=== PATIENT | female | born 1990 | race Caucasian/White ===

== ENCOUNTER 2016-03-27 20:04 | Inpatient (IN) | payer SELFPAY ==
[~2016-03-27] VITALS: Ht 165.1 cm; Wt 87.0 kg
[~2016-03-27 20:04] MED LIST: METO-157 PO
[2016-03-27 21:12] LABS: BASO % 0.1 %; BASO ABS # 0.01 K/uL (0-0.2); COMPLETE YES; EOS % 0.6 %; HEMATOCRIT 40.3 % (37-47); IG% 0.2 %; LYMPH % 26.2 %; LYMPH ABS # 2.97 K/uL (1.2-3.4); MEAN CELL VOLUME 86.7 fL (80-100); MEAN CORPUSCULAR HEMOGLOBIN 30.8 pg (25-34); MEAN CORPUSCULAR HGB CONC 35.5 g/dl (32-36); MEAN PLATELET VOLUME 11.1 fL (7.4-10.4); MONO % 4.3 %; NEUT % 68.6 %; PLATELET COUNT 214 K/uL (130-400); RED BLOOD COUNT 4.65 M/uL (4.2-5.4); WHITE BLOOD COUNT 11.33 K/uL (4.8-10.8)
--- NOTE | 2016-03-27 21:14 | EMERGENCY ROOM VISIT NOTE ---
History Report prepared by Ananya: Jake West Under the Supervision of: Dr. Dahiana Carrera M.D. First contact with patient: 20:34 Chief Complaint: OVERDOSE (INTENTIONAL) Stated Complaint: OVERDOSE History of Present Illness The patient is a 25 year old female who presents to the Emergency Room with complaints of an acute overdose that occurred earlier this evening. The patient took 4 -200mg Seroquel tabs at 7:45pm that she is prescribed in an attempt to fall asleep. She states that she filled her bathtub up to take a quick bath before going to sleep. The patient states that she has been unable to sleep due to stress and work. She has been working 10-12 hours per day for the past 10 days at [employer]. She has been stressed over a recent break up, her lease ending, and needing a new car. The patient called an ambulance because she started to feel palpitations which made her nervous. Upon arrival, EMS found a note on the patient's mirror that said "I'm sorry I wasn't good enough, you won' t be seeing me in 2017." The patient states that the note was meant for her ex who she is currently cohabitating with. She denies suicidality, and states that the note meant that she is moving to [place] in 2017. The patient did not take any other medications or alcohol. She does not cut herself. The patient gets her Seroquel prescription from Dr. Graves at [facility]. She was admitted for mental health at [place] in September 2013. At that time, she was dealing with her children being taken away from her. She was also homeless. The patient has a history of bipolar disorder, anxiety, and ADHD. Source of History: patient Onset: this evening Position: other (global) Quality: other (overdose (Seroquel)) Timing: other (acute) Modifying Factors (Worsening): other (lack of sleep, stress) Review of Systems See HPI for pertinent positives & negatives. A total of 10 systems reviewed and were otherwise negative. Past Medical & Surgical Medical Problems: (1) ASTHMA, UNSPECIFIED (2) ATTN DEFICIT W HYPERACT (3) BIPOLAR DISORDER, UNSPECIFIED (4) Borderline personality disorder (5) Cannabis abuse (6) Chronic abdominal pain (7) Depressive disorder (8) Gallstone (9) GERD (gastroesophageal reflux disease) (10) Hypokalemia (11) Migraine (12) Ovarian cyst (13) Palpitations (14) Pelvic pain (15) Tobacco abuse (16) TOBACCO USE DISORDER Surgical Problems: (1) History of cholecystectomy (2) S/p pin of distal finger fracture Family History Asthma MOTHER Blood clots MATERNAL GRANDMOTHER Diabetes mellitus FH: cancer MATERNAL GRANDMOTHER (lung CA) FH: heart disease MATERNAL GRANDMOTHER MATERNAL GRANDFATHER FH: lung disease Gallbladder disease Hypertension MATERNAL GRANDMOTHER Kidney disease Kidney stones Stroke MATERNAL GRANDFATHER Social History Smoking Status: Current Every Day Smoker Alcohol Use: none Drug Use: none Marital Status: in relationship Housing Status: other Occupation Status: employed Current/Historical Medications No Active Prescriptions or Reported Meds Allergies Coded Allergies: Nitrofurantoin (Verified Allergy, Severe, ANAPHYLAXIS, 03/27/16) Mometasone (Verified Adverse Reaction, Severe, migraines, 03/27/16) Physical Exam Vital Signs Date Time Temp Pulse Resp B/P Pulse Ox O2 Delivery O2 Flow Rate FiO2 03/28/16 00:23 75 03/27/16 23:16 98 14 112/62 97 Room Air 03/27/16 20:22 116 03/27/16 20:19 36.7 157 20 143/86 95 Room Air Physical Exam Vital signs reviewed. General: Somnolent, disheveled-appearing female. HEENT: No scleral icterus, PERRLA, neck supple. Atraumatic. Cardiovascular: Tachycardic, regular rhythm, no extra sounds. Pulmonary: Clear to auscultation bilaterally, normal work of breathing. Abdomen: Soft, nontender, nondistended, positive bowel sounds. Musculoskeletal: Atraumatic, no peripheral edema. Neurologic: Patient somnolent but arousable. Answers questions appropriately. Patient does follow commands. Skin: Warm, dry, no rash. Atraumatic. Psych: Patient denies suicidal ideations or homicidal ideations. Medical Decision & Procedures Laboratory Results Test 03/27/16 20:15 03/27/16 20:57 Urine Color YELLOW Urine Appearance CLEAR (CLEAR) Urine pH 6.5 (4.5-7.5) Urine Specific Dow 1.000 (1.000-1.030) Urine Protein NEG (NEG) Urine Glucose (UA) NEG (NEG) Urine Ketones NEG (NEG) Urine Occult Blood NEG (NEG) Urine Nitrite NEG (NEG) Urine Bilirubin NEG (NEG) Urine Urobilinogen NEG (NEG) Urine Leukocyte Esterase NEG (NEG) Urine Test NEG (NEG) Urine Opiates Screen NEG (NEG) Urine Methadone, Qualitative NEG (NEG) Urine Barbiturates NEG (NEG) Urine Phencyclidine (PCP) Level NEG (NEG) Ur Amphetamine/Methamphetamine NEG (NEG) MDMA (Ecstasy) Screen NEG (NEG) Urine Benzodiazepines Screen NEG (NEG) Urine Cocaine Metabolite NEG (NEG) Urine Marijuana (THC) POS (NEG) Activated Partial Thromboplast Time 25.0 SECONDS (21.0-31.0) Partial Thromboplastin Ratio 1.0 D-Dimer 530 ug/L FEU (0-500) Magnesium Level 1.8 mg/dl (1.8-2.4) Total Bilirubin 0.5 mg/dl (0.2-1) Direct Bilirubin 0.1 mg/dl (0-0.2) Aspartate Amino Transf (AST/SGOT) 20 U/L (15-37) Alanine Aminotransferase (ALT/SGPT) 18 U/L (12-78) Alkaline Phosphatase 88 U/L (45-117) Total Creatine Kinase 94 U/L (26-192) Creatine Kinase MB 0.5 ng/ml (0.5-3.6) Creatine Kinase MB Ratio 0.5 (0-3.0) Total Protein 7.3 gm/dl (6.4-8.2) Albumin 4.0 gm/dl (3.4-5.0) Thyroid Stimulating Hormone (TSH) 0.747 uIu/ml (0.300-4.500) Salicylates Level 2.7 mg/dl (2.8-20) Acetaminophen Level < 2 ug/ml (10-30) Ethyl Alcohol mg/dL < 3.0 mg/dl (0-3) Laboratory results per my review. Medications Administered Medications (Trade) Dose Ordered Sig/Tamra Route Start Time Stop Time Status Last Admin Dose Admin Potassium Chloride 20 meq 20 meq NOW STAT IV 03/27/16 22:06 03/27/16 22:08 DC 03/27/16 22:23 20 MEQ Sodium Chloride 1,000 ml @ 999 mls/hr Q1H1M STAT IV 03/27/16 22:23 03/27/16 23:23 DC 03/27/16 22:32 999 MLS/HR Sodium Chloride (Nss 1000ml) 1,000 ml @ 125 mls/hr Q8H STAT IV 03/27/16 22:23 03/27/16 22:36 DC 03/27/16 22:32 125 MLS/HR Potassium Chloride (Klor-Con M10) 60 meq NOW STAT PO 03/27/16 23:01 03/27/16 23:11 DC 03/27/16 23:17 60 MEQ ECG Indication: other (Overdose) Rate (beats per minute): 122 Rhythm: sinus tachycardia Findings: nonspecific-ST abn (Inferior), Q waves (Inferior), ST depression ( Lateral), T-wave inversion, other (QTC 464) Change: ST/T wave abnormalities are new in the inferior and lateral leads. ED Course 2056: Past medical records reviewed. The patient was evaluated in room C12b. A complete history and physical examination was performed. 6: Potassium Chloride 20 meq IV. 2215: Discussed the case with Poison Control. 2223: NSS 1000 ml @ 125 mls/hr, NSS 1000 ml @ 999 mls/hr. 2225: The patient took a picture of the pills before she ingested them. 2229: Spoke with Dr. Redman, [facility]. The patient will be evaluated. Medical Decision Etiologies such as mood disorder, infection, hypoglycemia, electrolyte abnormalities, cardiac sources, intracerebral event, toxicologic, neurologic, as well as others were entertained. This patient was evaluated and appeared to be in no significant distress. Physical examination is consistent with medication overdose. She is tachycardic but hemodynamically stable otherwise. She was hydrated with normal saline solution with some improvement. EKG reveals a borderline QTC. Poison control was contacted. The patient was unclear as to whether or not this was extended release or immediate release Seroquel. She needs to be observed on the athletic monitor for 6-12 hours after the ingestion. Patient has multiple psychosocial stressors including 3 children that haven't opted out through [employer], financial strain and long work hours, and a recent relationship loss. The patient with left a note concerning for suicidal statements, she took a picture of the pills and symptom to her friend prior to ingesting, and she had a bathtub full of water. Although she denies any suicidal ideation and states she just wanted to sleep, I'm concerned about the circumstances surrounding the incident. A 302 statement has been filed by EMS. At this time she will be medically admitted through the hospitalist service. Psychiatric consultation will be needed. Consults Time Called: 2219 Consulting Physician: Jama Johnson Hospitalist Returned Call: [phone]: Spoke with Jama Johnson. The patient will be evaluated. Impression Primary Impression: Medication overdose Scribe Attestation The scribe's documentation has been prepared under my direction and personally reviewed by me in its entirety. I confirm that the note above accurately reflects all work, treatment, procedures, and medical decision making performed by me. Departure Information Dispostion Being Evaluated By Hospitalist Prescriptions No Active Prescriptions or Reported Meds Referrals No Doctor, Assigned (PCP) Patient Instructions A Signature Page, My [facility]
[2016-03-27 21:22] LABS: URINE APPEARANCE CLEAR (CLEAR); URINE BILIRUBIN NEG (NEG); URINE COLOR YELLOW; URINE NITRITE NEG (NEG); URINE PH 6.5 (4.5-7.5); UROBILINOGEN NEG (NEG); ZZUR CULT IF INDIC CLEAN CATCH NO
[2016-03-27 21:31] LABS: BUN/CREATININE RATIO 9.1 (10-20); CREATININE 0.85 mg/dl (0.60-1.20); POTASSIUM 2.7 mmol/L (3.5-5.1)
[2016-03-27 21:33] LABS: MANUAL MICROSCOPIC REQUIRED? NO; REVIEW REQ? NO
[2016-03-27 21:33] LABS: ACETAMINOPHEN < 2 ug/ml (10-30)
[2016-03-27 21:39] LABS: BENZODIAZEPINE, URINE NEG (NEG); COCAINE,URINE NEG (NEG); PHENCYCLIDINE, URINE NEG (NEG)
[2016-03-27] MEDS ORDERED: POTASSIUM CHLORIDE 10 MEQ / 100ML WTR IV STA (22:06)
[2016-03-27] MEDS ORDERED: SODIUM CHLORIDE 0.9% 1000ML 1,000 ML IV STA ×2 (22:23)
[2016-03-27] MEDS ORDERED: LACTATED RINGER'S 1000ML 1,000 ML IV SCH (22:45)
[2016-03-27] MEDS ORDERED: POTASSIUM CHLORIDE 10 MEQ TABCR PO STA (23:01)
[2016-03-27 23:03] LABS: CKMB/CK RATIO 0.5 (0-3.0); MAGNESIUM 1.8 mg/dl (1.8-2.4)
[2016-03-27] MEDS ORDERED: OPTIRAY 320 IV PRN (23:45)
[2016-03-28] VITALS (8 sets, daily range): BP systolic 109–141; BP diastolic 71–90; PULSE 55–88; TEMP 36.3–36.8; O2SAT 92–100; Ht 165.1 cm; Wt 87.0 kg
[2016-03-28] MEDS ORDERED: KETOROLAC TROMETHAMINE 30 MG/ML VIAL IV PRN (01:45)
[2016-03-28] MEDS ORDERED: NITROGLYCERIN 0.4 MG SL PER TAB CHARGE SL PRN (01:45)
[2016-03-28] MEDS ORDERED: ONDANSETRON INJ 2 MG/ML 2 ML VIAL IV PRN (01:45)
[2016-03-28] MEDS ORDERED: TRAMADOL HCL 50 MG TAB PO PRN (01:45)
[2016-03-28] MEDS ORDERED: LACTATED RINGER'S 1000ML 1,000 ML IV ONE (01:45)
[2016-03-28] MEDS ORDERED: ACETAMINOPHEN 325 MG TAB PO PRN (01:45)
[2016-03-28] MEDS ORDERED: IBUPROFEN 200 MG TAB PO PRN (01:45)
[2016-03-28 06:55] LABS: BASO % 0.3 %; BASO ABS # 0.03 K/uL (0-0.2); COMPLETE YES; EOS % 3.2 %; HEMATOCRIT 36.8 % (37-47); IG% 0.2 %; LYMPH % 46.1 %; LYMPH ABS # 4.75 K/uL (1.2-3.4); MEAN CELL VOLUME 87.6 fL (80-100); MEAN CORPUSCULAR HEMOGLOBIN 29.8 pg (25-34); MONO % 6.1 %; NEUT % 44.1 %; PLATELET COUNT 182 K/uL (130-400); WHITE BLOOD COUNT 10.31 K/uL (4.8-10.8)
--- NOTE | 2016-03-28 07:24 | DIAGNOSTIC IMAGING REPORT ---
CT ANGIOGRAM OF THE CHEST CLINICAL HISTORY: Palpitations. Overdose. COMPARISON STUDY: Chest CT scans dated 07/19/2015 and 09/29/2013. TECHNIQUE: Following the IV administration of 94 cc of Optiray 320, CT angiogram of the chest was performed from the upper abdomen to the thoracic inlet utilizing the pulmonary embolus protocol. Images are reviewed in the axial, sagittal, and coronal planes. 3-D MIPS images are created and assessed. IV contrast was administered without complication. CT DOSE: 355.83 mGy.cm FINDINGS: Thyroid: Imaged portions of the thyroid gland are normal in size and attenuation. Thoracic aorta: The thoracic aorta is normal in caliber and demonstrates standard 3-vessel arch anatomy. No dissection is seen. Pulmonary vasculature: The pulmonary trunk is normal in caliber. There are no filling defects identified in main, lobar, or segmental pulmonary branches to suggest pulmonary embolus. Heart: The heart is normal in size and configuration, and without pericardial effusion. Lungs and pleural spaces: There are trace pleural effusions with dependent consolidation. The trachea and central airways are clear. Mediastinum: There is no mediastinal lymphadenopathy. Nenita: Clear. Axillae: There is no axillary lymphadenopathy. Upper abdomen: The liver is enlarged and steatotic. Cholecystectomy clips are noted. More focal fatty infiltration is seen adjacent to the falciform ligament. Skeletal structures: No lytic or blastic bony lesions are seen. IMPRESSION: 1. There is no evidence of pulmonary embolus in the main, lobar, or segmental pulmonary arteries. 2. There are trace pleural effusions with dependent airspace consolidation. This could represent atelectasis, aspiration pneumonitis, and/or pneumonia. Clinical correlation will be required. 3. Hepatic steatosis. Electronically signed by: Uriel Lopez M.D. 03/28/2016 7:22 AM
[2016-03-28 07:26] LABS: BUN/CREATININE RATIO 6.2 (10-20); CALCIUM 8.4 mg/dl (8.5-10.1); CREATININE 0.78 mg/dl (0.60-1.20); POTASSIUM 3.5 mmol/L (3.5-5.1)
[2016-03-28] MEDS ORDERED: INFLUENZA ADMINISTRATION CHARGE ONE (08:00)
[2016-03-28] MEDS ORDERED: INFLUENZA VIRUS QUAD VACCINE 0.5 ML SYR IM. ONE (08:00)
--- NOTE | 2016-03-28 08:36 | HISTORY & PHYSICAL EXAMINATION ---
DATE OF ADMISSION: 03/28/2016 PRIMARY CARE DOCTOR: Dr. Brand. Hx obtained from px and records. CHIEF COMPLAINT: Intentional drug overdose. HISTORY OF PRESENT ILLNESS: Medical history significant for bipolar, asthma, borderline personality disorder , fibromyalgia as per records, ongoing tobacco abuse, migraines, chronic abdominal pain/diarrhea secondary to IBS. Recent confinement February 2015 for vasovagal syncope. As per patient, the patient overwhelmed with stress at work. Bothered by fast heartbeat. no sob. She wanted to sleep and make heartbeat settle down. She claims she took 1 tablet each of Ativan, Topamax and Seroquel. Patient became distressed over chest discomfort from persistent palpitations. She called EMS. Patient noted to be very lethargic at home. Patient denies suicidality. As per EMS account however, there was a note on the patient's room mirror addressed to the patient's ex-partner saying "I'm sorry I wasn't good enough... you won't be seeing me in 2017." Patient currently in the Emergency Room. MEDICAL HISTORY: As above. Denies suicidality. SURGERIES: Finger fracture surgery, cholecystectomy. HOME MEDICATIONS: Include Seroquel (from Dr. Graves at [facility]) Topamax, lorazepam, sumatriptan, dicyclomine, gabapentin, duloxetine. ALLERGIES: MOMETASONE. FAMILY HISTORY: High blood pressure. PERSONAL AND SOCIAL HISTORY: Pack daily. No ETOH intake. [employer] employee. REVIEW OF SYSTEMS: As per HPI, all other ROS negative. PHYSICAL EXAMINATION: VITAL SIGNS: Blood pressure was noted to be 140/85, later 130/62, initially pulse rate 150 later 98, RR 20, temperature 37, sats 95 on room air. GENERAL: Noted to be lethargic, obese. No respiratory distress. Appropriate answers. SKIN : normal color HEENT: [place] palpebral conjunctivae, dry mucosa. NECK: Supple. Short neck. CHEST: CTA, no anterior chest wall tenderness. HEART: Regular rate and rhythm. ABDOMEN: Soft. EXTREMITIES: No edema. no tenderness NEUROLOGIC: lethargy. LABORATORIES: Hemoglobin 14, hematocrit 40, white cell count is 11.3, platelets 214. Sodium 140, potassium 2.7, chloride 102, CO2 of 24, BUN 8, creatinine 1, glucose 112. ddimer abn, trop 0 EKG rate 125, sinus tachy, TW flat lat leads CT chest initial read, no PE. Urine toxicology positive for marijuana. Alcohol level was negative. ASSESSMENT: 1. Palpitations secondary to sinus tachycardia multifactorial : hypokalemia, mild clinical dehydration (chronic diarrhea, hx IBS as per records) polysubstance overdose (although intentional, px denies suicidality) anxiety 2. Lethargy 2 to drug overdose 3. Bipolar DSO as per records mood could be better as per px Denies suicidality. 4. borderline personality DSO as per records 5. fibromyalgia as per records 6. ongoing tobacco abuse PLAN: PCU. Replace potassium. IVF Psych consult RE possible suicidality. Hold home neuro-psychotropics until patient more awake and until px seen by Psychiatry nicotine patch DVT prophylaxis, SCDs. Full code. MTDD
[2016-03-28] MEDS: NICOTINE 21 MG/24 HR TDSY TD SCH ×2 (09:00→19:48)
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
[2016-03-28 18:14] LABS: PREG INTERNAL NEGATIVE QC NEG CLEAR BACKGROUND; PREG INTERNAL POSITIVE QC POS CONTROL LINE
--- NOTE | 2016-03-28 18:22 | Discharge Instructions ---
Discharge Instructions Admission Reason for Admission: Hypokalemia, Palpitations Discharge Discharge Diagnosis / Problem: Bipolar depression Discharge Goals Goal(s): Prevent Disease Progression Activity Recommendations Activity Limitations: as noted below (per receiving facility) . Instructions / Follow-Up Instructions / Follow-Up Please ensure you see your PCP within one week of discharge from the receiving facility to ensure they are aware of all the recent events. I strongly recommend stopping smoking; methods to help quit can be given through your PCP. It was a pleasure taking care of you! Call if you have any questions or problems. You can reach a [facility] hospitalist on duty at [facility] 24 hours a day by calling [phone]. Take care of yourself. Leanna Gannon, [facility] Center[facility] Current Hospital Diet Patient's current hospital diet: Low Lactose Diet Discharge Diet Recommended Diet: Regular Diet Procedures Procedures Performed: None Pending Studies Studies pending at discharge: yes List of pending studies: Urine marajuana THC level Medical Emergencies . Who to Call and When: Medical Emergencies: If at any time you feel your situation is an emergency, please call 911 immediately. . Non-Emergent Contact Non-Emergency issues call your: Primary Care Provider, Specialist (Mental Health Provider) . . "Provider Documentation" section prepared by Leanna Gannon. VTE Core Measure Inpt VTE Proph given/why not?: SCD's (pt ambulatory)
[2016-03-28] MEDS ORDERED: NICOTINE POLACRILEX 2 MG GUM MT PRN (20:45)
--- NOTE | 2016-03-28 20:58 | Progress Note ---
Medicine Progress Note Date & Time of Visit: Mar 28, 2016 at 17:28. Subjective 25 yo F called EMS after feeling her heart race after taking 4 times the regular dosage of Seroquel that she is on. She reports to me that she has no suicidal intention and states that she is feeling well physically. She states that the note left on her mirror was for her ex whom she lives with, and was to let him know that she was moving away to [place]. It read something to the effect that she was sorry she wasn't good enough and he doesn't have to worry about seeing her anymore in 2017. When EMS arrived on the scene they found this note and a bathtub full of water. Per psych she hasn't reliably seen her case checker in over a month. Per the patient, she hasn't taken her "meds" in 6 months because of financial hardship including Ativan 2mg qHS (she said this was recently changed, even though she "hasn't been on her meds."), Topamax and Imitrex injections, Seroquel and Neurontin. She is upset and defensive when she is telling me all of this. She runs on to say how she was just trying to sleep because she hasn't had any sleep for the last 3 nights. When I asked her why she felt that it might have been stress keeping her up. Denies chest pain, shortness of breath, pain, nausea, vomiting, headache, diarrhea or any other symptoms at this time. Objective Last 8 Hrs Date Time Temp Pulse Resp B/P Pulse Ox O2 Delivery O2 Flow Rate FiO2 03/28/16 15:53 36.8 61 18 127/82 92 Room Air 03/28/16 12:00 Room Air 03/28/16 11:06 36.4 74 16 109/71 98 Room Air Physical Exam: GEN: WNWD, in no acute distress, alert and appropriate HEENT: NC/AT, PERRL, normal sclerae CARDIO: reg rate, S1/2 heard without m/g/r LUNGS: CTA bilaterally, no crackles, rales or wheezes, good diaphragmatic excursion ABD: soft, non-tender, non-distended, no rebound or guarding EXTREMITY: RP and DP palpable 2+ bilat, no LE swelling or edema, extremities are warm and well-perfused NEURO: CN 2-12 grossly intact, sensation intact throughout, no gross focal deficits. MUSC: 5/5 strength throughout, no gross focal deficits SKIN: warm and dry Laboratory Results: Last 24 Hours Test 03/27/16 20:15 03/27/16 20:57 03/28/16 06:12 Urine Color YELLOW Urine Appearance CLEAR Urine pH 6.5 Urine Specific [place] 1.000 Urine Protein NEG Urine Glucose (UA) NEG Urine Ketones NEG Urine Occult Blood NEG Urine Nitrite NEG Urine Bilirubin NEG Urine Urobilinogen NEG Urine Leukocyte Esterase NEG Urine Opiates Screen NEG Urine Methadone, Qualitative NEG Urine Barbiturates NEG Urine Phencyclidine (PCP) Level NEG Ur Amphetamine/Methamphetamine NEG MDMA (Ecstasy) Screen NEG Urine Benzodiazepines Screen NEG Urine Cocaine Metabolite NEG Urine Marijuana (THC) POS White Blood Count 11.33 K/uL 10.31 K/uL Red Blood Count 4.65 M/uL 4.20 M/uL Hemoglobin 14.3 g/dL 12.5 g/dL Hematocrit 40.3 % 36.8 % Mean Corpuscular Volume 86.7 fL 87.6 fL Mean Corpuscular Hemoglobin 30.8 pg 29.8 pg Mean Corpuscular Hemoglobin Concent 35.5 g/dl 34.0 g/dl Platelet Count 214 K/uL 182 K/uL Mean Platelet Volume 11.1 fL 11.0 fL Neutrophils (%) (Auto) 68.6 % 44.1 % Lymphocytes (%) (Auto) 26.2 % 46.1 % Monocytes (%) (Auto) 4.3 % 6.1 % Eosinophils (%) (Auto) 0.6 % 3.2 % Basophils (%) (Auto) 0.1 % 0.3 % Neutrophils # (Auto) 7.77 K/uL 4.55 K/uL Lymphocytes # (Auto) 2.97 K/uL 4.75 K/uL Monocytes # (Auto) 0.49 K/uL 0.63 K/uL Eosinophils # (Auto) 0.07 K/uL 0.33 K/uL Basophils # (Auto) 0.01 K/uL 0.03 K/uL RDW Standard Deviation 41.8 fL 42.8 fL RDW Coefficient of Variation 13.2 % 13.3 % Immature Granulocyte % (Auto) 0.2 % 0.2 % Immature Granulocyte # (Auto) 0.02 K/uL 0.02 K/uL Activated Partial Thromboplast Time 25.0 SECONDS Partial Thromboplastin Ratio 1.0 D-Dimer 530 ug/L FEU Sodium Level 144 mmol/L 144 mmol/L Potassium Level 2.7 mmol/L 3.5 mmol/L Chloride Level 107 mmol/L 111 mmol/L Carbon Dioxide Level 24 mmol/L 25 mmol/L Anion Gap 13.0 mmol/L 8.0 mmol/L Blood Urea Nitrogen 8 mg/dl 5 mg/dl Creatinine 0.85 mg/dl 0.78 mg/dl Est Creatinine Clear Calc Drug Dose 103.6 ml/min 118.0 ml/min Estimated GFR () 108.8 120.8 Estimated GFR (Non- 93.9 104.2 BUN/Creatinine Ratio 9.1 6.2 Random Glucose 116 mg/dl 77 mg/dl Calcium Level 9.0 mg/dl 8.4 mg/dl Magnesium Level 1.8 mg/dl Total Bilirubin 0.5 mg/dl Direct Bilirubin 0.1 mg/dl Aspartate Amino Transf (AST/SGOT) 20 U/L Alanine Aminotransferase (ALT/SGPT) 18 U/L Alkaline Phosphatase 88 U/L Total Creatine Kinase 94 U/L Creatine Kinase MB 0.5 ng/ml Creatine Kinase MB Ratio 0.5 Troponin I < 0.015 ng/ml 0.022 ng/ml Total Protein 7.3 gm/dl Albumin 4.0 gm/dl Thyroid Stimulating Hormone (TSH) 0.747 uIu/ml Salicylates Level 2.7 mg/dl Acetaminophen Level < 2 ug/ml Ethyl Alcohol mg/dL < 3.0 mg/dl Assessment & Plan 25 yo F with bipolar depression and h/o hospitalization for attempted suicide admitted for concern for intentional overdose 1. Tachycardia likely 2/2 dehydration- resolved 2. Hypokalemia-replaced 3. seroquel overdose-medically stable, urine tox was only pos for MJ, ETOH level was negative, ASA level negative. EKG unremarkable. 4. Bipolar depression 5. borderline personality DSO as per records 6. ongoing tobacco abuse-Nicotine replacement DVT prophylaxis, SCDs. Full code. In front of me I am seeing a distressed woman with a h/o suicidal intentions and hospitalization for this in 2013 who has a known h/o bipolar disorder and no demonstrated ability to use resources available to her to cope with the hardships she is going through. For this reason, I feel she is at high risk for suicidal ideations and possibly intent if she leaves here. Therefore,a 302 petition was filed for inpatient mental health services. Leanna Gannon DO [facility] Hospitalist Current Inpatient Medications: Current Inpatient Medications Medications (Trade) Dose Ordered Sig/Tamra Route Start Time Stop Time Status Last Admin Dose Admin Ioversol (Optiray 320) 100 ml UD PRN IV 03/27/16 23:45 03/31/16 23:44 Acetaminophen (Tylenol Tab) 650 mg Q4H PRN PO 03/28/16 01:45 04/27/16 01:44 Nitroglycerin (Nitrostat Tab) 0.4 mg UD PRN SL 03/28/16 01:45 04/27/16 01:44 Ketorolac Tromethamine (Toradol Inj) 30 mg Q6H PRN IV 03/28/16 01:45 04/02/16 01:44 Ibuprofen (Advil Tab) 400 mg Q6H PRN PO 03/28/16 01:45 04/27/16 01:44 Tramadol HCl (Ultram Tab) 25 mg Q6H PRN PO 03/28/16 01:45 04/27/16 01:44 Ondansetron HCl (Zofran Inj) 4 mg Q6H PRN IV 03/28/16 01:45 04/27/16 01:44 Nicotine (Nicoderm Cq 21MG Patch) 1 patch QAM TD 03/28/16 09:00 04/27/16 08:59 Miscellaneous (Remove Nicoderm Patch) 1 ea HS N/A 03/28/16 21:00 04/27/16 20:59
--- NOTE | 2016-03-31 14:08 | Discharge Summary ---
Discharge Summary Admission Date: Mar 28, 2016 at 01:02 Discharge Date: Mar 28, 2016 Discharge Disposition: Acute care mental health Principal Diagnosis: Medication overdose with h/o suicidal ideations h/o Bipolar Depression Procedures: none. Vaccinations: Flu 03/28 Consultations: Psychiatry Medication Reconciliation Medication Profile: No Active Prescriptions or Reported Meds Admission Information HPI (per Admitting provider): HISTORY OF PRESENT ILLNESS: Medical history significant for bipolar, asthma, borderline personality disorder , fibromyalgia as per records, ongoing tobacco abuse, migraines, chronic abdominal pain/diarrhea secondary to IBS. Recent confinement February 2015 for vasovagal syncope. As per patient, the patient overwhelmed with stress at work. Bothered by fast heartbeat. no sob. She wanted to sleep and make heartbeat settle down. She claims she took 1 tablet each of Ativan, Topamax and Seroquel. Patient became distressed over chest discomfort from persistent palpitations. She called EMS. Patient noted to be very lethargic at home. Patient denies suicidality. As per EMS account however, there was a note on the patient's room mirror addressed to the patient's ex-partner saying "I'm sorry I wasn't good enough... you won't be seeing me in 2017." Physical Exam (per Admitting): PHYSICAL EXAMINATION: VITAL SIGNS: Blood pressure was noted to be 140/85, later 130/62, initially pulse rate 150 later 98, RR 20, temperature 37, sats 95 on room air. GENERAL: Noted to be lethargic, obese. No respiratory distress. Appropriate answers. SKIN : normal color HEENT: [place] palpebral conjunctivae, dry mucosa. NECK: Supple. Short neck. CHEST: CTA, no anterior chest wall tenderness. HEART: Regular rate and rhythm. ABDOMEN: Soft. EXTREMITIES: No edema. no tenderness NEUROLOGIC Hospital Course 25 yo F with bipolar depression and h/o hospitalization for attempted suicide admitted for concern for intentional overdose 1. Tachycardia likely 2/2 dehydration- resolved 2. Hypokalemia-replaced 3. seroquel overdose-medically stable, urine tox was only pos for MJ, ETOH level was negative, ASA level negative. EKG unremarkable. 4. Bipolar depression 5. borderline personality DSO as per records 6. ongoing tobacco abuse-Nicotine replacement DVT prophylaxis, SCDs. Full code. In front of me I am seeing a distressed woman with a h/o suicidal intentions and hospitalization for this in 2013 who has a known h/o bipolar disorder and no demonstrated ability to use resources available to her to cope with the hardships she is going through. Per EMS, a note was found taped to her mirror that was telling her ex, "sorry I wasn't good enough, you won't be seeing me in 2017." Also, there was a bathtub full of water despite her admission that she took 4 times the amount of her prescription Seroquel "in order to just get some sleep." For this reason, I feel she is at high risk for suicidal ideations and possibly intent if she leaves here. Therefore,a 302 petition was filed for inpatient mental health services. Dr. Wallace with psychiatry feels that inpatient psychiatric care is appropriate. The patient was transferred directly to an inpatient facility for further treatment. DO Enrique Ruffin Conchita Total time spent on discharge = 60 minutes This includes examination of the patient, discharge planning, medication reconciliation, and communication with other providers. Discharge Instructions Discharge Instructions Admission Reason for Admission: Hypokalemia, Palpitations Discharge Discharge Diagnosis / Problem: Bipolar depression Discharge Goals Goal(s): Prevent Disease Progression Activity Recommendations Activity Limitations: as noted below (per receiving facility) . Instructions / Follow-Up Instructions / Follow-Up Please ensure you see your PCP within one week of discharge from the receiving facility to ensure they are aware of all the recent events. I strongly recommend stopping smoking; methods to help quit can be given through your PCP. It was a pleasure taking care of you! Call if you have any questions or problems. You can reach a [facility] hospitalist on duty at [facility] 24 hours a day by calling [phone]. Take care of yourself. DO Enrique Ruffin Conchita Current Hospital Diet Patient's current hospital diet: Low Lactose Diet Discharge Diet Recommended Diet: Regular Diet Procedures Procedures Performed: None Pending Studies Studies pending at discharge: yes List of pending studies: Urine [place] THC level Medical Emergencies . Who to Call and When: Medical Emergencies: If at any time you feel your situation is an emergency, please call 911 immediately. . Non-Emergent Contact Non-Emergency issues call your: Primary Care Provider, Specialist (Mental Health Provider) . . "Provider Documentation" section prepared by Leanna Gannon. VTE Core Measure Inpt VTE Proph given/why not?: SCD's (pt ambulatory)
== END 2016-03-28 22:30 | DRG 918 ==
LOC: ENRESERVDT → ENRESERVTM → EDBD 20:04 → C.EDC 20:05 → C.2T 03-28 01:02
PROVIDERS: ADMIT Internal Medicine; ATTEND Hospitalist
DX: T43.592A Poisoning by other antipsychotics and neuroleptics, intentional self-harm, initial encounter (principal); F31.9 Bipolar disorder, unspecified; F12.10 Cannabis abuse, uncomplicated; E86.0 Dehydration; R00.0 Tachycardia, unspecified; R00.2 Palpitations; E87.6 Hypokalemia; F41.9 Anxiety disorder, unspecified; J45.909 Unspecified asthma, uncomplicated; K58.0 Irritable bowel syndrome with diarrhea; M79.7 Fibromyalgia; F60.3 Borderline personality disorder; F17.200 Nicotine dependence, unspecified, uncomplicated; Z62.810 Personal history of physical and sexual abuse in childhood; Z91.19 Patient's noncompliance with other medical treatment and regimen; Z82.5 Family history of asthma and other chronic lower respiratory diseases; Z83.3 Family history of diabetes mellitus; Z80.1 Family history of malignant neoplasm of trachea, bronchus and lung; Z82.3 Family history of stroke; Z82.49 Family history of ischemic heart disease and other diseases of the circulatory system; Z79.899 Other long term (current) drug therapy

== ENCOUNTER 2016-05-21 23:29 | Emergency (ER) | payer SELFPAY ==
[~2016-05-21] VITALS: Ht 162.6 cm; Wt 89.3 kg
[2016-05-21 23:34] VITALS: Ht 162.6 cm; Wt 89.3 kg
--- NOTE | 2016-05-22 00:39 | EMERGENCY ROOM VISIT NOTE ---
History Report prepared by Ananya: Jake West Under the Supervision of: Dr. Len Bateman M.D. First contact with patient: 00:33 Chief Complaint: HEADACHE Stated Complaint: MIGRAINE FOR 3 DAYS History of Present Illness The patient is a 25 year old female who presents to the Emergency Room with complaints of a persistent migraine headache for the past three days. The headache is located behind both eyes. She has tried taking Imitrex and Excedrin , which have not relieved the headache. The patient can usually control her migraines with Imitrex. The patient also complains of photophobia and nausea. She also has some neck pain. She has been experiencing migraines for the past 20 years. The patient denies weakness or numbness. She does not have any sick contacts. The patient has a history of bipolar disorder. She has not had any suicidal thoughts recently and has been compliant with her medications. Source of History: patient, family Onset: three days Position: head Quality: other (migraine) Timing: other (persistent) Associated Symptoms: + nausea, + neck pain, No numbness, No weakness Review of Systems See HPI for pertinent positives & negatives. A total of 10 systems reviewed and were otherwise negative. Past Medical & Surgical Medical Problems: (1) ASTHMA, UNSPECIFIED (2) ATTN DEFICIT W HYPERACT (3) BIPOLAR DISORDER, UNSPECIFIED (4) Borderline personality disorder (5) Cannabis abuse (6) Chronic abdominal pain (7) Depressive disorder (8) Gallstone (9) GERD (gastroesophageal reflux disease) (10) Hypokalemia (11) Migraine (12) Ovarian cyst (13) Palpitations (14) Pelvic pain (15) Tobacco abuse (16) TOBACCO USE DISORDER Surgical Problems: (1) History of cholecystectomy (2) S/p pin of distal finger fracture Old medical records were reviewed. Nurse's notes were reviewed and I agree with. Family History Asthma MOTHER Blood clots MATERNAL GRANDMOTHER Diabetes mellitus FH: cancer MATERNAL GRANDMOTHER (lung CA) FH: heart disease MATERNAL GRANDMOTHER MATERNAL GRANDFATHER FH: lung disease Gallbladder disease Hypertension MATERNAL GRANDMOTHER Kidney disease Kidney stones Stroke MATERNAL GRANDFATHER Social History Smoking Status: Current Every Day Smoker Alcohol Use: none Drug Use: none Marital Status: in relationship Housing Status: other Occupation Status: employed Current/Historical Medications Scheduled PRN Zbrfmpi-Fgfpopaoiqcxx-Qgfaqfau (Excedrin Migraine), 1 DOSE PO UD PRN for Migraine Sumatriptan Succinate (Imitrex), 1 DOSE PO UD PRN for Migraine Allergies Coded Allergies: Nitrofurantoin (Verified Allergy, Severe, ANAPHYLAXIS, 03/27/16) Mometasone (Verified Adverse Reaction, Severe, migraines, 03/27/16) Physical Exam Vital Signs Date Time Temp Pulse Resp B/P Pulse Ox O2 Delivery O2 Flow Rate FiO2 05/22/16 01:09 36.8 78 18 117/73 97 05/22/16 00:55 78 18 117/73 97 Room Air 05/21/16 23:34 36.8 91 18 116/76 98 Room Air Physical Exam General: Mildly uncomfortable young female complaining of headache but otherwise in no acute distress. Mild photophobia. HEENT: Normal cephalic atraumatic. Pupils are equal round and reactive to light. Extraocular movements are intact. Oropharynx is pink with moist mucous membranes. No swelling of the mouth lips or tongue. Neck: Supple with a midline trachea. No meningeal signs or stiffness, no JVD or bruits. No Stridor. Chest: Clear to auscultation bilaterally. No wheezes or rhonchi. No increased work of breathing. Heart: regular rate and rhythm. Abdomen: Soft nontender, nondistended without rebound guarding or rigidity. Extremities: No cyanosis clubbing or edema. No calf tenderness or assymetry Spine/Back. Non tender to palpation. No CVA tenderness Skin: Good turgor without rashes. Neurologic exam: Cranial nerves two through 12 are intact. Motor and sensation are intact and symmetrical throughout. Medical Decision & Procedures Medications Administered Medications (Trade) Dose Ordered Sig/Tamra Route Start Time Stop Time Status Last Admin Dose Admin Hydromorphone HCl (Dilaudid Inj) 1 mg NOW STAT IM 05/22/16 00:42 05/22/16 00:44 DC 05/22/16 00:51 1 MG Promethazine HCl (Phenergan Inj) 25 mg NOW STAT IM 05/22/16 00:42 05/22/16 00:44 DC 05/22/16 00:51 25 MG ED Course 0034: Past medical records reviewed. The patient was evaluated in room A2, and a complete history and physical examination were performed. 0042: Phenergan 25 mg IM, Dilaudid 1 mg IM. 0050: The patient is ready for discharge. Medical Decision Differential diagnosis includes acute migraine and toxicologic process. This patient's comes in having a headache that is similar to previous migraines. She is not driving. She has a normal neurologic exam. She has nothing to suggest trauma or meningitis or encephalitis. I have reviewed her old records. She looks well on exam. She was given Dilaudid 1 mg IM and Phenergan 25 mg IM is her typical medications for her. her boyfriend is driving. she denies any suicidal or homicidal ideations. She says her bipolar is in stable after being started on meds in March. She will be discharged home. She will return if headache different than typical, worsening of symptoms , fever orchills, any new problems concerns. Follow-up with her doctor Tuesday for recheck. Impression Primary Impression: Headache Scribe Attestation The scribe's documentation has been prepared under my direction and personally reviewed by me in its entirety. I confirm that the note above accurately reflects all work, treatment, procedures, and medical decision making performed by me. Departure Information Dispostion Home / Self-Care Referrals No Doctor, Assigned (PCP) Forms HOME CARE DOCUMENTATION FORM, IMPORTANT VISIT INFORMATION Patient Instructions My [facility] Additional Instructions Rest Drink plenty of fluids REturn if: worsening of symptoms, fever, numbness or weakness, any new problems or concerns Follow-up with your doctor this week for recheck
[2016-05-22] MEDS ORDERED: PROMETHAZINE HCL INJ 25 MG/ML 1 ML VIAL IM STA (00:42)
[2016-05-22] MEDS ORDERED: HYDROmorphone INJ 1 MG/ML SYR IM STA (00:42)
[2016-05-22] MEDS ORDERED: ASPI-390 PO (00:54)
[2016-05-22] MEDS ORDERED: SUMA100T16 PO (00:54)
[2016-05-22 01:09] VITALS: BP 117/73; PULSE 78; TEMP 36.8; O2SAT 97
== END 2016-05-22 01:10 | disposition home or self-care (01) ==
LOC: C.EDB 23:30 → C.EDA 05-22 01:10
DX: G43.909 Migraine, unspecified, not intractable, without status migrainosus (principal); F31.9 Bipolar disorder, unspecified; J45.909 Unspecified asthma, uncomplicated; F60.3 Borderline personality disorder; K21.9 Gastro-esophageal reflux disease without esophagitis; E87.6 Hypokalemia; F17.210 Nicotine dependence, cigarettes, uncomplicated; Z90.49 Acquired absence of other specified parts of digestive tract; Z82.5 Family history of asthma and other chronic lower respiratory diseases; Z82.49 Family history of ischemic heart disease and other diseases of the circulatory system; Z82.0 Family history of epilepsy and other diseases of the nervous system; Z83.3 Family history of diabetes mellitus; Z80.1 Family history of malignant neoplasm of trachea, bronchus and lung

== ENCOUNTER 2016-08-15 17:51 | Emergency (ER) | payer SELFPAY ==
[~2016-08-15] VITALS: Ht 162.6 cm; Wt 82.4 kg
[~2016-08-15 17:51] MED LIST changes: +ASPI-390 PO; -METO-157 PO; +SUMA100T16 PO
[2016-08-15 17:56] VITALS: TEMP 36.7; Ht 162.6 cm; Wt 82.4 kg
--- NOTE | 2016-08-15 18:41 | DIAGNOSTIC IMAGING REPORT ---
RIGHT HAND 3 VIEWS HISTORY: R middle finger pain; closed in door Right COMPARISON: None. FINDINGS: There is no fracture or dislocation. Soft tissues are unremarkable. No radiopaque foreign bodies. IMPRESSION: No fractures. Electronically signed by: Rigo Cancino M.D. 08/15/2016 6:39 PM Dictated Date/Time: 08/15/2016 6:37 PM
[2016-08-15 19:03] VITALS: BP 112/67; PULSE 64; O2SAT 98
--- NOTE | 2016-08-16 23:44 | EMERGENCY ROOM VISIT NOTE ---
ED Visit Note First contact with patient: 18:00 Chief Complaint: Right middle finger pain. History of Present Illness: Ms. Rubalcava is a 26-year-old white female who ambulates into the ED accompanied by her and son complaining of right middle finger pain over the middle and distal phalanxes. Historically patient reports she broke her distal phalanx previously in an accident a couple years ago and required pinning which has left her DIP joint permanently flexed. Patient reports 3 days ago she accidentally struck her middle finger on a door. Since that time she has been having increasing pain and swelling over the middle and distal phalanx and the DIP joint. Currently she describes her pain as sharp and throbbing. She rates her discomfort 6/10. The pain is nonradiating. Pain worsens with palpation and flexion and extension of the DIP joint. She has not identified any alleviating factors related to the pain. She reports she has not taken any medications for pain prior to arrival at the hospital. Associated with her pain she reports she has a numbness sensation throughout the distal phalanxe. She denies other finger pain, other hand pain. Review of Systems: As noted above in history of present illness. Past Medical History: Asthma, unspecified stomach disorder, kidney stones, frequent urinary tract infections, status post cholecystectomy and right middle finger fracture repair. Current Medications: Patient denies. Allergies to Medications: Mometasone, nitrofurantoin. Social History: Patient is currently employed; she feels safe in her home environment; she admits to tobacco use and denies alcohol use. Physical Examination: Vital Signs: Date Time Temp Pulse Resp B/P Pulse Ox O2 Delivery O2 Flow Rate FiO2 08/15/16 19:03 64 16 112/67 98 08/15/16 17:56 36.7 91 18 112/71 99 Room Air GENERAL: 26-year-old female in mild to moderate distress due to pain, nontoxic- appearing, afebrile and hemodynamically stable. NEUROLOGICAL: Awake, alert and oriented to person, place and time. Answering questions appropriately and following commands. SKIN: Warm, dry and pink. No soft tissue trauma noted. RIGHT HAND: No gross bony deformity. Moderate tenderness over the distal aspects of the middle phalanx and distal phalanx of the middle finger. There is mild swelling and a small contusion. She had difficulty moving the DIP from this injury but also from her previous surgery. She had no difficult moving the PIP joint. Throughout the finger the skin was warm and pink and capillary refill is brisk. She had decreased sensation to light touch. ED Course: Patient is assessed as noted above. Patient is given ice for pain and comfort; she refused pain medications. Right Hand X-Rays: Were read by myself and the radiologist showing no acute fractures or dislocations. No soft tissue swelling or radiopaque foreign bodies. Patient's middle finger was placed in a longer metal finger splint. Patient was educated about today's findings and instructed on her treatment plan ; she verbalizes understanding and agreement with this plan Clinical Impression: Right middle finger contusion. Disposition: Patient discharged home in stable condition accompanied by her ; prior to departure she was reassessed and subjectively reported she was pain-free. Plan: Comfort measures including rest, ice, splint use and ibuprofen and Tylenol were discussed with the patient. Patient was encouraged to follow-up with orthopedics if no better in 7-10 days. Patient was encouraged return to the ED for worsening/uncontrolled pain, uncontrolled swelling, worsening numbness/tingling or any new/concerning symptoms.
== END 2016-08-15 19:05 | disposition home or self-care (01) ==
LOC: C.EDB 17:53 → C.EDD 19:05
DX: S60.031A Contusion of right middle finger without damage to nail, initial encounter (principal); W22.8XXA Striking against or struck by other objects, initial encounter; F17.210 Nicotine dependence, cigarettes, uncomplicated

== ENCOUNTER 2016-10-14 02:34 | Emergency (ER) | payer SELFPAY ==
[~2016-10-14] VITALS: Ht 162.6 cm; Wt 80.5 kg
[2016-10-14 02:38] VITALS: Ht 162.6 cm; Wt 80.5 kg
[2016-10-14] MEDS ORDERED: KETOROLAC TROMETHAMINE 30 MG/ML VIAL IV STA (02:52)
[2016-10-14] MEDS ORDERED: SODIUM CHLORIDE 0.9% 1000ML 1,000 ML IV STA (02:52)
--- NOTE | 2016-10-14 02:56 | EMERGENCY ROOM VISIT NOTE ---
History Report prepared by Ananya: Kerline Seymour Under the Supervision of: Dr. Char Chen D.O. First contact with patient: 02:42 Chief Complaint: KIDNEY STONE Stated Complaint: SIDE PAIN, POSSIBLE KIDNEY STONE, CAN'T PEE History of Present Illness The patient is a 26 year old female who presents to the Emergency Room with complaints of worsening right sided flank pain beginning a few days prior to arrival. The patient states that she is having trouble urinating and is experiencing pain with urination. She also notes her pain radiates to her right groin. The patient initially thought she had a UTI as she has a history of UITs. She drank water and cranberry juice. The patient's symptoms worsened and she believes she has a kidney stone. She does have a history of a kidney stone. The patient denies nausea. 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 Review of Systems See HPI for pertinent positives & negatives. A total of 10 systems reviewed and were otherwise negative. Past Medical & Surgical Medical Problems: (1) ASTHMA, UNSPECIFIED (2) ATTN DEFICIT W HYPERACT (3) BIPOLAR DISORDER, UNSPECIFIED (4) Borderline personality disorder (5) Cannabis abuse (6) Chronic abdominal pain (7) Depressive disorder (8) Gallstone (9) GERD (gastroesophageal reflux disease) (10) Hypokalemia (11) Migraine (12) Ovarian cyst (13) Palpitations (14) Pelvic pain (15) Tobacco abuse (16) TOBACCO USE DISORDER Surgical Problems: (1) History of cholecystectomy (2) S/p pin of distal finger fracture Family History Asthma MOTHER Blood clots MATERNAL GRANDMOTHER Diabetes mellitus FH: cancer MATERNAL GRANDMOTHER (lung CA) FH: heart disease MATERNAL GRANDMOTHER MATERNAL GRANDFATHER FH: lung disease Gallbladder disease Hypertension MATERNAL GRANDMOTHER Kidney disease Kidney stones Stroke MATERNAL GRANDFATHER Social History Smoking Status: Current Every Day Smoker Alcohol Use: none Drug Use: none Marital Status: in relationship Housing Status: other Occupation Status: employed Current/Historical Medications No Active Prescriptions or Reported Meds Allergies Coded Allergies: Nitrofurantoin (Verified Allergy, Severe, ANAPHYLAXIS, 10/14/16) Mometasone (Verified Adverse Reaction, Severe, migraines, 10/14/16) Physical Exam Vital Signs Date Time Temp Pulse Resp B/P (MAP) Pulse Ox O2 Delivery O2 Flow Rate FiO2 10/14/16 05:34 36.5 49 18 124/40 97 10/14/16 04:45 49 18 124/40 97 Room Air 10/14/16 02:38 36.5 60 18 155/84 100 Room Air Physical Exam GENERAL: Patient is uncomfortable appearing. HEENT: Head - normocephalic and atraumatic Pupils are equal, round, and reactive to light. Extraocular eye muscles are intact, and sclera are anicteric. Nose - moist nasal mucosa without discharge. Mouth - moist buccal mucosa. Oropharynx is nonerythematous and there is no tonsillar exudate or edema noted. Neck: Supple; no JVD, nuchal rigidity, cervical lymphadenopathy. Heart: Regular rate and rhythm. There is a normal S1 and S2 with no murmurs, clicks, or gallops appreciated. Lungs: Clear to auscultation bilaterally with no wheezes, rales, or rhonchi. Abdomen: Soft, tenderness to right lower quadrant and right flank, nondistended , with good bowel sounds. There are no palpable pulsatile masses or hepatosplenomegaly. There is no guarding, rigidity, or rebound noted. Extremities: No evidence of cyanosis, clubbing, or edema. There are easily palpable peripheral pulses. Skin: warm and dry with good turgor and no rashes. Medical Decision & Procedures ER Provider Diagnostic Interpretation: US results as stated below per my review and radiologist interpretation: US RENAL: At least moderate to severe right hydronephrosis potentially due to 3mm calculus at the right aspect of the bladder near the UVJ. Mild left hydronephrosis. No ascites. No other abnormalities on limited assessment. Bladder is normal in size. Radiologist: Luis Armando Reeves MD Laboratory Results 10/14/16 02:45 Red Blood Count 5.02, Mean Corpuscular Volume 89.4, Mean Corpuscular Hemoglobin 30.3, Mean Corpuscular Hemoglobin Concent 33.9, Mean Platelet Volume 10.4, Neutrophils (%) (Auto) 43.8, Lymphocytes (%) (Auto) 46.8, Monocytes (%) (Auto) 6.1, Eosinophils (%) (Auto) 2.9, Basophils (%) (Auto) 0.2, Neutrophils # (Auto) 6.92, Lymphocytes # (Auto) 7.41, Monocytes # (Auto) 0.97, Eosinophils # (Auto) 0.46, Basophils # (Auto) 0.03 10/14/16 02:45 Test 10/14/16 02:42 10/14/16 02:45 Urine Color YELLOW Urine Appearance CLOUDY (CLEAR) Urine pH 5.5 (4.5-7.5) Urine Specific [place] >= 1.030 (1.000-1.030) Urine Protein 1+ (NEG) Urine Glucose (UA) NEG (NEG) Urine Ketones TRACE (NEG) Urine Occult Blood 2+ (NEG) Urine Nitrite NEG (NEG) Urine Bilirubin NEG (NEG) Urine Urobilinogen NEG (NEG) Urine Leukocyte Esterase NEG (NEG) Urine RBC 5-10 /hpf (0-4) Urine WBC 1-5 /hpf (0-5) Urine Epithelial Cells >30 /lpf (0-5) Urine Calcium Oxalate Crystals PRESENT (NONE PRSENT) Urine Bacteria NEG (NEG) Urine Mucus PRESENT (NONE PRSENT) Urine Test NEG (NEG) White Blood Count 15.82 K/uL (4.8-10.8) Red Blood Count 5.02 M/uL (4.2-5.4) Hemoglobin 15.2 g/dL (12.0-16.0) Hematocrit 44.9 % (37-47) Mean Corpuscular Volume 89.4 fL (80-100) Mean Corpuscular Hemoglobin 30.3 pg (25-34) Mean Corpuscular Hemoglobin Concent 33.9 g/dl (32-36) Platelet Count 270 K/uL (130-400) Mean Platelet Volume 10.4 fL (7.4-10.4) Neutrophils (%) (Auto) 43.8 % Lymphocytes (%) (Auto) 46.8 % Monocytes (%) (Auto) 6.1 % Eosinophils (%) (Auto) 2.9 % Basophils (%) (Auto) 0.2 % Neutrophils # (Auto) 6.92 K/uL (1.4-6.5) Lymphocytes # (Auto) 7.41 K/uL (1.2-3.4) Monocytes # (Auto) 0.97 K/uL (0.11-0.59) Eosinophils # (Auto) 0.46 K/uL (0-0.5) Basophils # (Auto) 0.03 K/uL (0-0.2) RDW Standard Deviation 44.5 fL (36.4-46.3) RDW Coefficient of Variation 13.5 % (11.5-14.5) Immature Granulocyte % (Auto) 0.2 % Immature Granulocyte # (Auto) 0.03 K/uL (0.00-0.02) Anion Gap 5.0 mmol/L (3-11) Est Creatinine Clear Calc Drug Dose 98.8 ml/min Estimated GFR () 105.1 Estimated GFR (Non- 90.7 BUN/Creatinine Ratio 11.9 (10-20) Calcium Level 9.3 mg/dl (8.5-10.1) Laboratory results per my review. Medications Administered Medications (Trade) Dose Ordered Sig/Tamra Route Start Time Stop Time Status Last Admin Dose Admin Ketorolac Tromethamine (Toradol Inj) 30 mg NOW STAT IV 10/14/16 02:52 10/14/16 02:53 DC 10/14/16 03:02 30 MG Sodium Chloride 1,000 ml @ 999 mls/hr Q1H1M STAT IV 10/14/16 02:52 10/14/16 03:52 DC 10/14/16 03:02 999 MLS/HR Procedure Medications ordered: Sodium Chloride 1,000 ml @ 999 mls/hr IV, Toradol Inj 30 mg IV. ED Course 0246: Past medical records reviewed. The patient was evaluated in room A10. A complete history and physical exam was performed. An IV lock was initiated and labs were drawn as above. 0252: Sodium Chloride 1,000 ml @ 999 mls/hr IV, Toradol Inj 30 mg IV. 0350: The patient had 32 ml of urine on bladder scan. I reviewed her records and she has had 7 CT scans of the abdomen and pelvis in the past 3 years therefore I do not think additional radiation is appropriate. Patient will go to ultrasound. 0358: I informed patient on plan for ultrasound. She is going there now. She has had no relief of her pain from the Toradol 0446: The patient is back from ultrasound and is in pain. I ordered the patient to have IV Dilaudid but when the nurse went to administer it, the patient was asleep and her pain had subsided. 0512: I reevaluated the patient and she is pain free. She states she urinated and the pain subsided. 0534: Upon reevaluation, the patient is hemodynamically stable. I discussed findings and results with her. She verbalized agreement of the treatment plan. She was discharged home. Medical Decision The patient is a 26 year old female who presents to the ED with right sided flank pain. Differential diagnosis includes cystitis, pyelonephritis, ureteral colic, obstructive uropathy, appendicitis, ovarian torsion. Lab findings showed: white blood cell count 15.8, no significant left shift, stable H&H, normal renal function and glucose, urine negative. Urine analysis showed 1+ protein, trace ketones, 2+ blood, 5-10 red blood cells, greater than 30 epithelial cells, large amount of calcium oxalate crystals. Ultrasound shows evidence of a 3 mm right-sided stone at the UVJ. Upon returning from ultrasound, the patient urinated and the pain seemed to subside. The patient has a slightly passed the stone into her bladder. The patient has never had follow-up with urology before with regards to these stones. I've given her information for follow-up with Dr. Nelson. She was encouraged to use NSAIDs for pain and return to the emergency department for worsening symptoms. Medication Reconcilliation Current Medication List: was personally reviewed by me Blood Pressure Screening Patient's blood pressure: Elevated blood pressure Blood pressure disposition: Elevated BP felt to be situational Impression Primary Impression: Ureteral colic Scribe Attestation The scribe's documentation has been prepared under my direction and personally reviewed by me in its entirety. I confirm that the note above accurately reflects all work, treatment, procedures, and medical decision making performed by me. Departure Information Dispostion Home / Self-Care Prescriptions No Active Prescriptions or Reported Meds Referrals No Doctor, Assigned (PCP) Forms HOME CARE DOCUMENTATION FORM, IMPORTANT VISIT INFORMATION Patient Instructions Kidney Stones - [facility], [facility] Additional Instructions Rest. Take plenty of clear liquids Ibuprofen for pain Follow up with Urology Return to the ER for fevers or worsening pain
[2016-10-14 03:00] LABS: HEMATOCRIT 44.9 % (37-47); MEAN CELL VOLUME 89.4 fL (80-100); MEAN CORPUSCULAR HEMOGLOBIN 30.3 pg (25-34); MEAN CORPUSCULAR HGB CONC 33.9 g/dl (32-36); MEAN PLATELET VOLUME 10.4 fL (7.4-10.4); PLATELET COUNT 270 K/uL (130-400); RED BLOOD COUNT 5.02 M/uL (4.2-5.4); WHITE BLOOD COUNT 15.82 K/uL (4.8-10.8)
[2016-10-14 03:12] LABS: MANUAL MICROSCOPIC REQUIRED? YES; URINE APPEARANCE CLOUDY (CLEAR); URINE BILIRUBIN NEG (NEG); URINE COLOR YELLOW; URINE NITRITE NEG (NEG); URINE PH 5.5 (4.5-7.5); URINE SPECIFIC GRAVITY >= 1.030 (1.000-1.030); UROBILINOGEN NEG (NEG)
[2016-10-14 03:16] LABS: BUN/CREATININE RATIO 11.9 (10-20); CALCIUM 9.3 mg/dl (8.5-10.1); CREATININE 0.87 mg/dl (0.60-1.20)
[2016-10-14 03:17] LABS: PREG INTERNAL NEGATIVE QC NEG CLEAR BACKGROUND; PREG INTERNAL POSITIVE QC POS CONTROL LINE; REVIEW REQ? NO
[2016-10-14 03:23] LABS: URINE MUCUS PRESENT (NONE PRSENT)
[2016-10-14 03:25] LABS: URINE BACTERIA NEG (NEG)
[2016-10-14 03:43] LABS: BASO % 0.2 %; BASO ABS # 0.03 K/uL (0-0.2); COMPLETE YES; EOS % 2.9 %; IG% 0.2 %; LYMPH % 46.8 %; LYMPH ABS # 7.41 K/uL (1.2-3.4); MONO % 6.1 %; NEUT % 43.8 %
[2016-10-14] MEDS ORDERED: HYDROmorphone INJ 2 MG/ML SYR/VIAL IV STA (04:48)
[2016-10-14 05:34] VITALS: BP 124/40; PULSE 49; TEMP 36.5; O2SAT 97
--- NOTE | 2016-10-14 06:40 | DIAGNOSTIC IMAGING REPORT ---
(RENAL)RETROPERITON COMP HISTORY: 26 years Female acute right-sided flank pain. COMPARISON: CT abdomen and pelvis 01/23/2016 TECHNIQUE: Multiple real-time sonographic images of the bilateral kidneys and urinary bladder were obtained assessing grayscale appearance and color Doppler flow. FINDINGS: The right kidney measures 11.8 x 6.1 x 5.8 cm. There is moderate right-sided hydronephrosis and hydroureter secondary to 4 mm calculus of the proximal right ureter. There is trace right perinephric fluid, likely reactive edema Left kidney measures 11.0 x 5.2 x 5.3 cm and appears unremarkable without focal mass, shadowing calculus or hydronephrosis. Urinary bladder is partially collapsed with bilateral ureteral jets are documented. There is a 3 mm echogenic echogenic focus near the right ureterovesicular junction without significant shadowing which may reflect an additional stone. IMPRESSION: 1. Moderate right-sided hydronephrosis and hydroureter secondary to 4 mm calculus of the proximal right ureter. 2. Questionable additional calculus of the distal right ureter near the UVJ measures 3 mm 3. Left kidney is within normal limits. 4. Partially collapsed bladder. The above report was generated using voice recognition software. It may contain grammatical, syntax or spelling errors. Electronically signed by: Jermain Heredia M.D. 10/14/2016 6:39 AM Dictated Date/Time: 10/14/2016 6:33 AM
== END 2016-10-14 05:34 | disposition home or self-care (01) ==
LOC: C.EDB 02:35 → C.EDA 05:34
DX: N23 Unspecified renal colic (principal); N20.1 Calculus of ureter; Z87.440 Personal history of urinary (tract) infections; Z87.442 Personal history of urinary calculi; J45.909 Unspecified asthma, uncomplicated; F90.9 Attention-deficit hyperactivity disorder, unspecified type; F31.9 Bipolar disorder, unspecified; F12.10 Cannabis abuse, uncomplicated; K21.9 Gastro-esophageal reflux disease without esophagitis; F17.210 Nicotine dependence, cigarettes, uncomplicated; Z90.49 Acquired absence of other specified parts of digestive tract; Z82.5 Family history of asthma and other chronic lower respiratory diseases; Z83.3 Family history of diabetes mellitus; Z84.1 Family history of disorders of kidney and ureter; Z82.49 Family history of ischemic heart disease and other diseases of the circulatory system; Z82.3 Family history of stroke

== ENCOUNTER 2017-02-06 16:44 | Emergency (ER) | payer SELFPAY ==
[~2017-02-06] VITALS: Ht 162.6 cm; Wt 83.5 kg
[2017-02-06 16:46] VITALS: TEMP 36.2; Ht 162.6 cm; Wt 83.5 kg
[2017-02-06] MEDS ORDERED: ONDANSETRON INJ 2 MG/ML 2 ML VIAL IV STA (17:01)
[2017-02-06] MEDS ORDERED: HYDROmorphone INJ 1 MG/ML SYR IV STA (17:01)
--- NOTE | 2017-02-06 17:09 | EMERGENCY ROOM VISIT NOTE ---
History First contact with patient: 16:48 Chief Complaint: BACK PAIN Stated Complaint: LOW BACK PAIN/KIDNEY History of Present Illness The patient is a 26 year old female who presents to the Emergency Room with complaints of right flank pain. The patient states she had a sudden onset of pain in the right flank with radiation to the groin this morning. She has a history of kidney stones and states this feels similar. She reports difficulty urinating and denies any other urinary symptoms. She does not have a urologist because she currently does not have insurance. She rates her discomfort an 8/ 10. Nothing makes pain better or worse. She denies any associated nausea/ vomiting, fevers/chills or changes in bowel movements. Review of Systems A complete 10 point review of systems was reviewed with the patient with pertinent positives and negatives as per history of present illness. All else were negative. Past Medical/Surgical History Medical Problems: (1) ASTHMA, UNSPECIFIED (2) ATTN DEFICIT W HYPERACT (3) BIPOLAR DISORDER, UNSPECIFIED (4) Borderline personality disorder (5) Cannabis abuse (6) Chronic abdominal pain (7) Depressive disorder (8) Gallstone (9) GERD (gastroesophageal reflux disease) (10) Hypokalemia (11) Migraine (12) Ovarian cyst (13) Palpitations (14) Pelvic pain (15) Tobacco abuse (16) TOBACCO USE DISORDER Surgical Problems: (1) History of cholecystectomy (2) S/p pin of distal finger fracture Family History Asthma MOTHER Blood clots MATERNAL GRANDMOTHER Diabetes mellitus FH: cancer MATERNAL GRANDMOTHER (lung CA) FH: heart disease MATERNAL GRANDMOTHER MATERNAL GRANDFATHER FH: lung disease Gallbladder disease Hypertension MATERNAL GRANDMOTHER Kidney disease Kidney stones Stroke MATERNAL GRANDFATHER Social History Smoking Status: Current Every Day Smoker Alcohol Use: none Drug Use: none Marital Status: in relationship Housing Status: other Occupation Status: employed Current/Historical Medications No Active Prescriptions or Reported Meds Physical Exam Vital Signs Date Time Temp Pulse Resp B/P (MAP) Pulse Ox O2 Delivery O2 Flow Rate FiO2 02/06/17 20:57 80 20 138/79 98 02/06/17 19:43 83 20 124/81 98 Room Air 02/06/17 18:47 87 15 95/48 99 02/06/17 18:33 80 90/43 97 Room Air 02/06/17 17:33 66 125/74 99 Room Air 02/06/17 16:46 36.2 88 18 127/84 99 Room Air Physical Exam VITALS: Vitals are noted on the nurse's note and reviewed by myself. Vital signs stable. GENERAL: This is a 18-year-old female, uncomfortable appearing, well-developed well-nourished. HEART: Regular rate and rhythm without murmurs gallops or rubs. LUNGS: Clear to auscultation bilaterally without wheezes, rales or rhonchi. ABDOMEN: Positive bowel sounds x 4. Soft, mild tenderness to palpation in the right lower quadrant. Bilateral CVA tenderness. No guarding or rebound tenderness. NEURO: Patient was alert and oriented to person place and time. Medical Decision & Procedures ER Provider Diagnostic Interpretation: (RENAL)RETROPERITON COMP HISTORY: 26 years-old Female Right flank pain, hx stones acute right-sided flank pain with history of nephrolithiasis COMPARISON: Renal ultrasound 10/14/2016, CT 01/23/2016 TECHNIQUE: Multiple real-time sonographic images of the bilateral kidneys and urinary bladder were obtained assessing grayscale appearance and color flow FINDINGS: The right kidney measures up to 10.9 cm in length and is unremarkable without definite renal calculi or hydronephrosis. Cortical medullary differentiation is preserved without focal mass. Left kidney measures up to 11.1 cm in length and is unremarkable without renal calculi or hydronephrosis. Cortical medullary differentiation is preserved. Urinary bladder is unremarkable with bilateral ureteral jets documented. Incidental note is made of a cystic structure near the left adnexum measuring up to 5.2 cm suggesting ovarian cyst. Mildly increased echogenicity of the liver may reflect fatty infiltration. IMPRESSION: 1. Unremarkable sonographic appearance of the kidneys and urinary bladder. No renal calculi or hydronephrosis identified. 2. Incidental note is made of a 5.2 cm cystic structure of the left adnexum suggesting an ovarian cyst. Laboratory Results 02/06/17 17:15 Red Blood Count 4.65, Mean Corpuscular Volume 90.5, Mean Corpuscular Hemoglobin 30.8, Mean Corpuscular Hemoglobin Concent 34.0, Mean Platelet Volume 10.0 02/06/17 17:15 Test 02/06/17 17:15 02/06/17 17:20 White Blood Count 12.86 K/uL (4.8-10.8) Red Blood Count 4.65 M/uL (4.2-5.4) Hemoglobin 14.3 g/dL (12.0-16.0) Hematocrit 42.1 % (37-47) Mean Corpuscular Volume 90.5 fL (80-100) Mean Corpuscular Hemoglobin 30.8 pg (25-34) Mean Corpuscular Hemoglobin Concent 34.0 g/dl (32-36) Platelet Count 270 K/uL (130-400) Mean Platelet Volume 10.0 fL (7.4-10.4) RDW Standard Deviation 43.1 fL (36.4-46.3) RDW Coefficient of Variation 13.1 % (11.5-14.5) Neutrophils % (Manual) 52.2 % Lymphocytes % (Manual) 31.0 % Variant Lymphocytes % (manual) 13.3 % Eosinophils % (Manual) 3.5 % Neutrophils # (Manual) 6.71 K/uL (1.4-6.5) Total Absolute Neutrophils 6.71 K/uL (1.4-6.5) Lymphocytes # (Manual) 3.99 K/uL (1.2-3.4) Absolute Variant Lymphocytes 1.71 K/uL Total Absolute Lymphocytes 5.70 K/uL (1.2-3.4) Eosinophils # (Manual) 0.45 K/uL (0-0.5) Anion Gap 7.0 mmol/L (3-11) Est Creatinine Clear Calc Drug Dose 109.5 ml/min Estimated GFR () 116.3 Estimated GFR (Non- 100.3 BUN/Creatinine Ratio 12.9 (10-20) Calcium Level 8.7 mg/dl (8.5-10.1) Total Bilirubin 0.3 mg/dl (0.2-1) Aspartate Amino Transf (AST/SGOT) 27 U/L (15-37) Alanine Aminotransferase (ALT/SGPT) 32 U/L (12-78) Alkaline Phosphatase 100 U/L (45-117) Total Protein 7.6 gm/dl (6.4-8.2) Albumin 3.7 gm/dl (3.4-5.0) Globulin 3.9 gm/dl (2.5-4.0) Albumin/Globulin Ratio 0.9 (0.9-2) Lipase 223 U/L (73-393) Urine Color YELLOW Urine Appearance CLEAR (CLEAR) Urine pH 6.0 (4.5-7.5) Urine Specific [place] 1.020 (1.000-1.030) Urine Protein NEG (NEG) Urine Glucose (UA) NEG (NEG) Urine Ketones NEG (NEG) Urine Occult Blood NEG (NEG) Urine Nitrite NEG (NEG) Urine Bilirubin NEG (NEG) Urine Urobilinogen NEG (NEG) Urine Leukocyte Esterase NEG (NEG) Urine Test NEG (NEG) Medications Administered Medications (Trade) Dose Ordered Sig/Tamra Route Start Time Stop Time Status Last Admin Dose Admin Hydromorphone HCl (Dilaudid Inj) 1 mg NOW STAT IV 02/06/17 17:01 02/06/17 17:03 DC 02/06/17 17:17 1 MG Ondansetron HCl (Zofran Inj) 4 mg NOW STAT IV 02/06/17 17:01 02/06/17 17:03 DC 02/06/17 17:17 4 MG Sodium Chloride 1,000 ml @ 999 mls/hr Q1H1M STAT IV 02/06/17 18:42 02/06/17 19:42 DC 02/06/17 18:48 999 MLS/HR ED Course The patient was evaluated as above. Labs were drawn and IV access was obtained. Patient was medicated with 1 mg Dilaudid IV and 4 mg Zofran IV. Patient became slightly hypotensive after receiving the Dilaudid. She was given 1 L normal saline solution. Findings were discussed with the patient. I did offer her CT scan given the negative findings so far. The patient declined, stating that she would rather return home and follow-up if needed. Discharge instructions were reviewed with the patient. The patient verbalized understanding of my assessment and treatment plan and was discharged home in good condition. Medical Decision Differential diagnosis includes kidney stone, pyelonephritis, pancreatitis, gastroenteritis, musculoskeletal pain, among others. The patient is a 26-year-old female who presents today complaining of right flank pain. Labs revealed a mild leukocytosis, possibly secondary to stress and pain. There were no concerning electrolyte abnormalities. LFTs were within normal limits. Creatinine was within normal limits. Urinalysis was not suggestive of infection. Urine test was negative. There is no blood in the urine. Renal ultrasound was performed and showed no renal calculus or hydronephrosis. Patient does have incidental finding of a left ovarian cyst, although this is likely not contributing to her pain. She was treated with IV Dilaudid and Zofran as well as IV fluids. She was offered CT scan but declined, stating she'll follow-up with her primary care provider this week for a recheck. She was encouraged to return here if she develops new or worsening symptoms. Based on the patient's presentation and work up, I feel the patient is stable for outpatient treatment. The patient was educated to return to the emergency department for any worsening of their current condition or new/concerning symptoms. She will follow up with her PCP. Medication Reconcilliation Current Medication List: was personally reviewed by me Blood Pressure Screening Patient's blood pressure: Normal blood pressure Impression Primary Impression: Right flank pain Departure Information Dispostion Home / Self-Care Condition GOOD Prescriptions No Active Prescriptions or Reported Meds Referrals No Doctor, Assigned (PCP) Patient Instructions My [facility] [address] Additional Instructions You have been treated in the Emergency Department your Abdominal Pain. Laboratory results and imaging studies have ruled out any emergent causes for your abdominal pain which would warrant admission or surgery. Clear liquid diet for the next 48 hours. For pain control, you can use the following [id number] medicines (if >12 yo): - Regular strength (325mg/tab) Tylenol (acetaminophen) 2 tabs every 4-6 hours as needed. Do not exceed 12 tablets in a 24 hour period. Avoid taking more than 4 grams (4000 mg) of Tylenol per day. This includes any other sources of acetaminophen you may take on a regular basis. - Regular strength (200 mg/tab) Advil (ibuprofen) 1-2 tabs every 4-6 hours as needed. Do not exceed a dose of 3200 mg per day. Drink plenty of water and stay well hydrated. As with any trip to the Emergency Department, you should follow-up with your Primary Care Provider from today's visit. Try to schedule a follow-up appointment within 2-3 days for a recheck. Return to the emergency department if your symptoms persist despite treatment plan outlined above or if the following symptoms occur: Worsening pain, fever, vomiting or other new/concerning symptoms.
[2017-02-06 17:41] LABS: URINE APPEARANCE CLEAR (CLEAR); URINE BILIRUBIN NEG (NEG); URINE COLOR YELLOW; URINE NITRITE NEG (NEG); UROBILINOGEN NEG (NEG); ZZUR CULT IF INDIC CLEAN CATCH NO
[2017-02-06 17:45] LABS: MANUAL MICROSCOPIC REQUIRED? NO; REVIEW REQ? NO
[2017-02-06 17:48] LABS: HEMATOCRIT 42.1 % (37-47); MEAN CELL VOLUME 90.5 fL (80-100); MEAN CORPUSCULAR HEMOGLOBIN 30.8 pg (25-34); PLATELET COUNT 270 K/uL (130-400); RED BLOOD COUNT 4.65 M/uL (4.2-5.4); WHITE BLOOD COUNT 12.86 K/uL (4.8-10.8)
[2017-02-06 17:52] LABS: BUN/CREATININE RATIO 12.9 (10-20); CALCIUM 8.7 mg/dl (8.5-10.1); CREATININE 0.8 mg/dl (0.60-1.20); POTASSIUM 4.3 mmol/L (3.5-5.1)
[2017-02-06 17:54] LABS: ALB/GLOB RATIO 0.9 (0.9-2)
[2017-02-06 18:20] LABS: COMPLETE YES; EOSINOPHIL % 3.5 %; LYMPH ABS # 3.99 K/uL (1.2-3.4); NEUTROPHILS % 52.2 %; VARIANT LYM ABS # 1.71 K/uL; VARIANT LYMPHOCYTE % 13.3 %
[2017-02-06] MEDS ORDERED: SODIUM CHLORIDE 0.9% 1000ML 1,000 ML IV STA (18:42)
--- NOTE | 2017-02-06 20:05 | DIAGNOSTIC IMAGING REPORT ---
(RENAL)RETROPERITON COMP HISTORY: 26 years-old Female Right flank pain, hx stones acute right-sided flank pain with history of nephrolithiasis COMPARISON: Renal ultrasound 10/14/2016, CT 01/23/2016 TECHNIQUE: Multiple real-time sonographic images of the bilateral kidneys and urinary bladder were obtained assessing grayscale appearance and color flow FINDINGS: The right kidney measures up to 10.9 cm in length and is unremarkable without definite renal calculi or hydronephrosis. Cortical medullary differentiation is preserved without focal mass. Left kidney measures up to 11.1 cm in length and is unremarkable without renal calculi or hydronephrosis. Cortical medullary differentiation is preserved. Urinary bladder is unremarkable with bilateral ureteral jets documented. Incidental note is made of a cystic structure near the left adnexum measuring up to 5.2 cm suggesting ovarian cyst. Mildly increased echogenicity of the liver may reflect fatty infiltration. IMPRESSION: 1. Unremarkable sonographic appearance of the kidneys and urinary bladder. No renal calculi or hydronephrosis identified. 2. Incidental note is made of a 5.2 cm cystic structure of the left adnexum suggesting an ovarian cyst. The above report was generated using voice recognition software. It may contain grammatical, syntax or spelling errors. Electronically signed by: Jermain Heredia M.D. 02/06/2017 8:04 PM Dictated Date/Time: 02/06/2017 8:01 PM
[2017-02-06 20:57] VITALS: BP 138/79; PULSE 80; O2SAT 98
== END 2017-02-06 20:59 | disposition home or self-care (01) ==
LOC: C.EDB 16:45 → C.EDC 20:59
DX: R10.9 Unspecified abdominal pain (principal); J45.909 Unspecified asthma, uncomplicated; F17.200 Nicotine dependence, unspecified, uncomplicated; Z90.49 Acquired absence of other specified parts of digestive tract; Z98.890 Other specified postprocedural states; Z82.5 Family history of asthma and other chronic lower respiratory diseases; Z82.49 Family history of ischemic heart disease and other diseases of the circulatory system; Z83.3 Family history of diabetes mellitus; Z80.1 Family history of malignant neoplasm of trachea, bronchus and lung; Z84.1 Family history of disorders of kidney and ureter; Z82.3 Family history of stroke

== ENCOUNTER 2017-03-19 18:43 | Emergency (ER) | payer SELFPAY ==
[~2017-03-19] VITALS: Ht 162.6 cm; Wt 87.7 kg
[2017-03-19 18:47] VITALS: BP 126/77; PULSE 97; TEMP 36.6; O2SAT 100; Ht 162.6 cm; Wt 87.7 kg
[2017-03-19] MEDS ORDERED: PENI500T2 PO (19:26)
[2017-03-19] MEDS ORDERED: HYDR-5688 PO (19:26)
[2017-03-19] MEDS ORDERED: PENICILLIN HOME PACK 500MG (4 DOSES)BTL PO ONE ×2 (19:30)
[2017-03-19] MEDS ORDERED: NORCO 5/325MG HOME PACK PO ONE (19:30)
[2017-03-19] MEDS ORDERED: CLINDAMYCIN 150MG HOME PACK PO ONE (19:30)
--- NOTE | 2017-03-19 22:59 | EMERGENCY ROOM VISIT NOTE ---
ED Visit Note First contact with patient: 18:50 CHIEF COMPLAINT: [place] tooth pain. HISTORY OF PRESENT ILLNESS: Ms. Steele is a 26-year-old white female who ambulates into the complaining ED of dental pain right mandibular wisdom teeth.. She reports Cheli day while chewing she broke tooth #32. For the last 24 hours she has been having progressive dental pain. The pain is now steady and severe and radiates to the face. She rates her discomfort 10/10. Her pain worsens with palpation of the tooth and chewing. She has not identified any alleviating factors related to the pain. She reports she is using ibuprofen without relief of her discomfort. She denies any associated symptoms including fevers, chills, sweats, skin eruptions, skin color changes, facial swelling. Additionally she feels like her nerves through is exposed because of the severity of pain and questions whether she should be on antibiotic therapy. She also reports she attempted to contact the dentist and without insurance none of the dentist she contacted would be willing to set up an appointment. REVIEW OF SYSTEMS: As noted above in History of Present Illness. PMH: Migraine headaches, asthma, bronchitis, irritable bowel syndrome, kidney stones, status post cholecystectomy and unspecified finger surgery.. CURRENT MEDICATION: Patient denies.. ALLERGIES TO MEDICATION: Mometasone, nitrofurantoin. SOCIAL HISTORY: Patient is not employed; she feels safe in her home environment ; she admits to tobacco use and denies alcohol use. PHYSICAL EXAM: Vital Signs: Date Time Temp Pulse Resp B/P (MAP) Pulse Ox O2 Delivery O2 Flow Rate FiO2 03/19/17 18:47 36.6 97 20 126/77 100 Room Air General: 26 year-old white female in moderate distress due to pain, nontoxic appearing, afebrile and hemodynamically stable. Patient is very anxious and tearful. Neurological: Awake, alert and oriented to person, place and time. Answering questions appropriately and following commands. Normal gait. Good hand eye coordination. No focal motor or sensory deficits. Skin: Warm, dry and pink. No soft tissue lesions, rashes, or trauma noted. HEENT: Atraumatic and normocephalic. No facial swelling or erythema. Oral cavity is moist and pink. Airway is patent. Tooth #32 is broken and there does appear to be some exposure of the nerve root. I do not see any local erythema or edema. The gingiva is pink and not edematous. No cervical or submandibular lymphadenopathy. ED COURSE: Patient is assessed as noted above. Patient's medication list was reviewed. Patient is educated about her findings and instructed on her treatment plan; she verbalizes understanding and agreement with this plan. CLINIC IMPRESSION: Broken tooth. DISPOSITION: Patient discharged home in stable condition; prior to departure she was reassessed and subjectively reported she was feeling the same. PLAN: Patient was prescribed Pen-Vee K 500 mg 4 times a day for 10 days. Patient was placed on a sliding pain medication scale of ibuprofen, acetaminophen and Egnar; her name was checked on the state database and no red flags were noted and she was given appropriate narcotic precautions. Patient was encouraged to keep her exposed tooth covered with dental wax. Patient is encouraged to keep her mouth clean and to avoid tobacco use. Patient was encouraged to use a liquid/mechanical soft diet at room temperature. Patient was encouraged to follow-up with dentistry; she was seen by case management and given contact information for [facility]. Patient was encouraged return ED for worsening pain, fevers, facial swelling or any new/concerning symptoms.
== END 2017-03-19 19:36 | disposition home or self-care (01) ==
LOC: C.EDB 18:45 → C.EDD 19:36
DX: S02.5XXA Fracture of tooth (traumatic), initial encounter for closed fracture (principal); X58.XXXA Exposure to other specified factors, initial encounter; J45.909 Unspecified asthma, uncomplicated; K58.9 Irritable bowel syndrome, unspecified; Z87.442 Personal history of urinary calculi; Z72.0 Tobacco use; Z90.49 Acquired absence of other specified parts of digestive tract

== ENCOUNTER 2017-06-08 08:56 | Emergency (ER) | payer SELFPAY ==
[~2017-06-08] VITALS: Ht 162.6 cm; Wt 92.7 kg
[~2017-06-08 08:56] MED LIST changes: -ASPI-390 PO; +HYDR-5688 PO; -SUMA100T16 PO
[2017-06-08 09:15] VITALS: TEMP 36.8; O2SAT 98; Ht 162.6 cm; Wt 92.7 kg
[2017-06-08 09:19] VITALS: PULSE 57
[2017-06-08] MEDS ORDERED: KETOROLAC TROMETHAMINE 30 MG/ML VIAL IV STA (09:20)
[2017-06-08 09:21] VITALS: O2SAT 98
[2017-06-08 09:43] LABS: BASO % 0.3 %; BASO ABS # 0.03 K/uL (0-0.2); EOS ABS # 0.36 K/uL (0-0.5); HEMATOCRIT 40.3 % (37-47); HEMOGLOBIN 13.8 g/dL (12.0-16.0); IG# 0.03 K/uL (0.00-0.02); LYMPH % 41.1 %; LYMPH ABS # 4.91 K/uL (1.2-3.4); MEAN CELL VOLUME 89.2 fL (80-100); MEAN CORPUSCULAR HEMOGLOBIN 30.5 pg (25-34); MEAN CORPUSCULAR HGB CONC 34.2 g/dl (32-36); MEAN PLATELET VOLUME 10.1 fL (7.4-10.4); MONO % 5.3 %; MONO ABS # 0.63 K/uL (0.11-0.59); PLATELET COUNT 234 K/uL (130-400); RED CELL DISTRIBUTION WIDTH CV 13.2 % (11.5-14.5); RED CELL DISTRIBUTION WIDTH SD 43.1 fL (36.4-46.3); WHITE BLOOD COUNT 11.96 K/uL (4.8-10.8)
--- NOTE | 2017-06-08 09:51 | DIAGNOSTIC IMAGING REPORT ---
CHEST ONE VIEW PORTABLE HISTORY: Atypical CHEST PAIN COMPARISON: Chest 07/19/2015. FINDINGS: The lungs are clear. Cardiac silhouette is normal in size. No pleural effusions. No pneumothorax. IMPRESSION: No acute process. Electronically signed by: Rigo Cancino M.D. 06/08/2017 9:50 AM Dictated Date/Time: 06/08/2017 9:49 AM
--- NOTE | 2017-06-08 09:56 | EMERGENCY ROOM VISIT NOTE ---
History Report prepared by Ananya: Scarlett Marcos Under the Supervision of: Dr. Nabil Joseph M.D. First contact with patient: 08:59 Chief Complaint: CHEST PAIN Stated Complaint: CHEST PAIN History of Present Illness The patient is a 27 year old female who presents to the Emergency Room with complaints of waxing and waning chest pain beginning last night. She ate breakfast this morning on her way to work and states that eating made her pain worse. Exertion, palpation, and moving her arms exacerbate the patient's chest pain. Relaxing helps to alleviate her pain slightly. The patient rates her pain as a 7/10 in severity. She reports recently doing some heavy lifting at work. She does have a family history of heart disease. The patient has never had a stress test in the past. She denies any nausea or vomiting. Source of History: patient Onset: last night Position: chest Symptom Intensity: 7/10 Timing: waxes/wanes Modifying Factors (Worsening): exertion, eating, movement, other (palpation) Modifying Factors (Relieving): rest Associated Symptoms: No nausea, No vomiting Review of Systems See HPI for pertinent positives & negatives. A total of 10 systems reviewed and were otherwise negative. Past Medical & Surgical Medical Problems: (1) ASTHMA, UNSPECIFIED (2) ATTN DEFICIT W HYPERACT (3) BIPOLAR DISORDER, UNSPECIFIED (4) Borderline personality disorder (5) Cannabis abuse (6) Chronic abdominal pain (7) Depressive disorder (8) Gallstone (9) GERD (gastroesophageal reflux disease) (10) Hypokalemia (11) Migraine (12) Ovarian cyst (13) Palpitations (14) Pelvic pain (15) Tobacco abuse (16) TOBACCO USE DISORDER Surgical Problems: (1) History of cholecystectomy (2) S/p pin of distal finger fracture Family History Asthma MOTHER Blood clots MATERNAL GRANDMOTHER Diabetes mellitus FH: cancer MATERNAL GRANDMOTHER (lung CA) FH: heart disease MATERNAL GRANDMOTHER MATERNAL GRANDFATHER FH: lung disease Gallbladder disease Hypertension MATERNAL GRANDMOTHER Kidney disease Kidney stones Stroke MATERNAL GRANDFATHER Social History Smoking Status: Current Every Day Smoker Alcohol Use: none Drug Use: none Marital Status: in relationship Housing Status: other Occupation Status: employed Current/Historical Medications No Active Prescriptions or Reported Meds Allergies Coded Allergies: Nitrofurantoin (Verified Allergy, Severe, ANAPHYLAXIS, 02/06/17) Mometasone (Verified Adverse Reaction, Severe, migraines, 02/06/17) Physical Exam Vital Signs Date Time Temp Pulse Resp B/P (MAP) Pulse Ox O2 Delivery O2 Flow Rate FiO2 06/08/17 10:36 122/62 06/08/17 09:21 98 Room Air 06/08/17 09:19 57 06/08/17 09:15 36.8 70 18 114/49 98 Room Air Physical Exam GENERAL: Awake, alert, well-appearing, in no acute distress HENT: Normocephalic, atraumatic. Oropharynx unremarkable. EYES: Normal conjunctiva. Sclera non-icteric. NECK: Supple. No nuchal rigidity. FROM. No JVD. RESPIRATORY: Clear to auscultation. CARDIAC: Regular rate, normal rhythm. Extremities warm and well perfused. Pulses equal. ABDOMEN: Soft, non-distended. No tenderness to palpation. No rebound or guarding. No masses. RECTAL: Deferred. MUSCULOSKELETAL: Tender to palpation of chest wall, hurts to move left arm. The back is symmetrical on inspection without obvious abnormality. There is no CVA tenderness to palpation. No joint edema. LOWER EXTREMITIES: Calves are equal size bilaterally and non-tender. No edema. No discoloration. NEURO: Normal sensorium. No sensory or motor deficits noted. SKIN: No rash or jaundice noted. Medical Decision & Procedures ER Provider Diagnostic Interpretation: Radiology results as stated below per my review and radiologist interpretation: CHEST ONE VIEW PORTABLE HISTORY: Atypical CHEST PAIN COMPARISON: Chest 07/19/2015. FINDINGS: The lungs are clear. Cardiac silhouette is normal in size. No pleural effusions. No pneumothorax. IMPRESSION: No acute process. Electronically signed by: Rigo Cancino M.D. 06/08/2017 9:50 AM Dictated Date/Time: 06/08/2017 9:49 AM Laboratory Results 06/08/17 09:30 Red Blood Count 4.52, Mean Corpuscular Volume 89.2, Mean Corpuscular Hemoglobin 30.5, Mean Corpuscular Hemoglobin Concent 34.2, Mean Platelet Volume 10.1, Neutrophils (%) (Auto) 50.0, Lymphocytes (%) (Auto) 41.1, Monocytes (%) (Auto) 5.3, Eosinophils (%) (Auto) 3.0, Basophils (%) (Auto) 0.3, Neutrophils # (Auto) 6.00, Lymphocytes # (Auto) 4.91, Monocytes # (Auto) 0.63, Eosinophils # (Auto) 0.36, Basophils # (Auto) 0.03 06/08/17 09:30 Test 06/08/17 09:30 White Blood Count 11.96 K/uL (4.8-10.8) Red Blood Count 4.52 M/uL (4.2-5.4) Hemoglobin 13.8 g/dL (12.0-16.0) Hematocrit 40.3 % (37-47) Mean Corpuscular Volume 89.2 fL (80-100) Mean Corpuscular Hemoglobin 30.5 pg (25-34) Mean Corpuscular Hemoglobin Concent 34.2 g/dl (32-36) Platelet Count 234 K/uL (130-400) Mean Platelet Volume 10.1 fL (7.4-10.4) Neutrophils (%) (Auto) 50.0 % Lymphocytes (%) (Auto) 41.1 % Monocytes (%) (Auto) 5.3 % Eosinophils (%) (Auto) 3.0 % Basophils (%) (Auto) 0.3 % Neutrophils # (Auto) 6.00 K/uL (1.4-6.5) Lymphocytes # (Auto) 4.91 K/uL (1.2-3.4) Monocytes # (Auto) 0.63 K/uL (0.11-0.59) Eosinophils # (Auto) 0.36 K/uL (0-0.5) Basophils # (Auto) 0.03 K/uL (0-0.2) RDW Standard Deviation 43.1 fL (36.4-46.3) RDW Coefficient of Variation 13.2 % (11.5-14.5) Immature Granulocyte % (Auto) 0.3 % Immature Granulocyte # (Auto) 0.03 K/uL (0.00-0.02) Anion Gap 5.0 mmol/L (3-11) Est Creatinine Clear Calc Drug Dose 127.3 ml/min Estimated GFR () 131.2 Estimated GFR (Non- 113.2 BUN/Creatinine Ratio 17.2 (10-20) Calcium Level 8.8 mg/dl (8.5-10.1) Total Bilirubin 0.3 mg/dl (0.2-1) Direct Bilirubin < 0.1 mg/dl (0-0.2) Aspartate Amino Transf (AST/SGOT) 17 U/L (15-37) Alanine Aminotransferase (ALT/SGPT) 13 U/L (12-78) Alkaline Phosphatase 89 U/L (45-117) Total Creatine Kinase 119 U/L (26-192) Creatine Kinase MB 1.5 ng/ml (0.5-3.6) Creatine Kinase MB Ratio 1.3 (0-3.0) Troponin I < 0.015 ng/ml (0-0.045) Total Protein 7.1 gm/dl (6.4-8.2) Albumin 3.6 gm/dl (3.4-5.0) Lipase 142 U/L (73-393) Labs reviewed by ED physician. Medications Administered Medications (Trade) Dose Ordered Sig/Tamra Route Start Time Stop Time Status Last Admin Dose Admin Ketorolac Tromethamine (Toradol Inj) 30 mg NOW STAT IV 06/08/17 09:20 06/08/17 09:21 DC 06/08/17 09:41 30 MG ECG Per My Interpretation Indication: chest pain Rate (beats per minute): 62 Rhythm: normal sinus Findings: no acute ischemic change, other (no ST elevation; no ST depression) ED Course 0859: Past medical records reviewed. The patient was evaluated in room B9. A complete history and physical examination was performed. 0920: Toradol 30 mg IV 1021: I reassessed the patient at this time. She is feeling better and resting comfortably. I discussed the results and treatment plan with the patient. I answered all pertaining questions that she had. She expressed understanding and verbalized agreement. The patient will be discharged home. Medical Decision Differential diagnosis: Etiologies such as cardiac ischemia, aortic dissection, pulmonary embolism, pneumonia, pneumothorax, musculoskeletal, infections, pericarditis, myocarditis , esophageal rupture, gastrointestinal, as well as others were entertained. This is a 27-year-old female presents emergency department complaining of chest pain. I will note that the patient's pain is easily reproducible on examination and she reports it started after lifting heavy equipment several days ago at work. She was given Toradol in the emergency department. Repeat examination revealed improvement in the patient's symptoms as the patient was sleeping. She has a normal EKG and no elevation in her troponin. As the pain is reproducible I strongly suspect this is costochondritis. I stressed the need for follow-up with the patient's primary care physician. Patient was in agreement with the treatment plan. Medication Reconcilliation Current Medication List: was personally reviewed by me Blood Pressure Screening Patient's blood pressure: Normal blood pressure Impression Primary Impression: Chest wall pain Scribe Attestation The scribe's documentation has been prepared under my direction and personally reviewed by me in its entirety. I confirm that the note above accurately reflects all work, treatment, procedures, and medical decision making performed by me. Departure Information Dispostion Home / Self-Care Prescriptions No Active Prescriptions or Reported Meds Referrals No Doctor, Assigned (PCP) Forms HOME CARE DOCUMENTATION FORM, IMPORTANT VISIT INFORMATION Patient Instructions ED Chest Pain Costochondritis, My [facility] Additional Instructions Follow up with Dr Franklin's office You have been examined and treated today on an emergency basis only. This is not a substitute for, or an effort to provide, complete comprehensive medical care. It is impossible to recognize and treat all injuries or illnesses in a single emergency department visit. It is therefore important that you follow up closely with your PCP. Call as soon as possible for an appointment. Thank you for your time and consideration. I look forward to speaking with you again soon. Please don't hesitate to call us if you have any questions.
[2017-06-08 10:11] LABS: ALBUMIN 3.6 gm/dl (3.4-5.0); ALT/SGPT 13 U/L (12-78); BLOOD UREA NITROGEN 12 mg/dl (7-18); CALCIUM 8.8 mg/dl (8.5-10.1); CARBON DIOXIDE 25 mmol/L (21-32); CREATININE 0.72 mg/dl (0.60-1.20); GLUCOSE 95 mg/dl (70-99); LIPASE 142 U/L (73-393); POTASSIUM 3.9 mmol/L (3.5-5.1); SODIUM 136 mmol/L (136-145)
[2017-06-08 10:17] LABS: ALKALINE PHOSPHATASE 89 U/L (45-117); AST/SGOT 17 U/L (15-37); CKMB 1.5 ng/ml (0.5-3.6); TOTAL PROTEIN 7.1 gm/dl (6.4-8.2)
[2017-06-08 10:36] VITALS: BP 122/62
== END 2017-06-08 11:08 | disposition home or self-care (01) ==
LOC: EDBD 08:56 → C.EDB 08:57
DX: R07.89 Other chest pain (principal); J45.909 Unspecified asthma, uncomplicated; F17.200 Nicotine dependence, unspecified, uncomplicated; Z90.89 Acquired absence of other organs; Z98.890 Other specified postprocedural states; Z82.5 Family history of asthma and other chronic lower respiratory diseases; Z82.49 Family history of ischemic heart disease and other diseases of the circulatory system; Z83.3 Family history of diabetes mellitus; Z80.1 Family history of malignant neoplasm of trachea, bronchus and lung; Z84.1 Family history of disorders of kidney and ureter; Z82.3 Family history of stroke

== ENCOUNTER 2017-06-14 13:25 | Emergency (ER) | payer OTHER ==
[~2017-06-14] VITALS: Ht 165.1 cm; Wt 94.4 kg
[2017-06-14 13:31] VITALS: TEMP 36.6; Ht 165.1 cm; Wt 94.4 kg
[2017-06-14] MEDS ORDERED: CYCLOBENZAPRINE HCL 10 MG TAB PO STA (14:00)
[2017-06-14] MEDS ORDERED: KETOROLAC TROMETHAMINE 60 MG/2 ML VIAL IM STA (14:00)
--- NOTE | 2017-06-14 14:52 | DIAGNOSTIC IMAGING REPORT ---
THORACIC SPINE 3 VIEWS ROUTINE, L-SPINE MIN 4 VIEWS ROUTINE HISTORY: 27 years-old Female back pain s/p fall acute back pain status post fall COMPARISON: CTA of the chest 03/28/2016 TECHNIQUE: 4 views of the thoracic spine and 6 views of the lumbar spine FINDINGS: THORACIC: Minimal multilevel endplate spurring about the thoracic spine. No acute fracture or subluxation identified. No significant intervertebral disc space narrowing. The upper thoracic segments are somewhat subvisualized secondary to patient's shoulders. Imaged lung thompson appear clear. No opaque foreign body. LUMBAR: 5 nonrib-bearing lumbar type vertebral segments. No spondylolysis or spondylolisthesis. No acute fracture or subluxation. No significant degenerative changes. Cholecystectomy clips noted. IMPRESSION: No acute fracture or subluxation. The above report was generated using voice recognition software. It may contain grammatical, syntax or spelling errors. Electronically signed by: Jermain Heredia M.D. 06/14/2017 2:51 PM Dictated Date/Time: 06/14/2017 2:48 PM
[2017-06-14] MEDS ORDERED: CYCL5TAB PO (15:07)
[2017-06-14] MEDS ORDERED: METH4PAK PO (15:07)
--- NOTE | 2017-06-14 15:07 | EMERGENCY ROOM VISIT NOTE ---
ED Visit Note First contact with patient: 13:51 CHIEF COMPLAINT: Low back pain HISTORY OF PRESENT ILLNESS: This 27-year-old female patient presents to the emergency department, ambulatory, complaining of pain in the mid to low back which began approximately 4 hours prior to arrival. The patient states she slipped on ice/oil at work, and landed on her back on a concrete floor. The incident occurred approximately 1030. 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 The pain was gradual in onset, is now constant and worse with movement. The patient notes the pain as sharp and a 9/10. The patient has taken ibuprofen and tried using a back brace without significant relief of the pain. The patient denies any loss of control of their bowel or bladder functions. There has been no leg numbness or weakness. She does report paresthesias going down the posterior aspect of the right leg. No nausea or vomiting or abdominal pain. No chest pain or shortness of breath. The patient has not had prior back injuries. No dysuria or increased urinary frequency. REVIEW OF SYSTEMS: A 10 system review of systems was performed with positives and pertinent negatives listed in the history of present illness. All other systems were reviewed and are negative. ALLERGIES: Macrobid, mometasone MEDICATIONS: None PMH: Migraines SOCIAL HISTORY: The patient lives locally with family. She denies drug, alcohol use. She admits to smoking one half pack of cigarettes per day. PHYSICAL EXAM: VITALS: Vitals are noted on the nurse's note and reviewed by myself. Vital signs stable. GENERAL: This is a 27-year-old white female, in no acute distress, nondiaphoretic, well-developed well-nourished. SKIN: The skin was without rashes, erythema, edema, or bruising. Capillary refill less than 2 seconds. NECK: Supple without nuchal rigidity. No cervical spine tenderness. No paraspinous muscle tenderness. HEART: Regular rate and rhythm without murmurs gallops or rubs. LUNGS: Clear to auscultation bilaterally without wheezes, rales or rhonchi. ABDOMEN: Positive bowel sounds x 4. Normal tympanic percussion. Soft, nontender, without masses or organomegaly. Torres sign negative. MUSCULOSKELETAL: No muscle atrophy, erythema, or edema noted of the back. There is moderate tenderness over the lumbar spinous processes. There is moderate tenderness over the paraspinous muscles bilaterally. There is moderate tenderness over the thoracic spine and paraspinous muscles. There are muscle spasms present. The patient is slow to move around with maximum tenderness with position changes. Positive bilateral straight leg raise test. NEURO: Patient was alert and oriented to person place and time. Normal sensation to light and sharp touch. Deep tendon reflexes 2+ in the lower extremities. Dorsalis pedis pulse 2+ bilaterally. Strength 5/5 and equal in the bilateral lower extremities. RADIOLOGY: THORACIC SPINE 3 VIEWS ROUTINE, L-SPINE MIN 4 VIEWS ROUTINE HISTORY: 27 years-old Female back pain s/p fall acute back pain status post fall COMPARISON: CTA of the chest 03/28/2016 TECHNIQUE: 4 views of the thoracic spine and 6 views of the lumbar spine FINDINGS: THORACIC: Minimal multilevel endplate spurring about the thoracic spine. No acute fracture or subluxation identified. No significant intervertebral disc space narrowing. The upper thoracic segments are somewhat subvisualized secondary to patient's shoulders. Imaged lung thompson appear clear. No opaque foreign body. LUMBAR: 5 nonrib-bearing lumbar type vertebral segments. No spondylolysis or spondylolisthesis. No acute fracture or subluxation. No significant degenerative changes. Cholecystectomy clips noted. IMPRESSION: No acute fracture or subluxation. The above report was generated using voice recognition software. It may contain grammatical, syntax or spelling errors. Electronically signed by: Jermain Heredia M.D. 06/14/2017 2:51 PM Dictated Date/Time: 06/14/2017 2:48 PM EMERGENCY DEPARTMENT COURSE: The patient was seen and evaluated as above. X- rays of the thoracic and lumbar spine were performed and reviewed by myself as above. The patient was given 60 mg Toradol IM and 10 mg Flexeril as above. The patient did report mild to moderate improvement in her symptoms. I discussed proper outpatient management of back pain, and recommended steroids and muscle relaxers. The patient was agreeable to this treatment plan. She does have an appointment scheduled with her primary care provider for tomorrow morning, so I did encourage her to go to this follow-up for a recheck. All questions were answered to patient's satisfaction. Discharge instructions reviewed, the patient was discharged home in good condition. I attest that I have personally reviewed the patient's current medication list. Blood Pressure Screening: Patient was found to have a slightly elevated blood pressure due to circumstances. I do not believe that the patient requires hypertension monitoring. Etiologies such as lumbago, sciatica, cauda equina, epidural abscess, osteomyelitis, fracture, aortic disease, metastatic disease, infection, renal colic, gastrointestinal, as well as others were entertained. DIAGNOSIS: lumbar strain, thoracic back pain, fall Problem List Medical Problems: (1) ASTHMA, UNSPECIFIED Status: Chronic (2) ATTN DEFICIT W HYPERACT Status: Chronic (3) BIPOLAR DISORDER, UNSPECIFIED Status: Chronic (4) Borderline personality disorder Status: Chronic (5) Chronic abdominal pain Status: Chronic (6) Depressive disorder Status: Chronic (7) Gallstone Status: Resolved (8) GERD (gastroesophageal reflux disease) Status: Chronic (9) Migraine Status: Chronic (10) Ovarian cyst Status: Resolved (11) Tobacco abuse Status: Chronic (12) TOBACCO USE DISORDER Status: Chronic Surgical Problems: (1) History of cholecystectomy Status: Chronic (2) S/p pin of distal finger fracture Status: Chronic Current/Historical Medications Scheduled Cyclobenzaprine Hcl (Flexeril), 5-10 MG PO TID Methylprednisolone (Medrol Dosepak), 0 PO DAILY Allergies Coded Allergies: Nitrofurantoin (Verified Allergy, Severe, ANAPHYLAXIS, 06/14/17) Mometasone (Verified Adverse Reaction, Severe, migraines, 06/14/17) Vital Signs Date Time Temp Pulse Resp B/P (MAP) Pulse Ox O2 Delivery O2 Flow Rate FiO2 06/14/17 15:10 80 16 135/77 98 06/14/17 13:31 36.6 92 18 140/82 97 Room Air Medications Administered Medications (Trade) Dose Ordered Sig/Tamra Route Start Time Stop Time Status Last Admin Dose Admin Ketorolac Tromethamine (Toradol Inj) 60 mg NOW STAT IM 06/14/17 14:00 06/14/17 14:02 DC 06/14/17 14:11 60 MG Cyclobenzaprine HCl (Flexeril Tab) 10 mg NOW STAT PO 06/14/17 14:00 06/14/17 14:02 DC 06/14/17 14:11 10 MG Departure Information Impression Primary Impression: Strain of lumbar region Additional Impressions: Thoracic back pain Fall Work place accident Dispostion Home / Self-Care Condition GOOD Prescriptions Methylprednisolone (MEDROL DOSEPAK) 4 Mg Danny 0 PO DAILY, #1 PKT Prov: Leonila Díaz PA-C 06/14/17 Cyclobenzaprine Hcl (FLEXERIL) 5 Mg Tab 5-10 MG PO TID, #15 TAB PRN Prov: Leonila Díaz PA-C 06/14/17 Referrals No Doctor, Assigned (PCP) Patient Instructions ED Low Back Pain Injury, My [facility] Additional Instructions You have been treated in the Emergency Department for Back Pain. You have received pain medicine in the emergency department which impairs your ability to operate a vehicle. It is illegal for you to drive after receiving these medicines. You have been prescribed Flexeril (cyclobenzaprine) 1-2 tabs orally, three times per day. Do NOT exceed 30 mg (6 tabs) per day. Take your first dose at bedtime as it can make you drowsy. Always take all medications as prescribed. You have been prescribed a Medrol Dosepak. This is a steroid which will help decrease your inflammation, redness, and itch. Take the medicine as prescribed. Take the ENTIRE 6 day course of the steroids. No NSAIDs while on steroids. For pain control, you can use the following rizh-bog-jgnkwnz medicines (if >12 yo): Ibuprofen(Motrin, Advil) may be used for fever or pain. Use 600mg every six hours as needed. Take with food. Avoid using more than 2400mg in a 24 hour period. Do not use 2400mg per day for more than three consecutive days without physician direction. Prolonged inappropriate use can lead to stomach upset or ulcers. No NSAIDs while on steroids. (AND/OR) Acetaminophen(Tylenol) may be used for fever or pain. Use 1000mg every six hours as needed. Avoid using more than 3000mg in a 24 hour period. If this is an acute injury, ice can be applied to the area of pain for the first 3 days to help decrease pain and inflammation. After the first 3 days, a heating pad can be used over the area for continued soothing relief. You should schedule a follow-up appointment in 2-3 days with your Primary Care Provider for further evaluation and treatment of your back pain. Return to the Emergency Department if your current symptoms worsen despite treatment course outlined above, or if you develop any of the following symptoms : intractable pain despite aforementioned treatment course, loss of control of your bowel or bladder, numbness or tingling in your groin, or development of a fever. Problem Qualifiers Primary Impression: Strain of lumbar region Encounter type: initial encounter Qualified Codes: S39.012A - Strain of muscle, fascia and tendon of lower back, initial encounter Additional Impressions: Thoracic back pain Chronicity: acute Back pain laterality: bilateral Qualified Codes: M54.6 - Pain in thoracic spine Fall Encounter type: initial encounter Qualified Codes: W19.XXXA - Unspecified fall, initial encounter
[2017-06-14 15:10] VITALS: BP 135/77; PULSE 80; O2SAT 98
== END 2017-06-14 15:10 | disposition home or self-care (01) ==
LOC: C.EDB 13:27 → C.EDD 15:10
DX: S39.012A Strain of muscle, fascia and tendon of lower back, initial encounter (principal); M54.6 Pain in thoracic spine; W19.XXXA Unspecified fall, initial encounter; Y99.0 Civilian activity done for income or pay; F17.200 Nicotine dependence, unspecified, uncomplicated; J45.909 Unspecified asthma, uncomplicated; F90.9 Attention-deficit hyperactivity disorder, unspecified type; F32.9 Major depressive disorder, single episode, unspecified; Z88.8 Allergy status to other drugs, medicaments and biological substances

== ENCOUNTER 2017-11-20 10:45 | Emergency (ER) | payer OTHER ==
[~2017-11-20] VITALS: Ht 167.6 cm; Wt 94.7 kg
[~2017-11-20 10:45] MED LIST changes: +ASPI-390 PO; -HYDR-5688 PO
[2017-11-20 10:51] VITALS: TEMP 36.9; Ht 167.6 cm; Wt 94.7 kg
[2017-11-20] MEDS ORDERED: SODIUM CHLORIDE 0.9% 1000ML 1,000 ML IV STA (11:11)
[2017-11-20] MEDS ORDERED: SODIUM CHLORIDE 0.9% 1000ML 1,000 ML IV ONE (11:11)
[2017-11-20] MEDS ORDERED: ACET-1256 PO (11:21)
--- NOTE | 2017-11-20 11:22 | EMERGENCY ROOM VISIT NOTE ---
History Report prepared by Ananya: Cindy Serna Under the Supervision of: Dr. Len Bateman M.D. First contact with patient: 11:04 Chief Complaint: ABDOMINAL PAIN Stated Complaint: SEVERE CRAMPS LOW BELLY COLD SWEATS () Nursing Triage Summary: 8 weeks . lower abd cramping since 0900. started at work where pt does a lot of lifting. Also cold sweats, "I feel like I have a fever". denies n/v, does have diarrhea. also reports bright red spotting since this am. Hx of ectopic History of Present Illness The patient is a 27 year old female who presents to the Emergency Room with complaints of constant left-sided abdominal pain that began at 0600 this morning. Patient has been 6 times before, and she has 4 kids. Her last resulted in an ectopic . She believes she's 8 weeks , and she last had her period in August. The patient says that her symptoms feel similar to her symptoms when she had her ectopic , prompting her visit today. She stated that she woke up with the pain. Yesterday, she called off work , because she felt like she had a fever. She confirms fever, cold sweats, diarrhea, light spotting, morning sickness, tender breasts, and back pain. The patient denies that she has any dysuria and hematuria. She has a history of migraines, PTSD, bipolar disorder, and ovarian cyst. She notes that she smokes marijuana, but she'll stop due to her . She also denies self-harm or suicidal ideations. Source of History: patient Onset: 0600 this morning Position: abdomen (left-sided) Symptom Intensity: 610 Timing: constant Associated Symptoms: + fevers, + back pain, No urinary symptoms Note: The patient also complains of cold sweats, light spotting, morning sickness, and tender breasts. Review of Systems See HPI for pertinent positives & negatives. A total of 10 systems reviewed and were otherwise negative. Past Medical & Surgical Medical Problems: (1) ASTHMA, UNSPECIFIED (2) ATTN DEFICIT W HYPERACT (3) BIPOLAR DISORDER, UNSPECIFIED (4) Borderline personality disorder (5) Cannabis abuse (6) Chronic abdominal pain (7) Depressive disorder (8) Gallstone (9) GERD (gastroesophageal reflux disease) (10) Hypokalemia (11) Migraine (12) Ovarian cyst (13) Palpitations (14) Pelvic pain (15) PTSD (post-traumatic stress disorder) (16) Tobacco abuse (17) TOBACCO USE DISORDER Surgical Problems: (1) History of cholecystectomy (2) S/p pin of distal finger fracture Old medical records were reviewed. Nurse's notes were reviewed and I agree with. Family History Asthma MOTHER Blood clots MATERNAL GRANDMOTHER Diabetes mellitus FH: cancer MATERNAL GRANDMOTHER (lung CA) FH: heart disease MATERNAL GRANDMOTHER MATERNAL GRANDFATHER FH: lung disease Gallbladder disease Hypertension MATERNAL GRANDMOTHER Kidney disease Kidney stones Stroke MATERNAL GRANDFATHER Social History Smoking Status: Current Every Day Smoker Alcohol Use: none Drug Use: marijuana Marital Status: single Housing Status: other Occupation Status: employed Current/Historical Medications Scheduled Acetaminophen (Tylenol), 2 TAB PO Q6 Scheduled PRN Uinawaq-Ixabiktwsvuhn-Vvvvujwv (Excedrin Migraine), 1-2 TABS PO BID PRN for Migraine Allergies Coded Allergies: Nitrofurantoin (Verified Allergy, Severe, ANAPHYLAXIS, 11/20/17) Mometasone (Verified Adverse Reaction, Severe, migraines, 11/20/17) Physical Exam Vital Signs Date Time Temp Pulse Resp B/P (MAP) Pulse Ox O2 Delivery O2 Flow Rate FiO2 11/20/17 14:25 79 119/69 98 11/20/17 12:53 80 102/65 100 Room Air 11/20/17 10:51 36.9 101 16 123/72 99 Room Air Physical Exam General: Non-ill appearing younger female in no acute distress. HEENT: Normal cephalic atraumatic. Pupils are equal round and reactive to light. Extraocular movements are intact. Oropharynx is pink with moist mucous membranes. No swelling of the mouth lips or tongue. Neck: Supple with a midline trachea. No meningeal signs or stiffness, no JVD or bruits. No Stridor. Chest: Clear to auscultation bilaterally. No wheezes or rhonchi. No increased work of breathing. Heart: regular rate and rhythm. Abdomen: Soft, nondistended without rebound guarding or rigidity. Mildly tender in left lower abdomen. Extremities: No cyanosis clubbing or edema. No calf tenderness or assymetry Spine/Back. Non tender to palpation. No CVA tenderness Skin: Good turgor without rashes. Neurologic exam: Cranial nerves two through 12 are intact. Motor and sensation are intact and symmetrical throughout Medical Decision & Procedures ER Provider Diagnostic Interpretation: Radiology results as stated below per my review and radiologist interpretation: ECTOPIC FINDINGS: Anteflexed uterus measures 9.5 x 5.5 x 6.7 cm. Intrauterine gestational sac with single living intrauterine gestation is noted, crown-rump length of 1.7 cm correlating with estimated gestational age of 8 weeks 1 day. heart rate measured at 152 bpm. Yolk sac measures 0.3 cm. Ill-defined hypoechoic collections noted along the anterior and fundal aspect of the gestational sac measuring up to 1.5 x 0.7 x 1.7 cm without internal flow identified. Left ovary measures 3.7 x 1.3 x 3.1 cm with arterial inflow and venous outflow documented. Right ovary measures 3.0 x 4.2 x 2.8 cm with cystic thick-walled lesion of the right ovary measuring up to 2.3 cm compatible with corpus luteal cyst. IMPRESSION: 1. Single living intrauterine gestation with estimated gestational age by crown-rump length of 8 weeks and 1 day. Estimated date of delivery calculated at 07/01/2018. 2. Small subchorionic hemorrhage. Attention at follow-up recommended. 3. Right corpus luteal cyst. The above report was generated using voice recognition software. It may contain grammatical, syntax or spelling errors. Electronically signed by: Jermain Heredia M.D. 11/20/2017 12:35 PM Laboratory Results 11/20/17 11:44 Red Blood Count 4.48, Mean Corpuscular Volume 89.1, Mean Corpuscular Hemoglobin 29.9, Mean Corpuscular Hemoglobin Concent 33.6, Mean Platelet Volume 10.0, Neutrophils (%) (Auto) 61.6, Lymphocytes (%) (Auto) 29.9, Monocytes (%) (Auto) 6.2, Eosinophils (%) (Auto) 1.8, Basophils (%) (Auto) 0.2, Neutrophils # (Auto) 8.02, Lymphocytes # (Auto) 3.89, Monocytes # (Auto) 0.81, Eosinophils # (Auto) 0.23, Basophils # (Auto) 0.02 11/20/17 11:44 Test 11/20/17 11:00 11/20/17 11:44 Urine Color DK YELLOW Urine Appearance TURBID (CLEAR) Urine pH 5.0 (4.5-7.5) Urine Specific [place] 1.033 (1.000-1.030) Urine Protein NEG (NEG) Urine Glucose (UA) NEG (NEG) Urine Ketones NEG (NEG) Urine Occult Blood TRACE (NEG) Urine Nitrite NEG (NEG) Urine Bilirubin NEG (NEG) Urine Urobilinogen NEG (NEG) Urine Leukocyte Esterase NEG (NEG) Urine WBC (Auto) 5-10 /hpf (0-5) Urine RBC (Auto) 0-4 /hpf (0-4) Urine Hyaline Casts (Auto) 1-5 /lpf (0-5) Urine Epithelial Cells (Auto) >30 /lpf (0-5) Urine Bacteria (Auto) 1+ (NEG) White Blood Count 13.01 K/uL (4.8-10.8) Red Blood Count 4.48 M/uL (4.2-5.4) Hemoglobin 13.4 g/dL (12.0-16.0) Hematocrit 39.9 % (37-47) Mean Corpuscular Volume 89.1 fL (80-100) Mean Corpuscular Hemoglobin 29.9 pg (25-34) Mean Corpuscular Hemoglobin Concent 33.6 g/dl (32-36) Platelet Count 245 K/uL (130-400) Mean Platelet Volume 10.0 fL (7.4-10.4) Neutrophils (%) (Auto) 61.6 % Lymphocytes (%) (Auto) 29.9 % Monocytes (%) (Auto) 6.2 % Eosinophils (%) (Auto) 1.8 % Basophils (%) (Auto) 0.2 % Neutrophils # (Auto) 8.02 K/uL (1.4-6.5) Lymphocytes # (Auto) 3.89 K/uL (1.2-3.4) Monocytes # (Auto) 0.81 K/uL (0.11-0.59) Eosinophils # (Auto) 0.23 K/uL (0-0.5) Basophils # (Auto) 0.02 K/uL (0-0.2) RDW Standard Deviation 45.5 fL (36.4-46.3) RDW Coefficient of Variation 14.0 % (11.5-14.5) Immature Granulocyte % (Auto) 0.3 % Immature Granulocyte # (Auto) 0.04 K/uL (0.00-0.02) Anion Gap 11.0 mmol/L (3-11) Est Creatinine Clear Calc Drug Dose 143.6 ml/min Estimated GFR () 137.7 Estimated GFR (Non- 118.8 BUN/Creatinine Ratio 12.7 (10-20) Calcium Level 8.9 mg/dl (8.5-10.1) Total Bilirubin 0.3 mg/dl (0.2-1) Direct Bilirubin < 0.1 mg/dl (0-0.2) Aspartate Amino Transf (AST/SGOT) 18 U/L (15-37) Alanine Aminotransferase (ALT/SGPT) 21 U/L (12-78) Alkaline Phosphatase 84 U/L (45-117) Total Protein 7.8 gm/dl (6.4-8.2) Albumin 3.6 gm/dl (3.4-5.0) Lipase 110 U/L (73-393) Human Chorionic Gonadotropin, Qual POS (NEG) Human Chorionic Gonadotropin, Quant 40070 mIU/mL Date/Time Source Procedure Growth Status 11/20/17 11:00 Urine , Clean Catch Urine Culture - Final MORE THAN THREE TYPES OF ORGANISMS LA... Complete Laboratory studies as stated above per my review. Medications Administered Medications (Trade) Dose Ordered Sig/Tamra Route Start Time Stop Time Status Last Admin Dose Admin Sodium Chloride 1,000 ml @ 999 mls/hr Q1H1M STAT IV 11/20/17 11:11 11/20/17 12:11 DC 11/20/17 11:54 999 MLS/HR Sodium Chloride 1,000 ml @ 200 mls/hr Q5H ONCE IV 11/20/17 11:11 11/20/17 14:57 DC 11/20/17 13:16 200 MLS/HR ED Course 1104: Past medical records reviewed. The patient was evaluated in room C9, and a complete history and physical examination were performed. 1111: Sodium Chloride 1000 ml @ 200 mls/hr IV, Sodium Chloride 1000 ml @ 999 mls /hr 1246: I reevaluated and updated the patient. She is resting comfortably. 1406: I rechecked the patient. 1426: Upon reevaluation, the patient is stable. I discussed the results and treatment plan with her. She verbalized agreement of the treatment plan. The patient was discharged home. Medical Decision Differential diagnoses include: ectopic , electrolyte/metabolic abnormalities, UTI, and miscarriage. This patient comes in as described above. She was placed in room C9. She is here for treatment and evaluation of left lower abdominal pain. She appears well on exam. she has no significant vaginal discharge and occasional spotting. No dysuria or hematuria. IV access was established. her test was positive. her quantitative was elevated as well there was an IUP seen. This is a natural and therefore highly unlikely heterotopic . Her urinalysis does not suggest UTI is suboptimal with greater than 30 epithelial cells and she has no urinary symptoms. She feels good and would like to go home she is appointment with her jewelry finisher tomorrow which I encouraged her to keep. At this point, there is nothing to suggest appendicitis or diverticulitis or other pathology. She will be discharged home and keep her appoint with her jewelry finisher tomorrow return if any new problems or concerns. Medication Reconcilliation Current Medication List: was personally reviewed by me Blood Pressure Screening Patient's blood pressure: Elevated blood pressure Blood pressure disposition: Elevated BP felt to be situational Impression Primary Impression: LLQ abdominal pain Additional Impression: Intrauterine Scribe Attestation The scribe's documentation has been prepared under my direction and personally reviewed by me in its entirety. I confirm that the note above accurately reflects all work, treatment, procedures, and medical decision making performed by me. Departure Information Dispostion Home / Self-Care Referrals No Doctor, Assigned (PCP) Forms HOME CARE DOCUMENTATION FORM, IMPORTANT VISIT INFORMATION Patient Instructions My [facility] Additional Instructions Rest. Drink plenty of fluids. Keep your appointment Dr. Payton tomorrow For pain, may use acetaminophen(Tylenol) a maximum of 650 mg every 6 hours Return if: Increasing pain, fever or chills, vaginal bleeding or discharge, any new problems or concerns Problem Qualifiers
[2017-11-20 11:55] LABS: BASO % 0.2 %; BASO ABS # 0.02 K/uL (0-0.2); EOS % 1.8 %; EOS ABS # 0.23 K/uL (0-0.5); HEMATOCRIT 39.9 % (37-47); HEMOGLOBIN 13.4 g/dL (12.0-16.0); IG# 0.04 K/uL (0.00-0.02); LYMPH % 29.9 %; LYMPH ABS # 3.89 K/uL (1.2-3.4); MEAN CELL VOLUME 89.1 fL (80-100); MEAN CORPUSCULAR HEMOGLOBIN 29.9 pg (25-34); MEAN CORPUSCULAR HGB CONC 33.6 g/dl (32-36); MONO % 6.2 %; MONO ABS # 0.81 K/uL (0.11-0.59); NEUT % 61.6 %; NEUT ABS # 8.02 K/uL (1.4-6.5); PLATELET COUNT 245 K/uL (130-400); RED CELL DISTRIBUTION WIDTH SD 45.5 fL (36.4-46.3); WHITE BLOOD COUNT 13.01 K/uL (4.8-10.8)
[2017-11-20 12:15] LABS: ALBUMIN 3.6 gm/dl (3.4-5.0); ALKALINE PHOSPHATASE 84 U/L (45-117); ALT/SGPT 21 U/L (12-78); AST/SGOT 18 U/L (15-37); BLOOD UREA NITROGEN 9 mg/dl (7-18); CALCIUM 8.9 mg/dl (8.5-10.1); CARBON DIOXIDE 22 mmol/L (21-32); CREATININE 0.67 mg/dl (0.60-1.20); GLUCOSE 85 mg/dl (70-99); LIPASE 110 U/L (73-393); POTASSIUM 3.5 mmol/L (3.5-5.1); SODIUM 139 mmol/L (136-145); TOTAL PROTEIN 7.8 gm/dl (6.4-8.2)
--- NOTE | 2017-11-20 12:37 | DIAGNOSTIC IMAGING REPORT ---
ECTOPIC HISTORY: 27 years-old Female left lower abd pain, hx of ectopic previous acute left lower abdominal pelvic pain with history of prior ectopic gestation COMPARISON: CT abdomen and pelvis 01/15/2016 TECHNIQUE: Multiple real-time sonographic images of the deep pelvic structures were obtained transabdominally assessing grayscale appearance, color flow and M-mode analysis. FINDINGS: Anteflexed uterus measures 9.5 x 5.5 x 6.7 cm. Intrauterine gestational sac with single living intrauterine gestation is noted, crown-rump length of 1.7 cm correlating with estimated gestational age of 8 weeks 1 day. heart rate measured at 152 bpm. Yolk sac measures 0.3 cm. Ill-defined hypoechoic collections noted along the anterior and fundal aspect of the gestational sac measuring up to 1.5 x 0.7 x 1.7 cm without internal flow identified. Left ovary measures 3.7 x 1.3 x 3.1 cm with arterial inflow and venous outflow documented. Right ovary measures 3.0 x 4.2 x 2.8 cm with cystic thick-walled lesion of the right ovary measuring up to 2.3 cm compatible with corpus luteal cyst. IMPRESSION: 1. Single living intrauterine gestation with estimated gestational age by crown-rump length of 8 weeks and 1 day. Estimated date of delivery calculated at 07/01/2018. 2. Small subchorionic hemorrhage. Attention at follow-up recommended. 3. Right corpus luteal cyst. The above report was generated using voice recognition software. It may contain grammatical, syntax or spelling errors. Electronically signed by: Jermain Heredia M.D. 11/20/2017 12:35 PM Dictated Date/Time: 11/20/2017 12:31 PM
[2017-11-20 14:25] VITALS: BP 119/69; PULSE 79; O2SAT 98
== END 2017-11-20 14:26 | disposition home or self-care (01) ==
LOC: C.EDB 10:46 → C.EDC 14:26
DX: R10.32 Left lower quadrant pain (principal); O00.01 Abdominal pregnancy with intrauterine pregnancy; J45.909 Unspecified asthma, uncomplicated; F90.9 Attention-deficit hyperactivity disorder, unspecified type; F31.9 Bipolar disorder, unspecified; F32.9 Major depressive disorder, single episode, unspecified; K21.9 Gastro-esophageal reflux disease without esophagitis; E87.6 Hypokalemia; F43.10 Post-traumatic stress disorder, unspecified; F17.200 Nicotine dependence, unspecified, uncomplicated; Z88.8 Allergy status to other drugs, medicaments and biological substances

== ENCOUNTER 2017-11-22 21:46 | Emergency (ER) | payer OTHER ==
[~2017-11-22 21:46] MED LIST changes: +ACET-1256 PO
[2017-11-22 21:50] VITALS: TEMP 36.9; Ht 165.1 cm
[2017-11-22] MEDS ORDERED: ACETAMINOPHEN 500 MG TAB PO STA (21:58)
[2017-11-22] MEDS ORDERED: SODIUM CHLORIDE 0.9% 1000ML 2,000 ML IV STA (21:58)
[2017-11-22] MEDS ORDERED: DiphenhydrAMINE HCL 50 MG/ML VIAL IV STA (21:58)
[2017-11-22] MEDS ORDERED: ONDANSETRON INJ 2 MG/ML 2 ML VIAL IV STA (21:58)
[2017-11-22 22:24] LABS: BASO % 0.2 %; BASO ABS # 0.02 K/uL (0-0.2); EOS % 2.5 %; EOS ABS # 0.31 K/uL (0-0.5); HEMOGLOBIN 12.4 g/dL (12.0-16.0); IG# 0.04 K/uL (0.00-0.02); LYMPH % 28.6 %; LYMPH ABS # 3.54 K/uL (1.2-3.4); MEAN CELL VOLUME 89.4 fL (80-100); MEAN CORPUSCULAR HGB CONC 33.5 g/dl (32-36); MEAN PLATELET VOLUME 9.9 fL (7.4-10.4); MONO % 6.7 %; MONO ABS # 0.83 K/uL (0.11-0.59); NEUT % 61.7 %; NEUT ABS # 7.64 K/uL (1.4-6.5); PLATELET COUNT 240 K/uL (130-400); RED CELL DISTRIBUTION WIDTH CV 14.3 % (11.5-14.5); RED CELL DISTRIBUTION WIDTH SD 46.5 fL (36.4-46.3); WHITE BLOOD COUNT 12.38 K/uL (4.8-10.8)
[2017-11-22 22:43] LABS: ALBUMIN 3.3 gm/dl (3.4-5.0); ALKALINE PHOSPHATASE 77 U/L (45-117); ALT/SGPT 15 U/L (12-78); AST/SGOT 15 U/L (15-37); BLOOD UREA NITROGEN 5 mg/dl (7-18); CALCIUM 8.7 mg/dl (8.5-10.1); CARBON DIOXIDE 24 mmol/L (21-32); CREATININE 0.61 mg/dl (0.60-1.20); GLUCOSE 82 mg/dl (70-99); POTASSIUM 3.7 mmol/L (3.5-5.1); SODIUM 136 mmol/L (136-145); TOTAL PROTEIN 7.2 gm/dl (6.4-8.2)
--- NOTE | 2017-11-22 23:20 | EMERGENCY ROOM VISIT NOTE ---
History Report prepared by Ananya: Rylee Cabrera Under the Supervision of: Dr. Uriel Romero M.D. First contact with patient: 21:53 Chief Complaint: ILLNESS Stated Complaint: ILLNESS/FEVER History of Present Illness The patient is a 27 year old female who presents to the Emergency Room with complaints of constantly feeling feverish beginning about a week ago. She notes she has not taken her temperature, as she does not own a thermometer. The patient reports she is 9 weeks , and this is her 6th : she has 3 children, and has had 1 miscarriage and 1 ectopic . She reports she has had too many episodes of diarrhea to count, beginning today. The patient notes she has been experiencing congestion, coughing, and sneezing. She notes some lower abdominal cramping that began 3 days ago. The patient states she is unsure if she is having increased frequency of urination, as it may be due to her . She denies vomiting. The patient reports she was seen in the ED 3 days ago, and was scheduled to see her SECURITY BUSINESS ANALYST today but the appointment was rescheduled for a few days from now. She denies recent known sick contacts. Source of History: patient Onset: about a week ago Position: head Quality: other (feeling feverish) Timing: constant Associated Symptoms: + cough, + diarrhea, No vomiting Note: Associated symptom: congestion, sneezing, abdominal cramping. Review of Systems See HPI for pertinent positives & negatives. A total of 10 systems reviewed and were otherwise negative. Past Medical & Surgical Medical Problems: (1) ASTHMA, UNSPECIFIED (2) ATTN DEFICIT W HYPERACT (3) BIPOLAR DISORDER, UNSPECIFIED (4) Borderline personality disorder (5) Cannabis abuse (6) Chronic abdominal pain (7) Depressive disorder (8) Gallstone (9) GERD (gastroesophageal reflux disease) (10) Hypokalemia (11) Migraine (12) Ovarian cyst (13) Palpitations (14) Pelvic pain (15) PTSD (post-traumatic stress disorder) (16) Tobacco abuse (17) TOBACCO USE DISORDER Surgical Problems: (1) History of cholecystectomy (2) S/p pin of distal finger fracture Family History Asthma MOTHER Blood clots MATERNAL GRANDMOTHER Diabetes mellitus FH: cancer MATERNAL GRANDMOTHER (lung CA) FH: heart disease MATERNAL GRANDMOTHER MATERNAL GRANDFATHER FH: lung disease Gallbladder disease Hypertension MATERNAL GRANDMOTHER Kidney disease Kidney stones Stroke MATERNAL GRANDFATHER Social History Smoking Status: Unknown if Ever Smoked Alcohol Use: none Drug Use: marijuana Marital Status: single Housing Status: other Occupation Status: employed Current/Historical Medications Scheduled Acetaminophen (Tylenol), 2 TAB PO Q6 Scheduled PRN Hldgtmz-Hqqstpsuwviik-Jgrtfiic (Excedrin Migraine), 1-2 TABS PO BID PRN for Migraine Allergies Coded Allergies: Nitrofurantoin (Verified Allergy, Severe, ANAPHYLAXIS, 11/22/17) Mometasone (Verified Adverse Reaction, Severe, migraines, 11/22/17) Physical Exam Vital Signs Date Time Temp Pulse Resp B/P (MAP) Pulse Ox O2 Delivery O2 Flow Rate FiO2 11/22/17 21:50 36.9 94 16 131/71 99 Room Air Physical Exam GENERAL: Patient is in no acute distress. HEENT: No acute trauma, normocephalic atraumatic, mucous membranes moist, no nasal congestion, no scleral icterus. NECK: No stridor, no adenopathy, no meningismus, trachea is midline. LUNGS: Clear to auscultation bilaterally, no wheeze, no rhonchi, breath sounds equal. HEART: Mildly tachycardic with a regular rhythm, no murmurs. ABDOMEN: Soft, nontender, bowel sounds positive, no hernias, no peritonitis. EXTREMITIES: No cyanosis or edema, full range of motion of all the joints without pain or difficulty, no signs for acute trauma. NEUROLOGIC: Oriented x 3, no acute motor or sensory deficits, no focal weakness. SKIN: No rash, no jaundice, no diaphoresis. Medical Decision & Procedures Laboratory Results 11/22/17 22:15 Red Blood Count 4.14, Mean Corpuscular Volume 89.4, Mean Corpuscular Hemoglobin 30.0, Mean Corpuscular Hemoglobin Concent 33.5, Mean Platelet Volume 9.9, Neutrophils (%) (Auto) 61.7, Lymphocytes (%) (Auto) 28.6, Monocytes (%) (Auto) 6.7, Eosinophils (%) (Auto) 2.5, Basophils (%) (Auto) 0.2, Neutrophils # (Auto) 7.64, Lymphocytes # (Auto) 3.54, Monocytes # (Auto) 0.83, Eosinophils # (Auto) 0.31, Basophils # (Auto) 0.02 11/22/17 22:15 Test 11/22/17 22:15 11/22/17 22:25 White Blood Count 12.38 K/uL (4.8-10.8) Red Blood Count 4.14 M/uL (4.2-5.4) Hemoglobin 12.4 g/dL (12.0-16.0) Hematocrit 37.0 % (37-47) Mean Corpuscular Volume 89.4 fL (80-100) Mean Corpuscular Hemoglobin 30.0 pg (25-34) Mean Corpuscular Hemoglobin Concent 33.5 g/dl (32-36) Platelet Count 240 K/uL (130-400) Mean Platelet Volume 9.9 fL (7.4-10.4) Neutrophils (%) (Auto) 61.7 % Lymphocytes (%) (Auto) 28.6 % Monocytes (%) (Auto) 6.7 % Eosinophils (%) (Auto) 2.5 % Basophils (%) (Auto) 0.2 % Neutrophils # (Auto) 7.64 K/uL (1.4-6.5) Lymphocytes # (Auto) 3.54 K/uL (1.2-3.4) Monocytes # (Auto) 0.83 K/uL (0.11-0.59) Eosinophils # (Auto) 0.31 K/uL (0-0.5) Basophils # (Auto) 0.02 K/uL (0-0.2) RDW Standard Deviation 46.5 fL (36.4-46.3) RDW Coefficient of Variation 14.3 % (11.5-14.5) Immature Granulocyte % (Auto) 0.3 % Immature Granulocyte # (Auto) 0.04 K/uL (0.00-0.02) Anion Gap 9.0 mmol/L (3-11) Estimated GFR () 142.0 Estimated GFR (Non- 122.5 BUN/Creatinine Ratio 8.0 (10-20) Calcium Level 8.7 mg/dl (8.5-10.1) Total Bilirubin 0.2 mg/dl (0.2-1) Aspartate Amino Transf (AST/SGOT) 15 U/L (15-37) Alanine Aminotransferase (ALT/SGPT) 15 U/L (12-78) Alkaline Phosphatase 77 U/L (45-117) Total Protein 7.2 gm/dl (6.4-8.2) Albumin 3.3 gm/dl (3.4-5.0) Globulin 3.9 gm/dl (2.5-4.0) Albumin/Globulin Ratio 0.8 (0.9-2) Urine Color YELLOW Urine Appearance CLEAR (CLEAR) Urine pH 7.5 (4.5-7.5) Urine Specific [place] 1.019 (1.000-1.030) Urine Protein NEG (NEG) Urine Glucose (UA) NEG (NEG) Urine Ketones NEG (NEG) Urine Occult Blood NEG (NEG) Urine Nitrite NEG (NEG) Urine Bilirubin NEG (NEG) Urine Urobilinogen NEG (NEG) Urine Leukocyte Esterase NEG (NEG) Laboratory results reviewed by me. Medications Administered Medications (Trade) Dose Ordered Sig/Tamra Route Start Time Stop Time Status Last Admin Dose Admin Sodium Chloride 2,000 ml @ 999 mls/hr Q2H1M STAT IV 11/22/17 21:58 11/22/17 23:58 11/22/17 22:13 999 MLS/HR Acetaminophen (Tylenol Tab) 1,000 mg NOW STAT PO 11/22/17 21:58 11/22/17 22:00 DC 11/22/17 22:13 1,000 MG Diphenhydramine HCl (Benadryl Inj) 25 mg NOW STAT IV 11/22/17 21:58 11/22/17 22:00 DC 11/22/17 22:13 25 MG Ondansetron HCl (Zofran Inj) 4 mg NOW STAT IV 11/22/17 21:58 11/22/17 22:00 DC 11/22/17 22:13 4 MG Ondansetron HCl (ZOFRAN ODT 4MG Home Pack) 1 homepack UD ONCE PO 11/22/17 23:30 11/22/17 23:31 DC 11/22/17 23:36 1 HOMEPACK ED Course 3: The patient was evaluated in room A10. A complete history and physical exam was performed. 8: Ordered Zofran Inj 4 mg IV, Benadryl Inj 25 mg IV, Acetaminophen 1000 mg PO, Sodium Chloride 2000 ml @ 999 mls/hr IV. 1: Reevaluated the patient. Discussed results and discharge instructions: she verbalized understanding and agreement. The patient is ready for discharge. 2330: Ordered Ondansetron HCl 1 homepack PO. Medical Decision Differential diagnoses include: viral illness, URI, UTI, dehydration, electrolyte imbalance, anemia, anxiety. There is a mild leukocytosis, likely just from her . No concerning anemia. No significant electrolyte abnormality, no kidney failure. Urinalysis does not show evidence for infection. On exam, there was no peritonitis. The patient was not febrile or toxic. The patient received IV saline, IV Benadryl, IV Zofran and oral Tylenol. She feels improved, she is resting comfortably. The patient's illness is likely viral, some of what is happening tonight is a related I believe as well. The patient has been reassured by her testing. She feels improved. She is being discharged with a few Zofran for nausea as needed. She will slowly advance her diet. She can follow with OB. If worsening, she can return. Medication Reconcilliation Current Medication List: was personally reviewed by me Blood Pressure Screening Patient's blood pressure: Elevated blood pressure Blood pressure disposition: Elevated BP felt to be situational Impression Primary Impression: Dehydration Additional Impressions: Diarrhea Scribe Attestation The scribe's documentation has been prepared under my direction and personally reviewed by me in its entirety. I confirm that the note above accurately reflects all work, treatment, procedures, and medical decision making performed by me. Departure Information Dispostion Home / Self-Care Referrals No Doctor, Assigned (PCP) Forms HOME CARE DOCUMENTATION FORM, IMPORTANT VISIT INFORMATION, WORK / SCHOOL INSTRUCTIONS Patient Instructions My [facility] Additional Instructions bland diet---crackers, soup, toast, gatorade, toast, rice follow with doorperson or luggage porter zofran 1 tab every 6 hours as needed for nausea tylenol for pain rest may return to work on lab work and urine testing today was ok Problem Qualifiers Additional Impressions: Diarrhea Diarrhea type: unspecified type Qualified Codes: R19.7 - Diarrhea, unspecified Weeks of gestation: 9 weeks Qualified Codes: Z3A.09 - 9 weeks gestation of
[2017-11-22] MEDS ORDERED: ONDANSETRON HOME PACK 4MG OD TAB PO ONE (23:30)
[2017-11-22 23:35] VITALS: BP 90/41; PULSE 99; O2SAT 99
== END 2017-11-22 23:40 | disposition home or self-care (01) ==
LOC: C.EDA 21:46 → EDBD 21:46 → C.EDA 23:40
DX: E86.0 Dehydration (principal); R19.7 Diarrhea, unspecified; Z3A.09 9 weeks gestation of pregnancy; J45.909 Unspecified asthma, uncomplicated; F90.9 Attention-deficit hyperactivity disorder, unspecified type; F31.9 Bipolar disorder, unspecified; F32.9 Major depressive disorder, single episode, unspecified; K21.9 Gastro-esophageal reflux disease without esophagitis; E87.6 Hypokalemia; F43.10 Post-traumatic stress disorder, unspecified; F12.90 Cannabis use, unspecified, uncomplicated; Z88.8 Allergy status to other drugs, medicaments and biological substances

== ENCOUNTER 2018-06-26 08:31 | Inpatient (IN) ==
[2018-06-26] MEDS ORDERED: OXYTOCIN 30 UNITS/500 ML BAG IV PRN (19:25)
[2018-06-26] MEDS ORDERED: LACTATED RINGER'S 1,000 ML IV PRN (19:25)
[2018-06-26] MEDS ORDERED: LACTATED RINGER'S 1,000 ML IV SCH (19:30)
[2018-06-26 19:49] LABS: Hematocrit (blood only) 35.3 % (37-47); Mean Corpuscular Volume 91.9 fL (80-100); Platelet Count 189 K/uL (130-400); RDW Coefficient of Variation 15.8 % (11.5-14.5); RDW Standard Deviation 52.8 fL (36.4-46.3); Red Blood Count 3.84 M/uL (4.2-5.4); White Blood Count 13.59 K/uL (4.8-10.8)
[2018-06-26] MEDS ORDERED: miSOPROStol 50 MCG TAB PO ONE (20:00)
[2018-06-27] MEDS ORDERED: miSOPROStol 50 MCG TAB PO ONE (00:58)
[2018-06-27] MEDS ORDERED: BUTORPHANOL TARTRATE 2 MG/ML VIAL IV PRN (04:58)
[2018-06-27] MEDS ORDERED: BUPIVACAINE 0.25% 30 ML VIAL ONE (05:32)
[2018-06-27] MEDS ORDERED: ePHEDrine sulfate 50 MG/ML AMP ONE (05:33)
[2018-06-27] MEDS ORDERED: fentaNYL citrate 100 MCG/2 ML VIAL ONE (05:33)
[2018-06-27] MEDS ORDERED: fentaNYL 2MCG/ML ROPIV 1.25MG/ML 100 ML BAG EPI ONE (05:34)
[2018-06-27] MEDS ORDERED: LACTATED RINGER'S 1,000 ML IV PRN (05:37)
[2018-06-27] MEDS ORDERED: ONDANSETRON INJ 2 MG/ML 2 ML VIAL IV PRN (05:37)
[2018-06-27] MEDS ORDERED: NALOXONE HCL 1 MG in SODIUM CHLORIDE 0.9% 1000ML 1,000 ML IV PRN (05:37)
[2018-06-27] MEDS ORDERED: DiphenhydrAMINE HCL 50 MG/ML VIAL IV PRN (05:37)
[2018-06-27] MEDS ORDERED: NALOXONE HCL 0.4 MG/1 ML VIAL/CARP IV PRN (05:37)
[2018-06-27] MEDS ORDERED: NALBUPHINE HCL INJ 10 MG/ML AMP IV PRN (05:37)
[2018-06-27] MEDS ORDERED: ePHEDrine sulfate 50 MG/ML AMP IV PRN (05:37)
[2018-06-27] MEDS ORDERED: fentaNYL 2MCG/ML ROPIV 1.25MG/ML 100 ML BAG EPI PRN (05:37)
--- NOTE | 2018-06-27 05:40 | Anesthesiology Consultation ---
Date of Service June 27, 2018 Assessment & Plan (1) Encounter for pre-operative examination: Chart Review Chart Review: Patient NOT seen in Pre Admission Testing and Acceptable Risk for Labor Epidural Consults Requested none History Height/Weight Weight: 111.13 kg Allergies Allergy/AdvReac Type Severity Reaction Status Date / Time nitrofurantoin Allergy Severe ANAPHYLAXIS Verified 05/11/18 20:42 mometasone furoate AdvReac Severe migraines Verified 05/11/18 20:42 Medications Home Medications Medication Instructions Recorded Confirmed Last Taken vit no.[id number] 1 tab PO DAILY 03/29/18 06/26/18 06/25/18 20:00 [ Vitamin] calcium carbonate [Tums] 200 mg PO BID PRN 03/31/18 06/26/18 06/26/18 08:00 Active Medications Generic Name Dose Route Start Last Admin Trade Name Freq PRN Reason Stop Dose Admin Lactated Ringer's 1,000 mls @ 999 mls/hr 06/26/18 19:25 06/27/18 05:40 Lr IV 07/26/18 19:24 125 mls/hr .Q1H1M PRN Infusion (Pre-Anesthesia) Past Medical History Medical History Anxiety Asthma Borderline personality disorder Bronchitis Depression Irritable bowel syndrome Migraines PTSD (post-traumatic stress disorder) Past Surgical History Surgical History Hx laparoscopic cholecystectomy 09/2012 Past Anesthesia History No Hx of Anesthesia Complications and No Family Hx of Anesthesia Complications History of PONV No Motion Sickness Screening History of Motion Sickness: No Social History Smoking Status: Current every day smoker tobacco type: cigarettes Smoking cigarettes per day: 5 Hx Alcohol Use: No Hx Substance Use: No substance use type: does not use Substance Use Type Other:: [id number] + methamphamines, marijuana and ecstacy, pt. denies use. Exercise / Class Metabolic Activity II 4-5 Yardwork/Stairs/Walk up hill Physical Exam Vital Signs Last Vital Signs Temp 36.7 C 06/27/18 05:50 Pulse 82 06/27/18 05:54 Resp 18 06/27/18 05:50 BP 113/56 L 06/27/18 03:49 Pulse Ox 99 06/27/18 05:54 Testing Laboratory Results 06/26/18 19:37
[2018-06-27] MEDS ORDERED: METHYLERGONOVINE MALEATE 0.2 MG/ML AMP ONE (10:00)
[2018-06-27] MEDS ORDERED: BENZOCAINE 20% AER SPR 82.5 GM CAN EXT PRN (10:09)
[2018-06-27] MEDS ORDERED: ACETAMINOPHEN W/CODEINE #3 1 TAB PO PRN (10:09)
[2018-06-27] MEDS ORDERED: SUPERCREAM 0.870% 15 GM JAR EXT PRN (10:09)
[2018-06-27] MEDS ORDERED: METHYLERGONOVINE MALEATE 0.2 MG/ML AMP IM ONE (10:09)
[2018-06-27] MEDS ORDERED: HYDROCORTISONE ACETATE 25 MG SUPP PR PRN (10:09)
[2018-06-27] MEDS ORDERED: OXYTOCIN 30 UNITS/500 ML BAG IV PRN (10:09)
[2018-06-27] MEDS ORDERED: DIPHTHERIA/TETANUS/PERTUSSIS 0.5 ML SYR/VIAL IM ONE (10:09)
[2018-06-27] MEDS ORDERED: ACETAMINOPHEN 325 MG TAB PO PRN (10:09)
[2018-06-27] MEDS ORDERED: OXYCODONE/ACETAMINOPHEN 5mg/325mg TAB PO PRN (10:09)
--- NOTE | 2018-06-27 10:39 | Delivery Summary ---
DATE OF OPERATION: 06/27/2018 DELIVERY NOTE She is a 28-year-old 5, para 4. She has had one ectopic . She is a smoker. She has history of early deliveries, her prior delivery in 2012, premature rupture of membranes at 30 weeks. She was also noted early on to have a shortened cervix. She was placed on Rimini once a week which she got until she was 36 weeks. She then requested induction at 39+ weeks due to the fact that her father of the baby was set to go to half-way. She is blood type A positive. She is rubella immune. She did have 2 courses of Celestone, one at about 26 weeks and one at about 33 weeks. She was brought in, given Cytotec 50 mcg, and about 4-5 hours later, another 50 mcg and then about 4-5 hours after that, her membranes ruptured spontaneously, fluid was clear, she began to have contractions. She then immediately received a dose of Stadol and then epidural. She had good pain relief from the epidural. She had an unstimulated labor. Contractions were irregular. Dilatation of the cervix was steady. Descent of the head was steady. She did have some problems with bradycardia just prior to delivery. This was managed with mask oxygen, some scalp stimulation and eventually she crowned the head. There was extremely tight nuchal cord which had to be cut prior to delivery of the shoulders. Then, the infant was suctioned through the mouth and the nose and was taken for some resuscitation. My own estimation of 1 and 5 minute Apgars are in the range of about 7 and 9. The placenta was delivered intact with IV Pitocin running. Little bit of additional bleeding after the delivery of placenta was controlled with IM Methergine. She had a right-sided periurethral laceration which was bleeding. This was sutured with a running 3-0 chromic. Following this, vaginal examination revealed no hematoma formation or sponges in the vagina. Perineum was intact. Estimated blood loss was 300 mL. I attest to the content of the Intraoperative Record and any orders documented therein. Any exception s are noted below.
[2018-06-27] MEDS: IBUPROFEN 600 MG TAB PO PRN ×2 (11:36→23:44)
--- NOTE | 2018-06-27 11:49 | Anesthesia Procedure Note ---
Date of Service June 27, 2018 Anesthesia Post Epidural Note Vital Signs Vital Signs: Temp Pulse Resp BP Pulse Ox 36.8 C 74 18 106/57 L 97 06/27/18 09:01 06/27/18 11:46 06/27/18 09:31 06/27/18 11:46 06/27/18 09:55 Pain Intensity Vaginal: Pain Intensity: 5 Notes Mental Status: alert / awake / arousable Nausea / Vomiting: adequately controlled Pain: adequately controlled Airway Patency, RR, SpO2: stable & adequate BP & HR: stable & adequate Hydration State: stable & adequate Neuraxial Anesthesia: was administered Anesthetic Complications: no major complications apparent Epidural: Removed without complications and With tip intact
[2018-06-27 13:08] LABS: Amphetamines+Metham, Urine Neg (Neg); Barbiturates, Urine Neg (Neg); Benzodiazepine, Urine Neg (Neg); Cocaine, Urine Neg (Neg); MDMA (Ecstacy), Urine Neg (Neg); Methadone, Urine Neg (Neg); Opiate, Urine Neg (Neg); Phencyclidine, Urine Neg (Neg)
[2018-06-27] MEDS: DOCUSATE SODIUM 100 MG CAP PO SCH (20:18)
[2018-06-28 07:45] LABS: Hematocrit (blood only) 35.1 % (37-47); Hemoglobin 11.7 g/dL (12.0-16.0); Mean Corpuscular Hgb Conc 33.3 g/dL (32-36); Mean Corpuscular Volume 92.1 fL (80-100); Mean Platelet Volume 10.5 fL (7.4-10.4); Platelet Count 167 K/uL (130-400); RDW Coefficient of Variation 15.9 % (11.5-14.5); RDW Standard Deviation 53.1 fL (36.4-46.3); Red Blood Count 3.81 M/uL (4.2-5.4); White Blood Count 12.68 K/uL (4.8-10.8)
[2018-06-28] MEDS: DOCUSATE SODIUM 100 MG CAP PO SCH ×2 (08:37→20:41)
[2018-06-28] MEDS: PRENATAL VITAMIN 1 TAB PO SCH (08:37)
[2018-06-28] MEDS: FERROUS SULFATE 325 MG TAB PO SCH (08:38)
[2018-06-28] MEDS: IBUPROFEN 600 MG TAB PO PRN ×2 (08:38→14:03)
--- NOTE | 2018-06-28 09:22 | Obstetrical Progress Note ---
Date of Service June 28, 2018 Physical Exam Vital Signs (Past 24 Hours): Last Vital Signs Temp 36.6 C 06/28/18 04:05 Pulse 65 06/28/18 04:05 Resp 18 06/28/18 04:05 BP 122/74 06/28/18 04:05 Pulse Ox 96 06/27/18 13:30 Physical Exam: abdomen soft and non tender vaginal bleeding scant to moderate no calf tenderness ambulating well
[2018-06-28] MEDS ORDERED: CALCIUM CARBONATE 500 MG CHEWABLE TAB PO PRN (10:44)
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
[2018-06-28] MEDS ORDERED: BISACODYL 5 MG TABEC PO SCH (20:00)
[2018-06-29] MEDS: IBUPROFEN 600 MG TAB PO PRN ×2 (00:11→08:18)
[2018-06-29 06:52] LABS: Hemoglobin 11.5 g/dL (12.0-16.0)
[2018-06-29] MEDS ORDERED: BISACODYL 10 MG SUPP PR PRN (08:00)
[2018-06-29] MEDS: FERROUS SULFATE 325 MG TAB PO SCH (08:19)
[2018-06-29] MEDS: DOCUSATE SODIUM 100 MG CAP PO SCH (08:19)
[2018-06-29] MEDS: PRENATAL VITAMIN 1 TAB PO SCH (08:19)
--- NOTE | 2018-06-29 09:12 | Obstetrical Progress Note ---
Date of Service June 29, 2018 Physical Exam Vital Signs (Past 24 Hours): Last Vital Signs Temp 36.7 C 06/29/18 08:27 Pulse 83 06/29/18 08:27 Resp 22 06/29/18 08:27 BP 122/74 06/29/18 08:56 Pulse Ox 94 06/29/18 08:27 Physical Exam: abdomen soft and non tender vaginal bleeding scant to moderate no calf tenderness ambulating well
== END 2018-06-29 10:50 | disposition home or self-care (01) | DRG 768 ==
LOC: 4S1 19:02 → 4S2 06-27 13:51

== ENCOUNTER 2020-06-20 12:53 | Observation (INO) ==
[2020-06-20 15:13] LABS: Basophils # (auto) 0.03 K/uL (0-0.2); Basophils % (auto) 0.2 %; Eosinophils # (auto) 0.09 K/uL (0-0.5); Eosinophils % (auto) 0.5 %; Hematocrit (blood only) 43.6 % (37-47); Hemoglobin 15.1 g/dL (12.0-16.0); Immature Granulocytes # (auto) 0.06 K/uL (0.00-0.02); Immature Granulocytes % (auto) 0.3 %; Lymphocytes # (auto) 4.58 K/uL (1.2-3.4); Mean Corpuscular Hemoglobin 30.3 pg (25-34); Mean Corpuscular Hgb Conc 34.6 g/dL (32-36); Mean Corpuscular Volume 87.4 fL (80-100); Mean Platelet Volume 10.5 fL (7.4-10.4); Monocytes # (auto) 1.28 K/uL (0.11-0.59); Neutrophils # (auto) 12.26 K/uL (1.4-6.5); Platelet Count 293 K/uL (130-400); RDW Coefficient of Variation 14.5 % (11.5-14.5); RDW Standard Deviation 46.5 fL (36.4-46.3); Red Blood Count 4.99 M/uL (4.2-5.4)
[2020-06-20 15:44] LABS: Albumin Level 4.4 gm/dl (3.4-5.0); Aspartate Aminotransferase 24 U/L (15-37); BUN Creatinine Ratio 15.2 (10-20); Blood Urea Nitrogen 14 mg/dl (7-18); Calcium 9.3 mg/dl (8.5-10.1); Carbon Dioxide 26 mmol/L (21-32); Chloride 108 mmol/L (98-107); Creatinine Clr Calc Pharmacy 109.6 ml/min; Est GFR (African American) 98.1; Est GFR (Non-African American) 84.6; Glucose 106 mg/dl (70-99); Potassium 3.6 mmol/L (3.5-5.1); Sodium 139 mmol/L (136-145)
[2020-06-20] MEDS ORDERED: SODIUM CHLORIDE 0.9% 1000ML 1,000 ML IV ONE (15:45)
[2020-06-20 15:47] LABS: Alanine Aminotransferase 30 U/L (12-78); Albumin Globulin Ratio 1.4 (0.9-2); Alkaline Phosphatase 84 U/L (45-117); Bilirubin,Total 0.4 mg/dl (0.2-1); Globulin 3.2 gm/dl (2.5-4.0); Total Protein 7.6 gm/dl (6.4-8.2)
--- NOTE | 2020-06-20 15:52 | Emergency Department Note ---
History of Present Illness General Chief complaint: Vomiting Stated complaint: VOMITING 9 DAYS STRAIGHT Time Seen by Provider: 06/20/20 15:01 History of Present Illness This patient is a 30-year-old female who presents ambulatory to the emergency department for evaluation of an ongoing throbbing headache and vomiting for approximately the last 9 days. She denies any fever. No changes in vision or mental status reported. The patient has been seen in the emergency department several times. A full work-up was performed including a CTA of the head and neck with no findings. She has taken Tylenol and Excedrin [id number] with no relief of her symptoms. She has had some diarrhea, which is not unusual as she has a history of IBS. No significant abdominal pain. The patient does smoke "medical marijuana". She has not however smoked marijuana due to her nausea in the last several days. Home Medications Medication Instructions Recorded Confirmed Type colestipol 1 g PO HS 06/12/20 06/20/20 History oxybutynin chloride 10 mg PO HS 06/12/20 06/20/20 History baclofen 20 mg PO TID 06/18/20 06/20/20 History methylprednisolone See Rx Instructions .ROUTE .COMPLEX 06/18/20 06/20/20 History Allergies Allergy/AdvReac Type Severity Reaction Status Date / Time nitrofurantoin Allergy Severe Anaphylaxis Verified 06/20/20 15:06 mometasone furoate AdvReac Severe Migraine Verified 06/20/20 15:06 Past Med/Surg History Medical History Anxiety Asthma Borderline personality disorder Bronchitis Cannabis abuse Depression GERD (gastroesophageal reflux disease) Irritable bowel syndrome Migraines PTSD (post-traumatic stress disorder) Surgical History History of cholecystectomy Hx laparoscopic cholecystectomy 09/2012 Family History Grandmother (Maternal) Heart disease Lung cancer Mother Asthma Social History Smoking Status: Never smoker Tobacco Type: Cigarettes Cigarettes Per Day: 5; Second Hand Exposure: Yes; Hx Alcohol Use: No Hx Substance Use: Yes Substance Use Type Other:: [id number] + methamphamines, marijuana and ecstacy, pt. denies use. Preferred Language: Indonesian Communication Ability: Effective Electric Motorman Required: No Beliefs That Will Affect Care: None marital status: Single Current Living Situation: Spouse Current Living Situation Comment: lives with and son current occupational status: employed Other Information That Helps Us Care for You: No Feels Safe at Home: Yes Safety Concerns: Feels Safe At This Time Assistive Devices: None Review of Systems A total of 10 systems reviewed and were otherwise negative Physical Exam Vital Signs Vital Signs - 24 hr 06/20/20 15:40 06/20/20 15:46 06/20/20 16:01 Pulse Rate - Lying Pulse Rate - Sitting Pulse Rate - Standing Pulse Rate 37 L 37 L 43 L Pulse Rate [Right Finger] Pulse Rate from SpO2 Sensor 36 L 44 L Respiratory Rate 12 14 14 Blood Pressure - Lying Blood Pressure - Sitting Blood Pressure- Standing Blood Pressure 141/65 H 155/79 H Blood Pressure [Right Arm] Blood Pressure Mean 90 104 Blood Pressure Mean [Right Arm] Pulse Oximetry 97 98 Oxygen Delivery Method 06/20/20 16:07 06/20/20 16:09 06/20/20 16:11 Pulse Rate - Lying Pulse Rate - Sitting Pulse Rate - Standing Pulse Rate 42 L 53 L Pulse Rate [Right Finger] Pulse Rate from SpO2 Sensor 43 L 55 L Respiratory Rate 14 19 Blood Pressure - Lying Blood Pressure - Sitting Blood Pressure- Standing Blood Pressure 161/77 H 162/77 H 145/80 H Blood Pressure [Right Arm] Blood Pressure Mean 105 105 101 Blood Pressure Mean [Right Arm] Pulse Oximetry 100 92 Oxygen Delivery Method 06/20/20 16:15 06/20/20 16:27 06/20/20 16:30 Pulse Rate - Lying 37 L Pulse Rate - Sitting 46 L Pulse Rate - Standing 48 L Pulse Rate 44 L 37 L Pulse Rate [Right Finger] Pulse Rate from SpO2 Sensor 47 L 40 L Respiratory Rate 17 15 Blood Pressure - Lying 161/77 H Blood Pressure - Sitting 162/77 H Blood Pressure- Standing 145/80 H Blood Pressure 118/66 131/65 Blood Pressure [Right Arm] Blood Pressure Mean 83 87 Blood Pressure Mean [Right Arm] Pulse Oximetry 97 98 Oxygen Delivery Method 06/20/20 17:00 06/20/20 17:20 06/20/20 17:32 Pulse Rate - Lying Pulse Rate - Sitting Pulse Rate - Standing Pulse Rate 44 L 47 L 45 L Pulse Rate [Right Finger] Pulse Rate from SpO2 Sensor 45 L 47 L 49 L Respiratory Rate 16 15 15 Blood Pressure - Lying Blood Pressure - Sitting Blood Pressure- Standing Blood Pressure 121/71 173/72 H Blood Pressure [Right Arm] Blood Pressure Mean 87 105 Blood Pressure Mean [Right Arm] Pulse Oximetry 97 97 97 Oxygen Delivery Method 06/20/20 17:40 06/20/20 17:55 06/20/20 18:00 Pulse Rate - Lying Pulse Rate - Sitting Pulse Rate - Standing Pulse Rate 51 L 46 L 42 L Pulse Rate [Right Finger] Pulse Rate from SpO2 Sensor 50 L 43 L 41 L Respiratory Rate 16 22 13 Blood Pressure - Lying Blood Pressure - Sitting Blood Pressure- Standing Blood Pressure 101/51 L 129/63 Blood Pressure [Right Arm] Blood Pressure Mean 67 85 Blood Pressure Mean [Right Arm] Pulse Oximetry 97 100 100 Oxygen Delivery Method 06/20/20 18:20 06/20/20 19:00 06/20/20 19:27 Pulse Rate - Lying Pulse Rate - Sitting Pulse Rate - Standing Pulse Rate 87 56 L Pulse Rate [Right Finger] 59 L Pulse Rate from SpO2 Sensor 88 55 L Respiratory Rate 15 18 20 Blood Pressure - Lying Blood Pressure - Sitting Blood Pressure- Standing Blood Pressure 124/53 L Blood Pressure [Right Arm] 124/53 L Blood Pressure Mean 76 Blood Pressure Mean [Right Arm] 76 Pulse Oximetry 99 98 97 Oxygen Delivery Method Room Air 06/20/20 20:25 06/20/20 21:54 Pulse Rate - Lying Pulse Rate - Sitting Pulse Rate - Standing Pulse Rate Pulse Rate [Right Finger] 61 56 L Pulse Rate from SpO2 Sensor Respiratory Rate 20 20 Blood Pressure - Lying Blood Pressure - Sitting Blood Pressure- Standing Blood Pressure Blood Pressure [Right Arm] 98/54 L 123/73 Blood Pressure Mean Blood Pressure Mean [Right Arm] 68 89 Pulse Oximetry 100 97 Oxygen Delivery Method Room Air Room Air Constitutional WD/WN, vitals as above Eyes EOM intact bilaterally ENMT external ear and nose normal, oropharynx normal Neck trachea midline Respiratory normal respiratory effort, lungs clear to auscultation Cardiovascular RRR, no murmur, no edema Gastrointestinal (Abdomen) normal bowel sounds, soft, nontender, no hepatosplenomegaly Musculoskeletal no cyanosis or clubbing, extremities motor strength 5/5 Skin no rashes, warm and dry Neurologic Alert and oriented x3. Cranial nerves grossly intact. Cerebellar function intact. No focal motor deficits. Psychiatric Acting appropriately Course Course Patient was seen and examined Vital signs including blood pressure were reviewed medications list was verified with patient Labs were obtained, and a saline lock was established An order was placed for continuous cardiac monitoring. The monitor shows a rate of sinus bradycardia with 45 rhythm." Case was discussed with my supervising physician The case was discussed with the hospitalist. They agreed to evaluate patient for possible inpatient management . Consultations Consultation #1: Hospitalist Administered Medications Aspirin (Aspirin 81 Mg Ectab) 81 mg PO QAM [facility] Stop: 07/21/20 08:59 Last Admin: 06/21/20 09:34 Dose: 81 mg Documented by: [id number] Baclofen (Baclofen 20 Mg Tab) 20 mg PO TID [facility] Stop: 07/21/20 08:59 Last Admin: 06/21/20 14:43 Dose: 20 mg Documented by: [id number] Admin: 06/21/20 09:33 Dose: 20 mg Documented by: [id number] Lactated Ringer's (Lr) 1,000 mls @ 60 mls/hr IV .[id number] ONE Stop: 06/21/20 16:21 Last Admin: 06/20/20 23:55 Dose: 60 mls/hr Documented by: [id number] Ketorolac Tromethamine (Ketorolac Tromethamine 15 Mg/Ml Vial) 15 mg IV Q4H PRN PRN Reason: Pain Stop: 06/25/20 22:09 Last Admin: 06/21/20 12:48 Dose: 15 mg Documented by: [id number] Miscellaneous (Remove Nicoderm Patch) 1 ea N/A DAILY@[id number] [facility] Stop: 07/21/20 08:58 Last Admin: 06/21/20 13:25 Dose: 1 ea Documented by: [id number] Nicotine (Nicotine 14 Mg/24 Hr Patch) 14 mg TD QAM [facility] Stop: 07/20/20 21:59 Last Admin: 06/21/20 13:26 Dose: 14 mg Documented by: [id number] Admin: 06/20/20 22:11 Dose: 14 mg Documented by: [id number] Discontinued Medications Aspirin (Aspirin 81 Mg Chew) 324 mg PO NOW STA Stop: 06/20/20 22:00 Last Admin: 06/20/20 22:11 Dose: 324 mg Documented by: [id number] Dexamethasone (Dexamethasone Sod Inj 4 Mg/Ml Vial) 10 mg IV NOW STA Stop: 06/20/20 22:11 Last Admin: 06/20/20 22:24 Dose: 10 mg Documented by: [id number] Diphenhydramine HCl (Diphenhydramine 50 Mg/Ml Vial) 25 mg IV NOW STA Stop: 06/20/20 19:40 Last Admin: 06/20/20 19:49 Dose: 25 mg Documented by: [id number] Enoxaparin Sodium (Enoxaparin Inj 40 Mg/0.4 Ml Syr) 40 mg SQ QAM [facility] Stop: 07/21/20 08:59 Last Admin: 06/21/20 09:34 Dose: 40 mg Documented by: [id number] Gadobutrol (Gadobutrol 65ml Vial) 10 ml IV ONCE ONE Stop: 06/21/20 12:02 Last Admin: 06/21/20 12:01 Dose: 10 ml Documented by: [id number] Haloperidol Lactate (Haloperidol Lactate 5 Mg/Ml 1 Ml Vial) 5 mg IV NOW STA Stop: 06/20/20 18:10 Last Admin: 06/20/20 18:24 Dose: 5 mg Documented by: [id number] Sodium Chloride (Nss 1000ml) 1,000 mls @ 999 mls/hr IV .Q1H1M ONE Stop: 06/20/20 16:45 Last Infusion: 06/20/20 18:31 Dose: 0 mls/hr Documented by: [id number] Admin: 06/20/20 15:50 Dose: 999 mls/hr Documented by: [id number] Thiamine HCl 100 mg/ Syringe 10 mls @ 2 mls/min IV NOW STA Stop: 06/20/20 18:40 Last Admin: 06/20/20 19:28 Dose: 2 mls/min Documented by: [id number] Parenteral Electrolytes (Normosol-R) 1,000 mls @ 999 mls/hr IV .Q1H1M ONE Stop: 06/20/20 22:09 Last Infusion: 06/20/20 22:58 Dose: 0 mls/hr Documented by: [id number] Admin: 06/20/20 21:53 Dose: 999 mls/hr Documented by: [id number] Magnesium Sulfate/Dextrose (Magnesium Sulfate / D5w) 1 gm in 100 mls @ 50 mls/hr IV ONE ONE Stop: 06/21/20 01:41 Last Infusion: 06/21/20 02:33 Dose: 0 mls/hr Documented by: [id number] Admin: 06/21/20 00:32 Dose: 50 mls/hr Documented by: [id number] Magnesium Oxide (Magnesium Oxide 400 Mg Tab) 400 mg PO DAILY ONE Stop: 06/21/20 12:01 Last Admin: 06/21/20 14:43 Dose: 400 mg Documented by: [id number] Naloxone HCl (Naloxone Hcl 0.4 Mg/1 Ml Vial/Carp) 0.4 mg IV NOW STA Stop: 06/20/20 16:33 Last Admin: 06/20/20 16:40 Dose: 0.4 mg Documented by: [id number] Ondansetron HCl (Ondansetron Inj 2 Mg/Ml 2 Ml Vial) 4 mg IV NOW STA Stop: 06/20/20 19:40 Last Admin: 06/20/20 19:49 Dose: 4 mg Documented by: [id number] Medical Decision Making Medical Records Attestation: I reviewed the patient's medical records. Home Medications Current Medication List: was personally reviewed by me Laboratory Data Attestation: I reviewed the patient's lab results. Result diagrams: 06/21/20 07:38 06/21/20 07:38 Lab Results 06/20/20 06/20/20 06/20/20 Range/Units 15:02 15:02 15:02 WBC 18.30 H (4.8-10.8) K/uL RBC 4.99 (4.2-5.4) M/uL Hgb 15.1 (12.0-16.0) g/dL Hct 43.6 (37-47) % MCV 87.4 (80-100) fL MCH 30.3 (25-34) pg MCHC 34.6 (32-36) g/dL RDW Std Deviation 46.5 H (36.4-46.3) fL RDW Coeff of Jazmín 14.5 (11.5-14.5) % Plt Count 293 (130-400) K/uL MPV 10.5 H (7.4-10.4) fL Immature Gran % (Auto) 0.3 % Neut % (Auto) 67.0 % Lymph % (Auto) 25.0 % [place] % (Auto) 7.0 % Eos % (Auto) 0.5 % Baso % (Auto) 0.2 % Neut # (Auto) 12.26 H (1.4-6.5) K/uL Lymph # (Auto) 4.58 H (1.2-3.4) K/uL [place] # (Auto) 1.28 H (0.11-0.59) K/uL Eos # (Auto) 0.09 (0-0.5) K/uL Baso # (Auto) 0.03 (0-0.2) K/uL Immature Gran # (Auto) 0.06 H (0.00-0.02) K/uL PT 9.8 (9.0-12.0) Seconds INR 1.0 (0.9-1.1) Sodium 139 (136-145) mmol/L Potassium 3.6 (3.5-5.1) mmol/L Chloride 108 H (98-107) mmol/L Carbon Dioxide 26 (21-32) mmol/L Anion Gap 5.0 (3-11) BUN 14 (7-18) mg/dl Creatinine 0.90 (0.6-1.2) mg/dl Est Cr Clr Drug Dosing 109.6 ml/min Est GFR ( Amer) 98.1 Est GFR (Non-Af Amer) 84.6 BUN/Creatinine Ratio 15.2 (10-20) Glucose 106 H (70-99) mg/dl Calcium 9.3 (8.5-10.1) mg/dl Magnesium (1.8-2.4) mg/dl Total Bilirubin 0.4 (0.2-1) mg/dl AST 24 (15-37) U/L ALT 30 (12-78) U/L Alkaline Phosphatase 84 (45-117) U/L Troponin I < 0.015 (0-0.045) ng/ml Total Protein 7.6 (6.4-8.2) gm/dl Albumin 4.4 (3.4-5.0) gm/dl Globulin 3.2 (2.5-4.0) gm/dl Albumin/Globulin Ratio 1.4 (0.9-2) Lipase (73-393) U/L TSH 0.634 (0.300-4.500) uIu/ml Urine Color Urine Appearance (Clear) Urine pH (4.5-7.5) Ur Specific [place] (1.000-1.030) Urine Protein (Negative) Urine Glucose (UA) (Negative) Urine Ketones (Negative) Urine Blood (Negative) Urine Nitrite (Negative) Urine Bilirubin (Negative) Urine Urobilinogen (Negative) Ur Leukocyte Esterase (Negative) Urine WBC (Auto) (0-5) /hpf Urine RBC (Auto) (0-4) /hpf U Hyaline Cast (Auto) (0-5) /lpf U Epithel Cells (Auto) (0-5) /lpf Urine Bacteria (Auto) (Negative) Urine Opiates Screen (Neg) Ur Methadone, Qual (Neg) Urine Barbiturates (Neg) Ur Phencyclidine (PCP) (Neg) U Amphetamin/Meth Scrn (Neg) MDMA (Ecstasy) Screen (Neg) U Benzodiazepines Scrn (Neg) Ur Cocaine Metabolite (Neg) U Marijuana (THC) Screen (Neg) COVID-19 Eval Order SARS-CoV-2 (PCR) (Negative) Influenza Type A (PCR) (Neg) Influenza Type B (PCR) (Neg) RSV (RT-PCR) (Neg) 06/20/20 06/20/20 06/20/20 Range/Units 16:20 16:20 19:30 WBC (4.8-10.8) K/uL RBC (4.2-5.4) M/uL Hgb (12.0-16.0) g/dL Hct (37-47) % MCV (80-100) fL MCH (25-34) pg MCHC (32-36) g/dL RDW Std Deviation (36.4-46.3) fL RDW Coeff of Jazmín (11.5-14.5) % Plt Count (130-400) K/uL MPV (7.4-10.4) fL Immature Gran % (Auto) % Neut % (Auto) % Lymph % (Auto) % [place] % (Auto) % Eos % (Auto) % Baso % (Auto) % Neut # (Auto) (1.4-6.5) K/uL Lymph # (Auto) (1.2-3.4) K/uL [place] # (Auto) (0.11-0.59) K/uL Eos # (Auto) (0-0.5) K/uL Baso # (Auto) (0-0.2) K/uL Immature Gran # (Auto) (0.00-0.02) K/uL PT (9.0-12.0) Seconds INR (0.9-1.1) Sodium (136-145) mmol/L Potassium (3.5-5.1) mmol/L Chloride (98-107) mmol/L Carbon Dioxide (21-32) mmol/L Anion Gap (3-11) BUN (7-18) mg/dl Creatinine (0.6-1.2) mg/dl Est Cr Clr Drug Dosing ml/min Est GFR ( Amer) Est GFR (Non-Af Amer) BUN/Creatinine Ratio (10-20) Glucose (70-99) mg/dl Calcium (8.5-10.1) mg/dl Magnesium (1.8-2.4) mg/dl Total Bilirubin (0.2-1) mg/dl AST (15-37) U/L ALT (12-78) U/L Alkaline Phosphatase (45-117) U/L Troponin I (0-0.045) ng/ml Total Protein (6.4-8.2) gm/dl Albumin (3.4-5.0) gm/dl Globulin (2.5-4.0) gm/dl Albumin/Globulin Ratio (0.9-2) Lipase (73-393) U/L TSH (0.300-4.500) uIu/ml Urine Color Yellow Urine Appearance Clear (Clear) Urine pH 7.0 (4.5-7.5) Ur Specific [place] 1.021 (1.000-1.030) Urine Protein Negative (Negative) Urine Glucose (UA) Negative (Negative) Urine Ketones Negative (Negative) Urine Blood 1+ H (Negative) Urine Nitrite Negative (Negative) Urine Bilirubin Negative (Negative) Urine Urobilinogen Negative (Negative) Ur Leukocyte Esterase Negative (Negative) Urine WBC (Auto) 1-5 (0-5) /hpf Urine RBC (Auto) 5-10 H (0-4) /hpf U Hyaline Cast (Auto) 1-5 (0-5) /lpf U Epithel Cells (Auto) >30 H (0-5) /lpf Urine Bacteria (Auto) Negative (Negative) Urine Opiates Screen Neg (Neg) Ur Methadone, Qual Neg (Neg) Urine Barbiturates Neg (Neg) Ur Phencyclidine (PCP) Neg (Neg) U Amphetamin/Meth Scrn Neg (Neg) MDMA (Ecstasy) Screen Neg (Neg) U Benzodiazepines Scrn Neg (Neg) Ur Cocaine Metabolite Neg (Neg) U Marijuana (THC) Screen Pos H (Neg) COVID-19 Eval Order [facility]Rsv at [facility] SARS-CoV-2 (PCR) (Negative) Influenza Type A (PCR) (Neg) Influenza Type B (PCR) (Neg) RSV (RT-PCR) (Neg) 06/20/20 06/20/20 Range/Units 19:30 19:51 WBC (4.8-10.8) K/uL RBC (4.2-5.4) M/uL Hgb (12.0-16.0) g/dL Hct (37-47) % MCV (80-100) fL MCH (25-34) pg MCHC (32-36) g/dL RDW Std Deviation (36.4-46.3) fL RDW Coeff of Jazmín (11.5-14.5) % Plt Count (130-400) K/uL MPV (7.4-10.4) fL Immature Gran % (Auto) % Neut % (Auto) % Lymph % (Auto) % [place] % (Auto) % Eos % (Auto) % Baso % (Auto) % Neut # (Auto) (1.4-6.5) K/uL Lymph # (Auto) (1.2-3.4) K/uL [place] # (Auto) (0.11-0.59) K/uL Eos # (Auto) (0-0.5) K/uL Baso # (Auto) (0-0.2) K/uL Immature Gran # (Auto) (0.00-0.02) K/uL PT (9.0-12.0) Seconds INR (0.9-1.1) Sodium (136-145) mmol/L Potassium (3.5-5.1) mmol/L Chloride (98-107) mmol/L Carbon Dioxide (21-32) mmol/L Anion Gap (3-11) BUN (7-18) mg/dl Creatinine (0.6-1.2) mg/dl Est Cr Clr Drug Dosing ml/min Est GFR ( Amer) Est GFR (Non-Af Amer) BUN/Creatinine Ratio (10-20) Glucose 96 (70-99) mg/dl Calcium (8.5-10.1) mg/dl Magnesium 1.7 L (1.8-2.4) mg/dl Total Bilirubin (0.2-1) mg/dl AST (15-37) U/L ALT (12-78) U/L Alkaline Phosphatase (45-117) U/L Troponin I (0-0.045) ng/ml Total Protein (6.4-8.2) gm/dl Albumin (3.4-5.0) gm/dl Globulin (2.5-4.0) gm/dl Albumin/Globulin Ratio (0.9-2) Lipase 86 (73-393) U/L TSH (0.300-4.500) uIu/ml Urine Color Urine Appearance (Clear) Urine pH (4.5-7.5) Ur Specific [place] (1.000-1.030) Urine Protein (Negative) Urine Glucose (UA) (Negative) Urine Ketones (Negative) Urine Blood (Negative) Urine Nitrite (Negative) Urine Bilirubin (Negative) Urine Urobilinogen (Negative) Ur Leukocyte Esterase (Negative) Urine WBC (Auto) (0-5) /hpf Urine RBC (Auto) (0-4) /hpf U Hyaline Cast (Auto) (0-5) /lpf U Epithel Cells (Auto) (0-5) /lpf Urine Bacteria (Auto) (Negative) Urine Opiates Screen (Neg) Ur Methadone, Qual (Neg) Urine Barbiturates (Neg) Ur Phencyclidine (PCP) (Neg) U Amphetamin/Meth Scrn (Neg) MDMA (Ecstasy) Screen (Neg) U Benzodiazepines Scrn (Neg) Ur Cocaine Metabolite (Neg) U Marijuana (THC) Screen (Neg) COVID-19 Eval Order SARS-CoV-2 (PCR) NEGATIVE (Negative) Influenza Type A (PCR) Negative (Neg) Influenza Type B (PCR) Negative (Neg) RSV (RT-PCR) Negative (Neg) Imaging Data Attestation: I personally reviewed and interpreted this imaging study as follows: MDM Narrative Differential diagnosis: Intracranial abnormality, dehydration, electrolyte abnormality, drug abuse, acute myocardial infarction, cardiac arrhythmia, anemia, thyroid abnormality, pneumothorax, pneumonia, bronchitis, pericarditis, among others were considered This patient is a 70-year-old female who presents emergency department complaining of an ongoing headache and vomiting that has been going on for approximately 9 days. On exam, the patient was bradycardic, however her blood pressure was stable. She has had significant imaging performed that has been unremarkable in the past. Labs reveal no leukocytosis. She is not anemic. She does not have any signs of infectious symptoms. No nuchal rigidity noted on exam. I was concerned about the patient being significantly bradycardic. This responded with Narcan, however the patient denies any opiate abuse. Unfortunately, after several rounds of antiemetics, the patient was still nauseous; therefore, hospitalist consultation was felt to be warranted. She will be evaluated for likely hospitalist intervention/inpatient therapy. Impression & Plan Headache, Intractable vomiting Discharge Plan Visit Data Chief Complaint: Vomiting Stated Complaint: VOMITING 9 DAYS STRAIGHT ED Provider: Dahiana Carrera ED Midlevel Provider: Cristal Pena Discharge Problem: Headache, Intractable vomiting Patient Disposition: Admitted As Inpatient Discharge Instructions Interventions: ED Discharge Assessment Last Done: 06/20/20 23:34
[2020-06-20 16:07] LABS: Prothrombin Time 9.8 Seconds (9.0-12.0)
--- NOTE | 2020-06-20 16:10 | XRay Report ---
XR chest 1V portable HISTORY: 30 years-old Female [place] acute headache with bradycardia COMPARISON: Chest radiographs 04/12/2019 TECHNIQUE: Portable AP view of the chest FINDINGS: Cardiomediastinal and hilar silhouettes are within normal limits. No pneumothorax, pleural effusion, airspace consolidation or overt pulmonary edema. The bones of the chest appear grossly intact. IMPRESSION: No acute process. ACT 112: Negative or not required by law. The above report was generated using voice recognition software. It may contain grammatical, syntax o r spelling errors. Electronically signed by: Jermain Heredia M.D. 06/20/2020 4:09 PM
[2020-06-20 16:15] LABS: Thyroid Stimulating Hormone 0.634 uIu/ml (0.300-4.500); Troponin I < 0.015 ng/ml (0-0.045)
[2020-06-20 16:28] LABS: Appearance Urine Clear (Clear); Bacteria Urine Automated Negative (Negative); Bilirubin Urine Negative (Negative); Blood Urine 1+ (Negative); Color Urine Yellow; Epithelial Cell Urine Auto >30 /lpf (0-5); Glucose Urine UA Negative (Negative); Ketones Urine Negative (Negative); Leukocyte Esterase Urine Negative (Negative); Nitrite Urine Negative (Negative); Protein Urine Negative (Negative); Specific Gravity Urine 1.021 (1.000-1.030); Urobilinogen Urine Negative (Negative)
[2020-06-20] MEDS ORDERED: NALOXONE HCL 0.4 MG/1 ML VIAL/CARP IV STA (16:32)
[2020-06-20 16:45] LABS: Amphetamines+Metham, Urine Neg (Neg); Barbiturates, Urine Neg (Neg); Benzodiazepine, Urine Neg (Neg); Cocaine, Urine Neg (Neg); MDMA (Ecstacy), Urine Neg (Neg); Methadone, Urine Neg (Neg); Opiate, Urine Neg (Neg); Phencyclidine, Urine Neg (Neg)
[2020-06-20] MEDS ORDERED: HALOPERIDOL LACTATE 5 MG/ML 1 ML VIAL IV STA (18:09)
[2020-06-20] MEDS ORDERED: THIAMINE HCL 100 MG in SYRINGE 9 ML IV STA (18:36)
--- NOTE | 2020-06-20 18:47 | CT Scan Report ---
CT head/brain wo con CLINICAL HISTORY: 30 years-old Female with headache vomiting. Acute headache with nausea and vomitin g TECHNIQUE: Multiple axial CT images of the head were obtained without contrast. A dose lowering tech nique was utilized adhering to the principles of ALARA. CT DOSE: 554.10 mGycm COMPARISON: Head CT 06/12/2020 FINDINGS: No acute intracranial hemorrhage, midline shift, intra-axial mass, hydrocephalus, territorial ischemi a or abnormal extra-axial collection. 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 The calvarium is intact. The paranasal sinuses, mastoid air cells, and middle ear cavities are clear . IMPRESSION: No acute intracranial abnormality. ACT 112: Negative or not required by law. The above report was generated using voice recognition software. It may contain grammatical, syntax o r spelling errors. Electronically signed by: Jermain Heredia M.D. 06/20/2020 6:46 PM
[2020-06-20] MEDS ORDERED: diphenhydrAMINE 50 MG/ML VIAL IV STA (19:39)
[2020-06-20] MEDS ORDERED: ONDANSETRON INJ 2 MG/ML 2 ML VIAL IV STA (19:39)
[2020-06-20 20:24] LABS: Influenza A virus by PCR Negative (Neg); Influenza B virus by PCR Negative (Neg); RSV by PCR Negative (Neg); SARS CoV2 RNA(COVID-19) InHosp NEGATIVE (Negative)
[2020-06-20] MEDS ORDERED: PROMETHAZINE HCL 12.5 MG in SODIUM CHLORIDE 0.9% 50 ML IV PRN (20:27)
[2020-06-20 20:36] LABS: Magnesium 1.7 mg/dl (1.8-2.4)
[2020-06-20] MEDS ORDERED: NORMOSOL-R 1,000 ML IV ONE (21:09)
[2020-06-20] MEDS ORDERED: ACETAMINOPHEN 325 MG TAB PO PRN (21:30)
--- NOTE | 2020-06-20 21:48 | History & Physical Report ---
Date of Service June 20, 2020 Assessment & Plan (1) Headache: (2) Nausea & vomiting: (3) Tobacco use: (4) Cannabis abuse: History, PE, medical history obtained by Magalie sanchez PA-C. Assessment and Plan per Dr Redman. History of Present Illness Primary Care Provider: Omar Haskins DO Pt is 30 y/o F with PMH bipolar disorder, asthma, migraine, tobacco use, medica l marijuana use for anxiety, IBS-D presented to ER with c/o SPRING x 9 days. Pt reports 9 days ago having BM and felt popping sensation to right side of head and had SPRING with nausea, vomiting, photophobia, phonophobia since. Right sided headache has continued and is described as stabbing/throbbing type pain. Also c/o right sided posterior neck pain radiating into back and aggravated with ROM head and neck. Denies shoulder pain, extremity paresthesias or weakness. Denies fever/chills. Reports intermittent blurry vision from right eye. Had ER visit at [facility] twice on 06/12/20, once at [facility] ER on 06/15/20, and [facility] ER on 06/18/20. Had negative CTA head and neck. Negative Lyme. Was started on baclofen, medrol dose pack for suspected cervical spasms without significant relief. Denies injury/trauma. 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 In past reports SPRING's that were diffuse aching type pain without any associated N/V, photophobia or phonophobia. These SPRING's were related to her OCP's that were discontinued and had resolution of recurrent SPRING's until 9 days ago. Reports has not been using her medical marijuana for the past 5-7 days. reports chronic diarrhea secondary to IBS-D and uses colestipol once daily. Denies any increased diarrhea. Denies fever/chills, diaphoresis, hematemesis, melena, hematochezia, dizziness, syncope, vision loss, CP, SOB, orthopnea, palpitations, cough, sore throat, choking, otalgia, rhinorrhea, abdominal pain, paresthesias, weakness, extremity weakness, extremity edema, rashes, urinary symptoms. Allergies Allergy/AdvReac Type Severity Reaction Status Date / Time nitrofurantoin Allergy Severe Anaphylaxis Verified 06/20/20 15:06 mometasone furoate AdvReac Severe Migraine Verified 06/20/20 15:06 Home Medications Medication Instructions Recorded Confirmed Type colestipol 1 g PO HS 06/12/20 06/20/20 History oxybutynin chloride 10 mg PO HS 06/12/20 06/20/20 History baclofen 20 mg PO TID 06/18/20 06/20/20 History methylprednisolone See Rx Instructions .ROUTE .COMPLEX 06/18/20 06/20/20 History Past Med/Surg History Medical History (Updated 06/20/20 @ 22:05 by Magalie Chin PA-C) Anxiety Asthma Borderline personality disorder Bronchitis Cannabis abuse Depression GERD (gastroesophageal reflux disease) Irritable bowel syndrome Migraines PTSD (post-traumatic stress disorder) Surgical History History of cholecystectomy Hx laparoscopic cholecystectomy 09/2012 Family History Grandmother (Maternal) Heart disease Lung cancer Mother Asthma Social History Smoking Status: Never smoker Tobacco Type: Cigarettes Cigarettes Per Day: 5; Second Hand Exposure: Yes; Hx Alcohol Use: No Hx Substance Use: Yes Substance Use Type Other:: [id number] + methamphamines, marijuana and ecstacy, pt. denies use. Preferred Language: Azerbaijani Communication Ability: Effective Medical Practice Administrator Required: No Beliefs That Will Affect Care: None marital status: Single Current Living Situation: Spouse Current Living Situation Comment: lives with and son current occupational status: employed Other Information That Helps Us Care for You: No Feels Safe at Home: Yes Safety Concerns: Feels Safe At This Time Assistive Devices: None Review of Systems Review of Systems: All systems reviewed & are unremarkable except as noted in HPI & below Physical Exam Physical Exam: General: +photophobia, resting in bed, no acute distress, obese Head: normocephalic, atraumatic Eyes: PERRL, EOM's intact, conjunctiva non-injected, anicteric ENT: normal inspection external ears, nose, mucous membranes moist Neck: supple, trachea midline, +tenderness to palpation right paraspinous muscles, +tenderness to right side of neck with rotation of head, worse with rotation of head to left Lungs: clear, no respiratory distress, no wheezing/rhonchi/rales CV: RRR, no murmur, no pretibial edema Abd: normal BS, soft, non-tender Ext: no cyanosis, no calf tenderness Neuro: A&O x 3, no focal deficits noted, normal affect Skin: warm, dry Results & Data Results & Data ([facility]) Vital Signs (Past 12 Hours) Vital Signs Temp Pulse Pulse Resp BP BP Pulse Ox 06/20/20 20:25 61 20 98/54 L 100 06/20/20 19:27 59 L 20 124/53 L 97 06/20/20 19:00 56 L 18 124/53 L 98 06/20/20 18:20 87 15 99 06/20/20 18:00 42 L 13 129/63 100 06/20/20 17:55 46 L 22 101/51 L 100 06/20/20 17:40 51 L 16 97 06/20/20 17:32 45 L 15 173/72 H 97 06/20/20 17:20 47 L 15 97 06/20/20 17:00 44 L 16 121/71 97 06/20/20 16:30 37 L 15 131/65 98 06/20/20 16:15 44 L 17 118/66 97 06/20/20 16:11 145/80 H 06/20/20 16:09 53 L 19 162/77 H 92 06/20/20 16:07 42 L 14 161/77 H 100 06/20/20 16:01 43 L 14 155/79 H 98 06/20/20 15:46 37 L 14 141/65 H 97 06/20/20 15:40 37 L 12 06/20/20 15:11 33 L 38 L 4 L 135/61 135/61 97 06/20/20 13:26 36 C L 59 L 18 147/68 H 99 Laboratory Results Short CBC 06/20/20 Range/Units 15:02 WBC 18.30 H (4.8-10.8) K/uL Hgb 15.1 (12.0-16.0) g/dL Hct 43.6 (37-47) % Plt Count 293 (130-400) K/uL BMP 06/20/20 06/20/20 15:02 19:51 Sodium 139 Potassium 3.6 Chloride 108 H Carbon Dioxide 26 BUN 14 Creatinine 0.90 Glucose 106 H 96 Calcium 9.3 Cardiac Enzymes 06/20/20 Range/Units 15:02 Troponin I < 0.015 (0-0.045) ng/ml Liver Function 06/20/20 Range/Units 15:02 Total Bilirubin 0.4 (0.2-1) mg/dl AST 24 (15-37) U/L ALT 30 (12-78) U/L Alkaline Phosphatase 84 (45-117) U/L Albumin 4.4 (3.4-5.0) gm/dl Urine 06/20/20 Range/Units 16:20 Urine Color Yellow Urine Appearance Clear (Clear) Urine pH 7.0 (4.5-7.5) Ur Specific [place] 1.021 (1.000-1.030) Urine Protein Negative (Negative) Urine Glucose (UA) Negative (Negative) Diagnostic Findings Head CT: IMPRESSION: No acute intracranial abnormality. CXR: IMPRESSION: No acute process. Supervising Physician Co-Signing Physician Notes IM ATTENDING : Patient seen and examined. History obtained from patient and records. Preceding documentation by Ms. Magalie Chin PA-C reviewed. FINAL ASSESSMENT AND PLAN as follows : Intractable headache Protracted symptoms, failed outpatient treatment hx migraine as per records Atypical migraine given transient blurred vision on the right rule out TIA Nausea, emesis secondary to illness Cannabis use possibly contributory Mood disorder, at baseline Hx ADD/borderline personality disorder Fibromyalgia as per records Bronchial asthma, well controlled Ongoing tobacco abuse OBS Medical telemetry Decadron 1 dose for intractable migraine Analgesia, judicious narcotic use Neurochecks Stroke work-up consisting of MRI brain, carotid Dopplers, TTE Aspirin for stroke prevention Neurology consult Re: Intractable headache, transient blurred vision right Clear liquids for now, antiemetics as needed Consider abdominal imaging if with persistent emesis Nicotine patch DVT prophylaxis per Lovenox subcu Full code Text document was generated using [employer] voice recognition software. It may contain grammatical or spelling errors. Kindly contact undersigned for clarification of any documentation item in question.
[2020-06-20] MEDS ORDERED: ASPIRIN 81 MG CHEW PO STA (21:59)
[2020-06-20] MEDS ORDERED: IBUPROFEN 200 MG TAB PO PRN (22:10)
[2020-06-20] MEDS ORDERED: DEXAMETHASONE SOD INJ 4 MG/ML VIAL IV STA (22:10)
[2020-06-20] MEDS ORDERED: KETOROLAC TROMETHAMINE 15 MG/ML VIAL IV PRN (22:10)
[2020-06-20] MEDS: NICOTINE 14 MG/24 HR PATCH TD SCH (22:11)
[2020-06-20] MEDS ORDERED: LACTATED RINGER'S 1,000 ML IV ONE (23:42)
[2020-06-20] MEDS ORDERED: MAGNESIUM SULFATE / D5W 1 GM/100 ML BAG IV ONE (23:42)
--- NOTE | 2020-06-21 07:25 | Ultrasound Report ---
BILATERAL CAROTID DOPPLER STUDY HISTORY: Transient ischemic attack. COMPARISON: Neck CTA 06/12/2020. TECHNIQUE: Real-time, grayscale, and color Doppler sonography of the carotid arteries was performed. Imaging reviewed in the transverse and longitudinal planes. All measurements were calculated based on NASCET criteria. FINDINGS: Antegrade flow is seen in the bilateral vertebral arteries. The brachial pressures are hemodynamically similar. The peak systolic velocity within the right ICA is 85 cm/s. The right systolic ratio is 0.8. The peak systolic velocity within the left ICA is 104 cm/s. The left systolic ratio is 1.1. IMPRESSION: No hemodynamically significant stenosis seen within the carotid arteries. ACT 112: Negative or not required by law. Electronically signed by: Rigo Cancino M.D. 06/21/2020 7:24 AM
[2020-06-21 08:58] LABS: Basophils # (auto) 0.01 K/uL (0-0.2); Basophils % (auto) 0.1 %; Eosinophils # (auto) 0.01 K/uL (0-0.5); Eosinophils % (auto) 0.1 %; Hematocrit (blood only) 41.6 % (37-47); Hemoglobin 14.5 g/dL (12.0-16.0); Immature Granulocytes # (auto) 0.04 K/uL (0.00-0.02); Immature Granulocytes % (auto) 0.3 %; Lymphocytes # (auto) 2.99 K/uL (1.2-3.4); Lymphocytes % (auto) 22.4 %; Mean Corpuscular Hemoglobin 30.1 pg (25-34); Mean Corpuscular Hgb Conc 34.9 g/dL (32-36); Mean Corpuscular Volume 86.3 fL (80-100); Mean Platelet Volume 10.8 fL (7.4-10.4); Monocytes # (auto) 0.36 K/uL (0.11-0.59); Monocytes % (auto) 2.7 %; Neutrophils # (auto) 9.91 K/uL (1.4-6.5); Neutrophils % (auto) 74.4 %; Platelet Count 271 K/uL (130-400); RDW Coefficient of Variation 14.2 % (11.5-14.5); RDW Standard Deviation 45.1 fL (36.4-46.3); Red Blood Count 4.82 M/uL (4.2-5.4); White Blood Count 13.32 K/uL (4.8-10.8)
[2020-06-21] MEDS ORDERED: ENOXAPARIN INJ 40 MG/0.4 ML SYR SQ SCH (09:00)
--- NOTE | 2020-06-21 09:12 | Hospitalist Progress Note ---
Date of Service June 21, 2020 Assessment & Plan (1) Headache: (2) Nausea & vomiting: (3) Tobacco use: (4) Cannabis abuse: Atypical Migraine-Await Neuro eval, MRI/MRA-Pending, Carotids are negative, obs DC later today if adler negative ROS-No Headache, No Visual Changes, No Nausea, No Vomiting, No Fever, No Chills, No Neck Pain or Stiffness, No Chest Pain, No Palpitations, No SOB, No MORALES, No Cough, No Sputum, No Wheezing, No Abdominal Pain, No Diarrhea, No Hematemesis, No Hemoptysis, No Unexpected Weight Loss, No Flank pain, No Melena, No Hematochezia, No Frequency, No Urgency, No Burning, No Hematuria, No Rashes, No Diaphoresis. Appetite is Normal Physical Exam Gen-AAO x 3, NAD, Afebrile Head-NCAT, EOMI, PERRLA, Anicteric Sclera, No Posterior Pharyngeal Erythema Neck-Supple, No JVD, No Thyromegaly, No Masses, No LAD, No Bruits Lungs-Clear to Auscultation Bilaterally, No Rales, No Rhonchi, No Wheezing, No Crepitus Chest-No S4, +S1, +S2, No S3, No Murmurs, No Rubs, No Gallops, No Ectopy Abdomen-Soft, Bowel Sounds Present, Non Tender, Non Distended, No Hepatomegaly, No Splenomegaly, No Palpable Masses, No Rebound, No Rigidity, No Guarding Musculoskeletal-Full Range of Motion Bilaterally, No CVAT Extremities-No Cyanosis, No Clubbing, No Edema Nuero-Cranial Nerves II-XII grossly intact, Motor WNL, DTRs WNL, Strength WNL, Non Focal Psych-Normal Mood Admission and Anticipated Discharge Date Admission Date: June 20, 2020 Results & Data Results & Data ([facility]) Vital Signs (Past 12 Hours) Vital Signs Temp Pulse Pulse Resp BP Pulse Ox 06/21/20 08:02 36.7 C 68 18 129/84 96 06/21/20 07:11 73 06/21/20 04:20 37.0 C 57 L 18 120/62 98 06/21/20 01:49 56 L 06/20/20 23:50 36.8 C 94 H 20 112/57 L 94 06/20/20 23:23 52 L 20 162/72 H 98 06/20/20 22:34 46 L 20 123/64 98 06/20/20 21:54 56 L 20 123/73 97
[2020-06-21 09:21] LABS: BUN Creatinine Ratio 10.9 (10-20); Calcium 8.6 mg/dl (8.5-10.1); Creatinine Clr Calc Pharmacy 144.2 ml/min; Est GFR (African American) 134.1; Est GFR (Non-African American) 115.7; Magnesium 2.2 mg/dl (1.8-2.4); Potassium 3.9 mmol/L (3.5-5.1)
[2020-06-21] MEDS: BACLOFEN 20 MG TAB PO SCH ×3 (09:33→20:13)
[2020-06-21] MEDS: ASPIRIN 81 MG ECTAB PO SCH (09:34)
[2020-06-21] MEDS ORDERED: MAGNESIUM OXIDE 400 MG TAB PO ONE (12:00)
[2020-06-21] MEDS ORDERED: GADOBUTROL 65ML VIAL IV ONE (12:01)
--- NOTE | 2020-06-21 13:15 | Electrocardiogram Report ---
Test Reason : Blood Pressure : / mmHG Vent. Rate : 041 BPM Atrial Rate : 041 BPM P-R Int : 134 ms QRS Dur : 092 ms QT Int : 502 ms P-R-T Axes : 054 079 083 degrees QTc Int : 414 ms Marked sinus bradycardia Abnormal ECG When compared with ECG of 03-MAR-2020 13:30, Vent. rate has decreased BY 35 BPM Nonspecific T wave abnormality no longer evident in Anterior leads Confirmed by Yaakov Matos ([id number]) on 06/21/2020 1:14:48 PM Referred By: REFERRED SELF Confirmed By:Yaakov Matos
--- NOTE | 2020-06-21 13:15 | Electrocardiogram Report ---
Test Reason : Blood Pressure : / mmHG Vent. Rate : 039 BPM Atrial Rate : 039 BPM P-R Int : 138 ms QRS Dur : 094 ms QT Int : 508 ms P-R-T Axes : 053 074 081 degrees QTc Int : 408 ms Marked sinus bradycardia with marked sinus arrhythmia Abnormal ECG When compared with ECG of 20-JUN-2020 15:19, (unconfirmed) No significant change was found Confirmed by Yaakov Matos ([id number]) on 06/21/2020 1:14:54 PM Referred By: REFERRED SELF Confirmed By:Yaakov Matos
[2020-06-21] MEDS: NICOTINE 14 MG/24 HR PATCH TD SCH (13:26)
--- NOTE | 2020-06-21 14:16 | Magnetic Resonance Report ---
Brain MRI WITH AND WITHOUT CONTRAST HISTORY: Intractable headache. TECHNIQUE: Multiplanar multisequence MRI of the brain was performed both before and after the intrave nous administration of contrast. COMPARISON STUDY: Head CT 06/20/2020. Brain MRI 03/13/2015. FINDINGS: No areas of restricted diffusion to suggest acute infarction. 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 The remaining midline structures are intact. There is no hematoma or midline shift. The ventricles are normal in size. The major vascular flow-voids at the skull base are well-maintained. T he orbits unremarkable. Paranasal sinuses and mastoid air cells are clear. Postcontrast sequences ari w no areas of abnormal enhancement. IMPRESSION: 1. No acute intracranial abnormality. 2. 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 ACT 112: Negative or not required by law. Electronically signed by: Rigo Cancino M.D. 06/21/2020 2:15 PM
--- NOTE | 2020-06-21 14:18 | Magnetic Resonance Report ---
Brain MRA HISTORY: transient blurred vision R TECHNIQUE: 3-D [id number] MRA of the brain was performed without contrast. COMPARISON STUDY: None. FINDINGS: Visualized intracranial internal carotid arteries, distal vertebral arteries, and basilar a rtery are widely patent. There is no significant stenosis, occlusion, or aneurysm seen within the bashir ateral ACAs, MCAs, or paint stockman. 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 IMPRESSION: No significant stenosis, occlusion, or aneurysm within the [place]. ACT 112: Negative or not required by law. Electronically signed by: Rigo Cancino M.D. 06/21/2020 2:17 PM
--- NOTE | 2020-06-21 14:22 | Consultation Report ---
DATE OF CONSULTATION: 06/21/2020 REASON FOR CONSULTATION: New onset headache. HISTORY OF PRESENT ILLNESS: The patient is a 30-year-old right-handed female with a history of anxiety, asthma, kidney stones, borderline personality disorder, reflux, PTSD, and migraines. On this background, the patient was in her usual state of health approximately 9 days ago, she was seated on the toilet and when she Valsalved and had the sudden onset of the worst headache of her life, which was right temporal by occipital bifacial throbbing with nausea, vomiting, photophobia, phonophobia and neck stiffness. There were no neurologic symptoms at least initially, although transiently in the course of this headache she has had some scintillating visual phenomenon and some blurred vision, which she believes to be binocular. The headache has persisted waxed and waned, but for the most part is unchanged. It is worse with Valsalva maneuver. She was seen at multiple hospitals including [place] and [facility] where she has had a CT of the head and CTA of the head and neck, which are noncontributory. She has not had an MRI or a lumbar puncture. She has been treated variably with oral steroids, which she is currently finishing and was discharged from one of the hospitalizations with baclofen on an as needed basis. She has not otherwise been ill, although she has noted some chills and sweats, but no fever. She has not had any nasal discharge, sore throat, cough, anosmia, ageusia. There has been no head or neck trauma. She did have headaches greater than 5 years ago associated with estrogen containing control. These resolved with cessation of estrogen containing control. She rarely gets mild throbbing headaches. No prior history of exertional headaches. No family history of intracranial aneurysm. On our admission, the patient had Toradol, promethazine, Haldol, fluids and Decadron. She is written for p.r.n. Toradol and tramadol. PAST MEDICAL HISTORY: As above. The patient has kidney stones. PAST SURGICAL HISTORY: Cholecystectomy. SOCIAL HISTORY: Never smoked, does not drink alcohol. The patient takes cannabis for chronic bowel pain. FAMILY HISTORY: As above. 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 HOME MEDICATIONS: Were baclofen 20 t.i.d., colestipol. She was on a prednisone taper and oxybutynin. ALLERGIES: INCLUDE NITROFURANTOIN AND MOMETASONE. LABORATORY DATA: On admission to the hospital her white count was 18.3, likely related to prednisone use. Neutrophils 12.6, which is elevated, lymphocytes mildly elevated as well. PT 9.8, INR 1.0. Electrolytes notable for a chloride of 108, magnesium of 1.7. Urine test has not yet been obtained, although was negative on 06/17/2020. Urinalysis notable for 1+ blood, 5-10 red cells, epithelial cells greater than 30. CT of the head, which I have reviewed was unremarkable. The patient has had a CTA of the head and neck on 06/12/2020 and they are unremarkable as well and I have reviewed those images. PHYSICAL EXAMINATION: VITAL SIGNS: BP 178/101, pulse 44, temperature 36.7, O2 sat 96%, In general blood pressures have otherwise been running in the 120 systolic over 50s diastolic. GENERAL: The patient is awake and alert and oriented x3 and is in no distress. NECK: Supple. There is some mild tenderness of palpation in the right maxillary region. No tenderness of the frontal sinus region. No jaw click. NEUROLOGIC: Pupils are equal, round, reactive to light. The optic nerves are unremarkable. There is no papilledema. There is normal thompson, motility, facial sensation and facial symmetry. There is normal bulk and tone. Full strength, no drift. Normal rapid alternating movements. Symmetric reflexes, downgoing toes. [id number] and [id number] are normal. Sensation is intact to light touch and temperature and vibration sense. IMPRESSION: Status migrainosus. This headache began as the sudden onset worst headache of life with Valsalva maneuver. It is reassuring that the CT and CTA did not show any hemorrhage or aneurysm. We will treat the headache symptomatically today. Obtain an MRI of the brain. I see that an MRA was ordered. If the headache is not improving, I will likely perform a lumbar puncture tomorrow. I have deferred this to tomorrow given that the patient looks well and that she received Lovenox this morning. PLAN: I have written an order for riboflavin and magnesium. I have written an order for Imitrex to be taken, one at onset, may repeat in 2 hours, maximum of 2 doses in 24 hours and I have started her on gabapentin. I have ordered a urine test and if needed, we could treat her with some Depakote. Otherwise, I believe that she is receiving Toradol, tramadol, has received an antiemetic, fluids and Decadron. I will follow with you.
[2020-06-21] MEDS: GABAPENTIN 300 MG CAP PO SCH (15:59)
[2020-06-21 16:15] LABS: Pregnancy Test, Urine Negative (Negative)
[2020-06-21] MEDS ORDERED: OXYBUTYNIN CHLORIDE XL 5 MG TABCR PO SCH (21:00)
[2020-06-21] MEDS ORDERED: COLESTIPOL HCL 1 GM TAB PO SCH (22:00)
[2020-06-21] MEDS: SUMAtriptan succinate 50 MG TAB PO PRN (22:41)
[2020-06-22] MEDS: traMADol HCL 50 MG TABLET PO PRN ×2 (02:48→08:51)
[2020-06-22] MEDS: GABAPENTIN 300 MG CAP PO SCH (08:53)
[2020-06-22] MEDS: ASPIRIN 81 MG ECTAB PO SCH (08:53)
[2020-06-22] MEDS: BACLOFEN 20 MG TAB PO SCH (08:54)
[2020-06-22] MEDS ORDERED: VITAMIN B COMPLEX TAB PO SCH (09:00)
[2020-06-22] MEDS: SUMAtriptan succinate 50 MG TAB PO PRN (09:59)
[2020-06-22] MEDS: NICOTINE 14 MG/24 HR PATCH TD SCH (09:59)
--- NOTE | 2020-06-22 10:14 | Hospitalist Progress Note ---
Date of Service June 22, 2020 Assessment & Plan (1) Headache: (2) Nausea & vomiting: (3) Tobacco use: (4) Cannabis abuse: Status Migrainous, LP today for Persistent SPRING, Neuro on case, Labs Checked ROS-Still c Headache, No New Visual Changes, No Nausea, No Vomiting, No Fever, No Chills, No Neck Pain or Stiffness, No Chest Pain, No Palpitations, No SOB, No MORALES, No Cough, No Sputum, No Wheezing, No Abdominal Pain, No Diarrhea, No Hematemesis, No Hemoptysis, No Unexpected Weight Loss, No Flank pain, No Melena, No Hematochezia, No Frequency, No Urgency, No Burning, No Hematuria, No Rashes, No Diaphoresis. Appetite is Normal Physical Exam Gen-AAO x 3, NAD, Afebrile Head-NCAT, EOMI, PERRLA, Anicteric Sclera, No Posterior Pharyngeal Erythema Neck-Supple, No JVD, No Thyromegaly, No Masses, No LAD, No Bruits Lungs-Clear to Auscultation Bilaterally, No Rales, No Rhonchi, No Wheezing, No Crepitus Chest-No S4, +S1, +S2, No S3, No Murmurs, No Rubs, No Gallops, No Ectopy Abdomen-Soft, Bowel Sounds Present, Non Tender, Non Distended, No Hepatomegaly, No Splenomegaly, No Palpable Masses, No Rebound, No Rigidity, No Guarding Musculoskeletal-Full Range of Motion Bilaterally, No CVAT Extremities-No Cyanosis, No Clubbing, No Edema Nuero-Cranial Nerves II-XII grossly intact, Motor WNL, DTRs WNL, Strength WNL, Non Focal Psych-Normal Mood Admission and Anticipated Discharge Date Admission Date: June 21, 2020 Results & Data Results & Data ([facility]) Vital Signs (Past 12 Hours) Vital Signs Temp Pulse Resp BP Pulse Ox 06/22/20 08:29 36.9 C 86 18 148/85 H 100
[2020-06-22] MEDS ORDERED: SUMAtriptan succinate 6 MG/0.5 ML VIAL SQ PRN (12:39)
--- NOTE | 2020-06-22 13:24 | Discharge Summary ---
Date of Service June 22, 2020 Admission HPI Per Admitting Provider Pt is 30 y/o F with PMH bipolar disorder, asthma, migraine, tobacco use, medical marijuana use for anxiety, IBS-D presented to ER with c/o SPRING x 9 days. Pt reports 9 days ago having BM and felt popping sensation to right side of head and had SPRING with nausea, vomiting, photophobia, phonophobia since. Right sided headache has continued and is described as stabbing/throbbing type pain. Also c/o right sided posterior neck pain radiating into back and aggravated with ROM head and neck. Denies shoulder pain, extremity paresthesias or weakness. Denies fever/chills. Reports intermittent blurry vision from right eye. Had ER visit at [facility] twice on 06/12/20, once at [facility] ER on 06/15/20, and [facility] ER on 06/18/20. Had negative CTA head and neck. Negative Lyme. Was started on baclofen, medrol dose pack for suspected cervical spasms without significant relief. Denies injury/trauma. 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 In past reports SPRING's that were diffuse aching type pain without any associated N/V, photophobia or phonophobia. These SPRING's were related to her OCP's that were discontinued and had resolution of recurrent SPRING's until 9 days ago. Reports has not been using her medical marijuana for the past 5-7 days. reports chronic diarrhea secondary to IBS-D and uses colestipol once daily. Denies any increased diarrhea. Denies fever/chills, diaphoresis, hematemesis, melena, hematochezia, dizziness, syncope, vision loss, CP, SOB, orthopnea, palpitations, cough, sore throat, choking, otalgia, rhinorrhea, abdominal pain, paresthesias, weakness, extremity weakness, extremity edema, rashes, urinary symptoms. Admission Exam Per Admitting Provider General: +photophobia, resting in bed, no acute distress, obese Head: normocephalic, atraumatic Eyes: PERRL, EOM's intact, conjunctiva non-injected, anicteric ENT: normal inspection external ears, nose, mucous membranes moist Neck: supple, trachea midline, +tenderness to palpation right paraspinous muscles, +tenderness to right side of neck with rotation of head, worse with rotation of head to left Lungs: clear, no respiratory distress, no wheezing/rhonchi/rales CV: RRR, no murmur, no pretibial edema Abd: normal BS, soft, non-tender Ext: no cyanosis, no calf tenderness Neuro: A&O x 3, no focal deficits noted, normal affect Skin: warm, dry Principal Diagnosis (1) Headache: (2) Nausea & vomiting: (3) Tobacco use: (4) Cannabis abuse: Discharge Exam See below Discharge Data Allergies Allergy/AdvReac Type Severity Reaction Status Date / Time nitrofurantoin Allergy Severe Anaphylaxis Verified 06/20/20 15:06 mometasone furoate AdvReac Severe Migraine Verified 06/20/20 15:06 Consultations 06/20/20 20:13 ED Decision to Admit Stat 06/20/20 23:42 Consult Neurology Routine Ordered Studies 06/20/20 18:09 CT head/brain wo con Stat 06/21/20 00:46 US carotid doppler BI Routine 06/21/20 09:00 MR angio head wo con Routine MR brain wo/w con Routine Current Diagnoses Cannabis abuse, uncomplicated (06/21/20) Nausea with vomiting, unspecified (06/21/20) Headache, unspecified (06/21/20) Tobacco use (06/21/20) Allergies nitrofurantoin Allergy (Severe, Verified 06/20/20 15:06) Anaphylaxis mometasone furoate Adverse Reaction (Severe, Verified 06/20/20 15:06) Migraine Height/Weight/Isolation Height 5 ft 7 in Weight 99.9 kg Chemistry 06/20/20 06/20/20 06/21/20 15:02 19:51 07:38 Sodium 139 135 L Potassium 3.6 3.9 Chloride 108 H 107 Carbon Dioxide 26 22 Anion Gap 5.0 7.0 BUN 14 7 D Creatinine 0.90 0.68 Glucose 106 H 96 107 H Urinalysis 06/20/20 16:20 Urine Color Yellow Urine Appearance Clear Urine pH 7.0 Ur Specific [place] 1.021 Urine Protein Negative Urine Glucose (UA) Negative Urine Ketones Negative Urine Blood 1+ H Urine Nitrite Negative Urine Bilirubin Negative Hospital Course (1) Headache: (2) Nausea & vomiting: (3) Tobacco use: (4) Cannabis abuse: Status Migrainous, Refused LP today for Persistent SPRING, Neuro on case, DC home today on Imitrex and Gabapentin ROS-Still c Headache, No New Visual Changes, No Nausea, No Vomiting, No Fever, No Chills, No Neck Pain or Stiffness, No Chest Pain, No Palpitations, No SOB, No MORALES, No Cough, No Sputum, No Wheezing, No Abdominal Pain, No Diarrhea, No Hematemesis, No Hemoptysis, No Unexpected Weight Loss, No Flank pain, No Melena, No Hematochezia, No Frequency, No Urgency, No Burning, No Hematuria, No Rashes, No Diaphoresis. Appetite is Normal Physical Exam Gen-AAO x 3, NAD, Afebrile Head-NCAT, EOMI, PERRLA, Anicteric Sclera, No Posterior Pharyngeal Erythema Neck-Supple, No JVD, No Thyromegaly, No Masses, No LAD, No Bruits Lungs-Clear to Auscultation Bilaterally, No Rales, No Rhonchi, No Wheezing, No Crepitus Chest-No S4, +S1, +S2, No S3, No Murmurs, No Rubs, No Gallops, No Ectopy Abdomen-Soft, Bowel Sounds Present, Non Tender, Non Distended, No Hepatomegaly, No Splenomegaly, No Palpable Masses, No Rebound, No Rigidity, No Guarding Musculoskeletal-Full Range of Motion Bilaterally, No CVAT Extremities-No Cyanosis, No Clubbing, No Edema Nuero-Cranial Nerves II-XII grossly intact, Motor WNL, DTRs WNL, Strength WNL, Non Focal Psych-Normal Mood Total Time Total Time Spent Total Time Spent (In Minutes): 45 mins Total Time Includes: Examination of the Patient, Discharge Planning, Medication Reconciliation and Communication With Other Providers Discharge Plan Discharge Items Patient Disposition: Home - Self-Care Reason For Visit: SPRING, TRANSIENT BLURRED VISION R Discharge Diagnosis: (1) Headache: (2) Nausea & vomiting: (3) Tobacco use: (4) Cannabis abuse: Condition on Discharge: Good Activity: Resume your previous activity Lifting: Gradually increase as tolerated Bathing: No limitations Sexual Activity: When tolerated Driving/Machine Use: No limitations Weightbearing: Full weightbearing Non-emergency contact: Primary Care Provider and Neurologist Call non-emergency contact if: you have any medication questions Follow-up/Referrals: Sara Fulton MD [Physician] - (2-3 weeks) Omar Haskins DO [Primary Care Provider] - Diet: Regular Addtl Attending Provider Instructions: None Pending Studies at Discharge: No Stand-Alone Forms: My [facility] MOMENTFACE SRO, Smoking Cessation Medications and DC Order Prescriptions: New sumatriptan succinate 50 mg Tablet 50 mg PO UD PRN (Reason: migraine headache) Qty: 15 RF: 0 tramadol 50 mg Tablet 25 mg PO Q4H PRN (Reason: pain) Qty: 30 RF: 0 sumatriptan succinate [Imitrex] 6 mg/0.5 mL Solution 6 mg subcut BID PRN (Reason: migraine headache) Qty: 10 RF: 0 gabapentin 300 mg Capsule 300 mg PO DAILY Qty: 30 RF: 0 vitamin B complex [Vitamins B Complex] Capsule 1 cap PO DAILY Qty: 30 RF: 0 Continued oxybutynin chloride 10 mg tablet extended release 24hr 10 mg PO HS RF: 0 colestipol 1 gram tablet 1 g PO HS RF: 0 baclofen 20 mg tablet 20 mg PO TID RF: 0 Discontinued methylprednisolone 4 mg tablets,dose pack See Rx Instructions .ROUTE .COMPLEX RF: 0 Discharge Orders: Discharge Order (Routine); Ordered 06/22/20 Ordered By: Geovanni Phipps Admission Data Admit Date/Time: 06/21/20 16:11 Attending Provider: Geovanni Phipps Admit Provider: Augustine Redman Primary Care Provider: Omar Haskins Other Providers: aSra Serna ; Ford Benson ; Sara Fulton ; Micheal Bowen ; Augustine Redman
--- NOTE | 2020-06-22 14:48 | Progress Notes ---
DATE: 06/22/2020 I am seeing the patient in followup of a headache that began when she had a Valsalva maneuver and persisted. A CT, CTA of the head and neck, MRI of the brain performed yesterday, which I have reviewed and MRA of the head are noncontributory. Yesterday, the patient was started on some riboflavin, magnesium, gabapentin and given Imitrex. The headache was much better yesterday, although the patient indicates to me that in the past, she took Imitrex by injection and finds it to be more helpful. IMPRESSION: History of migraine, recent status migrainosus. I discussed with the patient doing a lumbar puncture given that this headache came on in the setting of a Valsalva maneuver and was the worst headache of her life. I did explain to her that there would be a small chance that a CT would miss subarachnoid hemorrhage and that a CTA might be negative or normal even in that setting. She declined given that she has had a post-spinal headache in the past and she felt the risk was low. I would discharge her on riboflavin, magnesium, gabapentin 300 mg. I have switched her Imitrex to injection. The patient should see myself or one of my partners in followup post discharge.
[2020-06-23 10:11] LABS: Marijuana Quant, GCMS Urine 3570 ng/mL (<5)
== END 2020-06-22 15:05 | disposition home or self-care (01) | DRG 103 ==
LOC: 2N 12:53 → ED 12:53 → 2N 23:34 → 3W 06-21 18:11